=== PATIENT | female | born 1960 | race Caucasian/White ===

== ENCOUNTER 2018-05-12 07:22 | Emergency (ER) | payer OTHER ==
--- NOTE | 2018-05-12 09:43 | RAD REPORT ---
EXAM DESCRIPTION: RAD - Foot Left 3 View - 05/12/2018 7:44 am CLINICAL HISTORY: Left Foot pain status post injury FINDINGS: A mildly displaced oblique fracture involves the mid aspect of the third proximal phalanx. No dislocation is seen
--- NOTE | 2018-05-12 10:05 | ER ---
Nurse's Notes [facility] Name: Hue Hernandez Age: 57 yrs Sex: Female : 1960 Arrival Date: 05/12/2018 Time: 07:25 Bed 19 Private MD: Armando Rodriguez Diagnosis: Displaced fracture of proximal phalanx of left lesser toe(s)-Mildly displaced oblique fracture, third toe Presentation: 05/12 07:33 Presenting complaint: Patient states: kicked door yesterday on accident. C/o L third ss toe pain. Bruising noted to area. Transition of care: patient was not received from another setting of care. Onset of symptoms was May 11, 2018. Risk Assessment: Do you want to hurt yourself or someone else? Patient reports no desire to harm self or others. Initial Sepsis Screen: Does the patient meet any 2 criteria? No. Patient's initial sepsis screen is negative. Does the patient have a suspected source of infection? No. Patient's initial sepsis screen is negative. Care prior to arrival: None. 07:33 Method Of Arrival: Ambulatory ss 07:33 Acuity: TAYLOR 4 ss Historical: - Allergies: 07:38 Niacin; ss - Home Meds: 07:38 aspirin 81 mg Oral TbEC 1 tab once daily [Active]; atorvastatin 80 mg Oral tab 1 tab ss once daily [Active]; insulin glargine subcutaneous Sub-Q 20 unit nightly [Active]; insulin lispro subcutaneous 7 unit before meals [Active]; Plavix 75 mg Oral tab 1 tab once daily [Active]; - PMHx: 07:38 Diabetes - IDDM; Myocardial infarction; High Cholesterol; ss - PSHx: 07:38 Heart stents; ankle surg; ss - Immunization history:: Adult Immunizations up to date. - Social history:: Smoking status: Patient/guardian denies using tobacco. - Ebola Screening: : Patient denies exposure to infectious person Patient denies travel to an Ebola-affected area in the 21 days before illness onset. Screenin:40 Abuse screen: Denies threats or abuse. Denies injuries from another. Nutritional sg screening: No deficits noted. Tuberculosis screening: No symptoms or risk factors identified. Never had TB. Fall Risk None identified. Assessment: 07:40 General: Appears in no apparent distress. Behavior is calm, cooperative, appropriate sg for age. Pain: Complains of pain in left third toe. Neuro: No deficits noted. Cardiovascular: Heart tones S1 S2 present Capillary refill is brisk in bilateral fingers toes Patient's skin is warm and dry. Respiratory: Airway Respiratory effort is even, unlabored, Respiratory pattern is regular, symmetrical, Denies cough, shortness of breath labored breathing, pain with respiration, pain with cough, pain with movement, air hunger. GI: No signs and/or symptoms were reported involving the gastrointestinal system. : No signs and/or symptoms were reported regarding the genitourinary system. EENT: No signs and/or symptoms were reported regarding the EENT system. Derm: Skin is pink, warm \T\ dry. Musculoskeletal: Circulation, motion, and sensation intact. Range of motion: intact in all extremities, Swelling absent Reports pain in left foot. Vital Signs: 07:38 BP 112 / 83; Pulse 95; Resp 16; Pulse Ox 96% on R/A; Weight 80.29 kg; Height 5 ft. 10 ss in. (177.80 cm); Pain 6/10; 08:26 BP 94 / 74; Pulse 82; Resp 16; Pulse Ox 92% on R/A; mh5 09:18 BP 94 / 73; Pulse 81; Resp 18; Pulse Ox 94% on R/A; mh5 07:38 Body Mass Index 25.40 (80.29 kg, 177.80 cm) ss ED Course: 07:25 Patient arrived in ED. sb2 07:26 Armando Rodriguez MD is Private Physician. sb2 07:28 [facility] pm1 07:36 Triage completed. ss 07:38 Arm band placed on right wrist. ss 07:44 X-ray completed. Portable x-ray completed in exam room. Patient tolerated procedure jb2 well. 07:44 Foot Left 3 View XRAY In Process Unspecified. EDMS 09:21 Ousmane Silva, JANA is Primary Nurse. sg 09:50 Reji tape left third toe to left second toe Ortho shoe applied to left foot. sg 10:00 Fabrice Lyman MD is Attending Physician. pm1 Administered Medications: No medications were administered Outcome: 09:51 Discharge ordered by MD. pm1 10:05 Patient left the ED. ss Signatures: Dispatcher [employer] EDMS Ousmane Silva, RN RN sg Karl Mendes jb2 Keira Ferreira RN RN ss Isidro Cervantes, NILS ASPHALT SPREADER 1 Chayo Santos 5 Flores Hernandez2 Corrections: (The following items were deleted from the chart) 09:24 07:40 Pain: Complains of pain in left second toe sg sg
--- NOTE | 2018-05-12 10:05 | EDPHYS ---
Physician Documentation [facility] Name: Hue Hernandez Age: 57 yrs Sex: Female : 1960 Arrival Date: 05/12/2018 Time: 07:25 Bed 19 Private MD: Armando Rodriguez ED Physician Fabrice Lyman HPI: 05/12 10:00 This 57 yrs old Female presents to ER via Ambulatory with complaints of Toe pm1 Injury. 10:00 The patient presents with pain, that is acute. The complaints affect the left foot. pm1 Context: The problem was sustained at home, the patient is able to ambulate, Stubbed third toe. Onset: The symptoms/episode began/occurred last night. Modifying factors: The symptoms are alleviated by nothing, the symptoms are aggravated by weight bearing. Severity of symptoms: in the emergency department the symptoms are unchanged. The patient has not experienced similar symptoms in the past. The patient has not recently seen a physician. Historical: - Allergies: 07:38 Niacin; ss - Home Meds: 07:38 aspirin 81 mg Oral TbEC 1 tab once daily [Active]; atorvastatin 80 mg Oral tab 1 tab ss once daily [Active]; insulin glargine subcutaneous Sub-Q 20 unit nightly [Active]; insulin lispro subcutaneous 7 unit before meals [Active]; Plavix 75 mg Oral tab 1 tab once daily [Active]; - PMHx: 07:38 Diabetes - IDDM; Myocardial infarction; High Cholesterol; ss - PSHx: 07:38 Heart stents; ankle surg; ss - Immunization history:: Adult Immunizations up to date. - Social history:: Smoking status: Patient/guardian denies using tobacco. - Ebola Screening: : Patient denies exposure to infectious person Patient denies travel to an Ebola-affected area in the 21 days before illness onset. ROS: 10:00 MS/extremity: Positive for pain, swelling, tenderness, of the left third toe. pm1 10:00 Constitutional: Negative for fever, chills, and weight loss, Cardiovascular: Negative for chest pain, palpitations, and edema, Respiratory: Negative for shortness of breath, cough, wheezing, and pleuritic chest pain, Back: Negative for injury and pain, Skin: Negative for injury, rash, and discoloration. Exam: 10:00 Constitutional: This is a well developed, well nourished patient who is awake, alert, pm1 and in no acute distress. Head/Face: Normocephalic, atraumatic. Chest/axilla: Normal chest wall appearance and motion. Nontender with no deformity. No lesions are appreciated. Cardiovascular: Regular rate and rhythm with a normal S1 and S2. No gallops, murmurs, or rubs. Normal PMI, no JVD. No pulse deficits. Respiratory: Lungs have equal breath sounds bilaterally, clear to auscultation and percussion. No rales, rhonchi or wheezes noted. No increased work of breathing, no retractions or nasal flaring. Back: No spinal tenderness. No costovertebral tenderness. Full range of motion. Skin: Warm, dry with normal turgor. Normal color with no rashes, no lesions, and no evidence of cellulitis. 10:00 Musculoskeletal/extremity: Extremities: grossly normal except: noted in the left third toe: swelling, tenderness, ROM: intact in all extremities, Circulation is intact in all extremities. Vital Signs: 07:38 BP 112 / 83; Pulse 95; Resp 16; Pulse Ox 96% on R/A; Weight 80.29 kg; Height 5 ft. 10 ss in. (177.80 cm); Pain 6/10; 08:26 BP 94 / 74; Pulse 82; Resp 16; Pulse Ox 92% on R/A; mh5 09:18 BP 94 / 73; Pulse 81; Resp 18; Pulse Ox 94% on R/A; mh5 07:38 Body Mass Index 25.40 (80.29 kg, 177.80 cm) ss MDM: 07:28 Patient medically screened. pm1 07:31 ED course: Patient offered pain medication. Patient refused. pm1 09:49 Data reviewed: vital signs. 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 05/12 07:28 Order name: Foot Left 3 View XRAY; Complete Time: 09:45 pm1 05/12 09:46 Order name: Post-op shoe; Complete Time: 09:54 pm1 Administered Medications: No medications were administered Disposition: 10:46 Co-signature as Attending Physician, Fabrice Lyman MD I agree with the assessment and jj plan of care. Disposition: 05/12/18 09:51 Discharged to Home. Impression: Displaced fracture of proximal phalanx of left lesser toe(s) - Mildly displaced oblique fracture, third toe. - Condition is Stable. - Discharge Instructions: Toe Fracture. - Prescriptions for Tylenol- Codeine #3 300-30 mg Oral Tablet - take 2 tablets by ORAL route every 6 hours As needed; 20 tablet. - Medication Reconciliation Form, Thank You Letter, Prescription Opioid Use form. - Follow up: Emergency Department; When: As needed; Reason: Worsening of condition. Follow up: Private Physician; When: 2 - 3 days; Reason: Recheck today's complaints, Continuance of care, Re-evaluation by your physician. - Problem is new. - Symptoms have improved. Signatures: Dispatcher [employer] EDMS Fabrice Lyman MD MD cha Smirch, Shelby, RN RN Isidro Miller, NILS CAPACITY ANALYST pm1 Corrections: (The following items were deleted from the chart) 09:59 09:51 05/12/2018 09:51 Discharged to Home. Impression: Nondisplaced fracture of pm1 proximal phalanx of left lesser toe(s) - third toe. Condition is Stable. Forms are Medication Reconciliation Form, Thank You Letter, Antibiotic Education, Prescription Opioid Use. Follow up: Emergency Department; When: As needed; Reason: Worsening of condition. Follow up: Private Physician; When: 2 - 3 days; Reason: Recheck today's complaints, Continuance of care, Re-evaluation by your physician. Problem is new. Symptoms have improved. pm1 10:05 09:59 05/12/2018 09:51 Discharged to Home. Impression: Displaced fracture of proximal ss phalanx of left lesser toe(s) - Mildly displaced oblique fracture, third toe. Condition is Stable. Forms are Medication Reconciliation Form, Thank You Letter, Antibiotic Education, Prescription Opioid Use. Follow up: Emergency Department; When: As needed; Reason: Worsening of condition. Follow up: Private Physician; When: 2 - 3 days; Reason: Recheck today's complaints, Continuance of care, Re-evaluation by your physician. Problem is new. Symptoms have improved. pm1
[2018-05-12 10:11] VITALS: BP 94/73; O2SAT 94
== END 2018-05-12 10:05 | disposition home or self-care (01) ==
LOC: ER 07:22
DX: S92.512A Displaced fracture of proximal phalanx of left lesser toe(s), initial encounter for closed fracture (principal); S92.515A Nondisplaced fracture of proximal phalanx of left lesser toe(s), initial encounter for closed fracture; E11.9 Type 2 diabetes mellitus without complications; I25.2 Old myocardial infarction; Z88.8 Allergy status to other drugs, medicaments and biological substances; E78.00 Pure hypercholesterolemia, unspecified; X58.XXXA Exposure to other specified factors, initial encounter; Y93.89 Activity, other specified; Y92.9 Unspecified place or not applicable; Y99.9 Unspecified external cause status; Z79.4 Long term (current) use of insulin
CPT/HCPCS: 99283

== ENCOUNTER 2019-05-22 19:09 | Emergency (ER) | payer OTHER ==
--- OUTSIDE RECORDS SUMMARY | 2019-05-22 19:15 | XMS REPORT | Continuity of Care Document ---
:1960 Author Organization Interface Problems Problem Status Onset Classification Date Comments Source Date Reported CHEST PAIN Active 07/23/[address]UTE ST Active 07/14/[address] MYOCARDIAL Center INFARCTION CARDIAC ARREST Active 07/14/[address] ACUTE ELEVATION Active 07/14/20 [place] [id number] Medical INFRACTION Center LFLT Active 07/14/[address] Chest pain Resolved Problem 07/26/[address] [facility] Hypertension Resolved Problem 07/26/[address] [facility] ST ELEVATION Active [facility] (STEMI) [facility] MYOCARDIAL [place] INFARCTI Medications Medication Details Route Status Patient Ordering Order Source Instructions Provider Date Insulin Glargine 20 unit, 0.2 mL, Inactive [facility] 100 UNT/ML Route: SUB-Q, 2017 Medical Injectable Drug form: SOLN, Center Solution Bedtime, Dosing Weight 76.7, kg, Start date: 07/23/17 21:00:00 CDT, Duration: 30 day, Stop date: 08/21/17 21:00:00 CDTNotes: (Same as: Lantus) Do not hold insulin without contacting prescriber WASTE: F/P - Black; E - Municipal Trash Bin "single patient use only" atorvastatin 80 mg, 1 tab, Inactive 07/24[facility] Route: PO, Drug 2016 Medical form: TAB, Center Bedtime, Dosing Weight 76.7, kg, Start date: 07/23/17 21:00:00 CDT, Duration: 30 day, Stop date: 08/21/17 21:00:00 CDTNotes: Same as Lipitor clopidogrel 75 mg, 1 tab, Inactive 07/23[facility] Route: PO, Drug 2016 Medical form: TAB, Daily, Center Dosing Weight 76.7, kg, Start date: 07/23/17 9:00:00 CDT, Duration: 30 day, Stop date: 08/21/17 9:00:00 CDTNotes: (Same As: Plavix) aspirin 81 mg 81 mg, 1 tab, Inactive [place] tablet, enteric Route: PO, Drug 2017 Medical coated form: ECTAB, Center Daily, Dosing Weight 76.7, kg, Start date: 07/23/17 9:00:00 CDT, Duration: 30 day, Stop date: 08/21/17 9:00:00 CDTNotes: Do not crush or chew. (Same As: Ecotrin) Insulin Lispro 7 unit, 0.07 mL, Inactive [facility] Route: SUB-Q, 2017 Medical Drug form: SOLN, [place] TID-Before Meals, Dosing Weight 76.7, kg, Start date: 07/23/17 7:30:00 CDT, Duration: 30 day, Stop date: 08/21/17 16:30:00 CDTNotes: (Same as: Humalog ) Roll in palms of hands gently; Do not shake `vigorously. "Single Patient Use Only " (Restricted to patients requiring a dose > 60 units) WASTE: F/P - Black; E - Municipal Trash Bin Stable for 28 days at room temperature. Expires in days from Dat e Lancets 1 box, MISC, Active [facility] Daily, # 1 box, 0 2017 Medical Refill(s) Center Accu-Chek Jenise 1 ea, MISC, Active [place] Plus Blood Daily, Use for 2017 Medical Glucose Test blood glucose Center Strips monitoring., # 100 ea, Insulin dependent, Does not use insulin pump, Last DM eval date 07/21/17, 3 Refill(s) Accu-Chek Jenise 1 ea, MISC, ONCE, Active [facility] Blood Glucose Use for blood 2017 Medical Meter glucose Center monitoring, # 1 ea, Insulin dependent, Does not use insulin pump, Last DM eval date 07/21/17, 0 Refill(s) Lancets 1 box, MISC, Inactive [facility] Daily, # 1 box, 0 2017 Medical Refill(s) Center Insulin Glargine 20 unit, SUB-Q, Active [facility] 100 UNT/ML Bedtime, # 10 mL, 2017 Medical Injectable 3 Refill(s) Center Solution insulin lispro 7 unit, SUB-Q, Active [place] 100 units/mL TID-Before Meals, 2017 Medical subcutaneous # 10 mL, 3 Center injection Refill(s) clopidogrel 75 75 mg=1 tab, PO, Active [facility] mg oral tablet Daily, # 90 tab, 2017 Medical 0 Refill(s) Center atorvastatin 80 80 mg=1 tab, PO, Active [facility] mg oral tablet Bedtime, # 90 2017 Medical tab, 0 Refill(s) Center Accu-Chek Jenise 1 ea, MISC, Inactive [place] Plus Blood Daily, Use for 2017 Medical Glucose Test blood glucose Center Strips monitoring., # 100 ea, Insulin dependent, Does not use insulin pump, Last DM eval date 07/21/17, 3 Refill(s) Accu-Chek Jenise 1 ea, MISC, ONCE, Inactive [facility] Blood Glucose Use for blood 2017 Medical Meter glucose Center monitoring, # 1 ea, Insulin dependent, Does not use insulin pump, Last DM eval date 07/21/17, 0 Refill(s) aspirin 81 mg 81 mg=1 tab, PO, Active [facility] tablet, enteric Daily, # 90 tab, 2017 Medical coated 0 Refill(s) Center sodium chloride 250 mL, Rate: 999 Inactive [place] 0.9% INJ 250 mL ml/hr, Infuse 2017 Medical over: 0.3 hr, Center Route: IV, Dosing Weight 86.108 kg, Total Volume: 250, Start date: 07/21/17 1:16:00 CDT, Duration: 1 doses or times, Stop date: 07/21/17 1:33:00 CDT sodium chloride 250 mL, Rate: 999 No Longer [facility] 0.9% INJ 250 mL ml/hr, Infuse Active 2016 Medical over: 0.3 hr, Center Route: IV, Dosing Weight 86.108 kg, Total Volume: 250, Start date: 07/20/17 6:15:00 CDT, Duration: 30 day, Stop date: 08/19/17 6:14:00 CDT Calcium 3 gm, 30 mL, No Longer [facility] Gluconate Route: IVPB, PRN, Active 2016 Medical Dosing Weight Center 86.108, kg, PRN Abnormal Lab Result, For NON-ICU Patients Only., Start date: 07/20/17 4:23:00 CDT, Duration: 30 day, Stop date: 08/19/17 4:22:00 CDTNotes: WASTE: F/P - Sink; E - Municipal Trash Bin sodium phosphate 15 mmol, 5 mL, No Longer [place] Route: IVPB, PRN, Active 2017 Medical Dosing Weight Center 86.108, kg, PRN Abnormal Lab Result, For NON-ICU Patients Only., Start date: 07/20/17 4:23:00 CDT, Duration: 30 day, Stop date: 08/19/17 4:22:00 CDT potassium 15 mmol, 5 mL, No Longer [place] phosphate Route: IVPB, PRN, Active 2016 Medical Dosing Weight Center 86.108, kg, PRN Abnormal Lab Result, For NON-ICU Patients Only., Start date: 07/20/17 4:23:00 CDT, Duration: 30 day, Stop date: 08/19/17 4:22:00 CDTNotes: (Same as: K Phosphate.) 1 mMol phoshate has 1.47 mEq potassium Infuse over 4 hours Potassium 10 mEq, 50 mL, No Longer [place] Chloride Route: IVPB, Drug Active 2016 Medical form: INJ, PRN, Center Dosing Weight 86.108, kg, PRN Abnormal Lab Result, For NON-ICU Patients Only, Start date: 07/20/17 4:23:00 CDT, Duration: 30 day, Stop date: 08/19/17 4:22:00 CDTNotes: (Same as: KCL) Infuse over 2 hours. potassium 2 pkt, Route: PO, No Longer [place] phosphate-sodium Drug Form: Active 2017 Medical phosphate 250 PDR/REC, Dosing Center mg-280 mg-160 mg Weight 86.108, oral powder for kg, PRN, PRN reconstitution Abnormal Lab Result, For NON-ICU Patients Only, Start date: 07/20/17 4:23:00 CDT, Duration: 30 day, Stop date: 08/19/17 4:22:00 CDTNotes: (Same as: Phos-NaK) Each 1.5 gm pkt has 250mg phosphorous. Mix w/2.5oz water and stir. Magnesium Oxide 800 mg, 2 tab, No Longer [place] Route: PO, Drug Active 2016 Medical form: TAB, PRN, Center Dosing Weight 86.108, kg, PRN Abnormal Lab Result, For NON-ICU Patients Only., Start date: 07/20/17 4:23:00 CDT, Duration: 30 day, Stop date: 08/19/17 4:22:00 CDTNotes: (Same as: Mag-Ox 400) Magnesium oxide [id number] elemental magnesium Dose=____mg magnesium oxide (___mg elemental magnesium) Magnesium 1 gm, 100 mL, No Longer [place] Sulfate Route: IVPB, Drug Active 2016 Medical form: INJ, PRN, Center Dosing Weight 86.108, kg, PRN Abnormal Lab Result, For NON-ICU Patients Only., Start date: 07/20/17 4:23:00 CDT, Duration: 30 day, Stop date: 08/19/17 4:22:00 CDTNotes: WASTE: F/P - Sink; E - Municipal Trash Bin sodium chloride 250 mL, Rate: 250 Inactive [place] 0.9% INJ 250 mL ml/hr, Infuse 2016 Medical over: 1 hr, Center Route: IV, Dosing Weight 86.108 kg, Total Volume: 250, Start date: 07/19/17 17:06:00 CDT, Duration: 1 doses or times, Stop date: 07/20/17 17:05:00 CDT sodium chloride 250 mL, Rate: No Longer [place] 0.9% INJ 250 mL 83.33 ml/hr, Active 2016 Medical Infuse over: 3 Center hr, Route: IV, Dosing Weight 86.108 kg, Total Volume: 250, Start date: 07/19/17 9:21:00 CDT, Duration: 30 day, Stop date: 08/18/17 9:20:00 CDT sodium chloride 250 mL, Rate: 50 No Longer [place] 0.9% INJ 250 mL ml/hr, Infuse Active 2016 Medical over: 5 hr, Center Route: IV, Dosing Weight 86.108 kg, Total Volume: 250, Start date: 07/19/17 1:05:00 CDT, Duration: 30 day, Stop date: 08/18/17 1:04:00 CDT sodium chloride 1,000 mL, Rate: No Longer [place] 0.9% 1000 ml INJ 75 ml/hr, Infuse Active 2016 Medical 1,000 mL over: 13.3 hr, Center Route: IV, Dosing Weight 86.108 kg, Total Volume: 1,000, Start date: 07/18/17 16:27:00 CDT, Duration: 1 day, Stop date: 07/19/17 16:26:00 CDT sodium chloride 250 mL, Rate: 999 Inactive [place] 0.9% INJ 250 mL ml/hr, Infuse 2017 Medical over: 0.3 hr, Center Route: IV, Dosing Weight 86.108 kg, Total Volume: 250, Start date: 07/18/17 14:14:00 CDT, Duration: 1 doses or times, Stop date: 07/18/17 14:31:00 CDT sodium chloride 250 mL, Rate: 50 No Longer [place] 0.9% INJ 250 mL ml/hr, Infuse Active 2016 Medical over: 5 hr, Center Route: IV, Dosing Weight 86.108 kg, Total Volume: 250, Start date: 07/18/17 5:03:00 CDT, Duration: 30 day, Stop date: 08/17/17 5:02:00 CDT Docusate Sodium 50 mg, 1 cap, No Longer [place] 50 MG Oral Route: PO, Drug Active 2016 Medical Capsule [Colace] form: CAP, BID, Center Dosing Weight 86.108, kg, PRN Constipation, Start date: 07/18/17 0:37:00 CDT, Duration: 30 day, Stop date: 08/17/17 0:36:00 CDTNotes: (Same as: Colace) (Do Not Crush) Miralax 17 gm, 1 pkt, No Longer [place] Route: PO, Drug Active 2016 Medical form: PWDR, Center Daily, Dosing Weight 86.108, kg, PRN Constipation, Start date: 07/18/17 0:35:00 CDT, Duration: 30 day, Stop date: 08/17/17 0:34:00 CDTNotes: Dissolve in 8 oz of water or juice. (Same as: Miralax) Albuterol 0.833 3 mL, Route: NEB, No Longer [place] MG/ML / Drug Form: SOLN, Active 2016 Medical Ipratropium Dosing Weight Center [place] 0.167 86.108, kg, RQID, MG/ML Inhalant PRN Shortness of Solution breath, Start date: 07/17/17 8:16:00 CDT, Stop date: 08/16/17 8:15:00 CDTNotes: (Same as: Duoneb) heparin sodium, 5,000 unit, 1 mL, No Longer [place] porcine 2500 Route: SUB-Q, Active 2016 Medical UNT/ML Drug form: INJ, Center Injectable Q12H, Dosing Solution Weight 86.108, kg, Start date: 07/16/17 21:00:00 CDT, Duration: 30 day, Stop date: 08/15/17 9:00:00 CDTNotes: porcine heparin NS (Bolus) IV 500 mL, 100 Inactive [place] ml/hr, Infuse 2016 Medical Over: 5 hr, Center Route: IV, 500, Drug form: INJ, ONCE, Priority: STAT, Dosing Weight 86.108 kg, Start date: 07/16/17 16:22:00 CDT, Duration: 1 doses or times, Stop date: 07/16/17 16:22:00 CDT Insulin Lispro 7 unit, 0.07 mL, No Longer [place] Route: SUB-Q, Active 2016 Medical Drug form: SOLN, [place] TID-Before Meals, Dosing Weight 86.108, kg, Start date: 07/16/17 14:02:00 CDT, Duration: 30 day, Stop date: 08/15/17 11:30:00 CDTNotes: (Same as: Humalog ) Roll in palms of hands gently; Do not shake `vigorously. "Single Patient Use Only " (Restricted to patients requiring a dose > 60 units) WASTE: F/P - Black; E - Municipal Trash Bin Stable for 28 days at room temperature. Expires in days from Dat e Iohexol 85 mL, Route: Inactive [place] IVP, Drug Form: 2017 Medical SOLN, Dosing Center Weight 86.108, kg, ONCALL, STAT, Start date: 07/16/17 11:24:00 CDT, Duration: 1 doses or times, Stop date: 07/16/17 12:00:00 CDT, Dose=2.2ml/kg, Max [id number] -- "To be infused by Radiology Staff ONLY"Notes: (same as:Omnipaque 350). WASTE: F/P - Black; E - Municipal Trash Bin Lovenox 86.108 mg, 0.86 Inactive [place] mL, Route: SUB-Q, 2016 Medical Drug form: INJ, Center [id number], Dosing Weight 86.108, kg, Priority: NOW, Start date: 07/16/17 10:41:00 CDT, Duration: 30 day, Stop date: 08/14/17 22:41:00 CDTNotes: Nurse to ensure documentation of patient education per anticoagulation policy. (Same as: Lovenox) Furosemide 100 mg, 10 mL, Inactive [place] Rate: 5 mg/hour, 2017 Medical Dosing Weight Center 86.108, kg, Route: IV, Total Volume: 100, Start Date: 07/16/17 9:15:00 CDT, Duration: 30 day, Stop date: 08/15/17 9:14:00 CDT, Replace Every: 24 hr, continuousNotes: (Same as: Lasix) MEDICATION WASTE Product Size: 100 mg Product Wasted: ___ mg insulin glargine 20 unit, 0.2 mL, No Longer [place] Route: SUB-Q, Active 2016 Medical Drug form: SOLN, [place] Bedtime, Start date: 07/16/17 1:45:00 CDT, Duration: 30 day, Stop date: 08/14/17 21:00:00 CDTNotes: Same as: Lantus) Do not hold insulin without contacting prescriber WASTE: F/P - Black; E - Municipal Trash Bin Insulin regular 1 unit, 0.01 mL, No Longer [place] Route: SUB-Q, Active 2016 Medical Drug form: [facility], [place] TID-Before Meals, Dosing Weight 86.108, kg, PRN Blood Glucose Results, Start date: 07/16/17 1:19:00 CDT, Duration: 30 day, Stop date: 08/15/17 1:18:00 CDTNotes: (Same as: Humulin R) Roll in palms of hands gently; Do not shake vigorously. "single patient use only" (Restricted to patients requiring a dose > 60 units) WASTE: F/P - Black; E - Municipal Trash Bin Stable for 28 days at room temperature Expires in days from Dat e Dextrose 50% 25 gm, 50 mL, No Longer [facility] Syringe Route: IVP, Drug Active 2016 Medical Form: INJ, Dosing Center Weight 86.108, kg, PRN, PRN Blood Glucose Results, Start date: 07/16/17 1:19:00 CDT, Duration: 30 day, Stop date: 08/15/17 1:18:00 CDT Glucagon 1 mg, Route: IM, No Longer [facility] Drug form: Active 2016 Medical PDR/INJ, PRN, Center Dosing Weight 86.108, kg, PRN Blood Glucose Results, Start date: 07/16/17 1:19:00 CDT, Duration: 30 day, Stop date: 08/15/17 1:18:00 CDT Levemir 20 unit, Route: Inactive [facility] SUB-Q, Bedtime, 2017 Medical Dosing Weight Center 86.108, kg, Start date: 07/16/17 1:18:00 CDT, Duration: 30 day, Stop date: 08/14/17 21:00:00 CDT Lasix 40 mg, 4 mL, No Longer [facility] Route: IVP, Drug Active 2016 Medical form: INJ, BID Center Diuretic, Dosing Weight 86.108, kg, Start date: 07/15/17 20:06:00 CDT, Duration: 30 day, Stop date: 08/14/17 14:00:00 CDTNotes: (Same as: Lasix) MEDICATION WASTE Product Size: 40 mg Product Wasted: _0_ mg Lisinopril 5 mg, 1 tab, No Longer [facility] Route: PO, Drug Active 2016 Medical form: TAB, Daily, Center Dosing Weight 86.108, kg, Start date: 07/15/17 18:21:00 CDT, Duration: 30 day, Stop date: 08/14/17 9:00:00 CDTNotes: (Same as: Barbra Baez) Dextrose 50% 12.5 gm, 25 mL, No Longer [place] Syringe Route: IVP, Drug Active 2016 Medical Form: INJ, Dosing Center Weight 86.108, kg, PRN, PRN Blood Glucose Results, Start date: 07/15/17 13:22:00 CDT, Duration: 30 day, Stop date: 08/14/17 13:21:00 CDT Insulin regular 99 mL, Rate: No Longer [place] 100 unit + Start Insulin Active 2016 Medical sodium chloride Drip Per ICU Center 0.9% INJ 99 mL Protocol, Dosing Weight 86.108, kg, Route: IV, Total Volume: 100, Start Date: 07/15/17 13:22:00 CDT, Stop date: 08/14/17 13:21:00 CDT, Replace Every: 24 hrNotes: (Same as: Humulin R and NovoLIN R) WASTE: F/P - Black; E - Municipal Trash Bin (Do not shake) Insulin regular 99 mL, Rate: Inactive [place] 100 unit + Titrate per ICU 2017 Medical sodium chloride dosing Center 0.9% INJ 99 mL guidelines, Dosing Weight 86.108, kg, Route: IV, Total Volume: 100 mL, Start Date: 07/15/17 13:21:00 CDT, Duration: 30 day, Stop date: 08/14/17 13:20:00 CDT, Replace Every: 24 hrNotes: (Same as: Humulin R and NovoLIN R) WASTE: F/P - Black; E - Municipal Trash Bin (Do not shake) metoprolol 12.5 mg, 0.5 tab, Inactive [place] tartrate Route: PO, Drug 2016 Medical form: TAB, Daily, Center Dosing Weight 86.108, kg, Start date: 07/15/17 11:00:00 CDT, Duration: 30 day, Stop date: 08/14/17 9:00:00 CDTNotes: (Same as: Lopressor) 12.5 mg=1/2 X 25 mg TAB Insulin regular 2 unit, 0.02 mL, Inactive [facility] Route: SUB-Q, 2017 Medical Drug form: SOLN, Center TID-Before Meals, Dosing Weight 86.108, kg, PRN Blood Glucose Results, Start date: 07/15/17 9:42:00 CDT, Duration: 30 day, Stop date: 08/14/17 9:41:00 CDTNotes: (Same as: Humulin R) Roll in palms of hands gently; Do not shake vigorously. "single patient use only" (Restricted to patients requiring a dose > 60 units) WASTE: F/P - Black; E - Municipal Trash Bin Stable for 28 days at room temperature Expires in days from Dat e Glucagon 1 mg, Route: IM, No Longer [facility] Drug form: Active 2017 Medical PDR/INJ, PRN, Center Dosing Weight 86.108, kg, PRN Blood Glucose Results, Start date: 07/15/17 9:42:00 CDT, Duration: 30 day, Stop date: 08/14/17 9:41:00 CDT Dextrose 50% 12.5 gm, 25 mL, Inactive [facility] Syringe Route: IVP, Drug 2016 Medical Form: INJ, Dosing Center Weight 86.108, kg, PRN, PRN Blood Glucose Results, Start date: 07/15/17 9:42:00 CDT, Duration: 30 day, Stop date: 08/14/17 9:41:00 CDT Lasix 40 mg, 4 mL, Inactive 07/15[facility] Route: IVP, Drug 2016 Medical form: INJ, ONCE, Center Dosing Weight 86.108, kg, Start date: 07/15/17 9:41:00 CDT, Stop date: 07/15/17 9:41:00 CDTNotes: (Same as: Lasix) MEDICATION WASTE Product Size: 40 mg Product Wasted: ___ mg pneumococcal 0.5 mL, Route: Inactive 07/15[facility] capsular IM, Drug Form: 2017 Medical polysaccharide INJ, Daily, Start Center type 1 vaccine / date: 07/15/17 pneumococcal 9:00:00 CDT, capsular Duration: 1 doses polysaccharide or times, Stop type 10A vaccine date: 07/15/17 / pneumococcal 9:00:00 CDTNotes: capsular (Same as: polysaccharide Pneumovax 23) type 11A vaccine Refrigerate / pneumococcal capsular polysaccharide type 12F vaccine / pneumococcal capsular polysacchar heparin 5,000 unit, 1 mL, No Longer [facility] Route: SUB-Q, Active 2016 Medical Drug form: INJ, Center Q12H, Dosing Weight 86.108, kg, Start date: 07/15/17 9:00:00 CDT, Duration: 30 day, Stop date: 08/13/17 21:00:00 CDTNotes: porcine heparin aspirin 81 mg 81 mg, 1 tab, No Longer [facility] tablet, enteric Route: PO, Drug Active 2016 Medical coated form: ECTAB, Center Daily, kg, Start date: 07/15/17 9:00:00 CDT, Duration: 30 day, Stop date: 08/13/17 9:00:00 CDTNotes: Do not crush or chew. (Same As: Ecotrin) clopidogrel 75 mg, 1 tab, No Longer [facility] Route: PO, Drug Active 2016 Medical form: TAB, Daily, Center kg, Start date: 07/15/17 9:00:00 CDT, Duration: 30 day, Stop date: 08/13/17 9:00:00 CDTNotes: (Same As: Plavix) Calcium 1 gm, 10 mL, No Longer [facility] Gluconate Route: IVPB, PRN, Active 2016 Medical Dosing Weight Center 86.108, kg, PRN Abnormal Lab Result, Start date: 07/15/17 5:56:00 CDT, Duration: 30 day, Stop date: 08/14/17 5:55:00 CDT, FOR ICU USE ONLYNotes: WASTE: F/P - Sink; E - Municipal Trash Bin Calcium 500 mg, 1 tab, No Longer [facility] Carbonate 500 MG Route: PO, Drug Active 2016 Medical Chewable Tablet form: CHEWTAB, Center PRN, Dosing Weight 86.108, kg, PRN Abnormal Lab Result, FOR ICU USE ONLY, Start date: 07/15/17 5:56:00 CDT, Duration: 30 day, Stop date: 08/14/17 5:55:00 CDTNotes: (Same As: Tums) Calcium Carbonate 500 bf=156 mg elemental calcium Dose= mg calcium carbonate ( mg elemental calcium) potassium 45 mmol, 15 mL, No Longer [place] phosphate Route: IVPB, PRN, Active 2016 Medical Dosing Weight Center 86.108, kg, PRN Abnormal Lab Result, Start date: 07/15/17 5:56:00 CDT, Duration: 30 day, Stop date: 08/14/17 5:55:00 CDT, FOR ICU USE ONLYNotes: (Same as: K Phosphate.) 1 mMol phoshate has 1.47 mEq potassium Infuse over 4 hours Magnesium Oxide 800 mg, 2 tab, No Longer [place] Route: PO, Drug Active 2016 Medical form: TAB, PRN, Center Dosing Weight 86.108, kg, PRN Abnormal Lab Result, FOR ICU USE ONLY, Start date: 07/15/17 5:56:00 CDT, Duration: 30 day, Stop date: 08/14/17 5:55:00 CDTNotes: (Same as: Mag-Ox 400) Magnesium oxide [id number] elemental magnesium Dose=____mg magnesium oxide (___mg elemental magnesium) potassium 2 pkt, Route: PO, No Longer [place] phosphate-sodium Drug Form: Active 2017 Medical phosphate 250 PDR/REC, Dosing Center mg-280 mg-160 mg Weight 86.108, oral powder for kg, PRN, PRN reconstitution Abnormal Lab Result, FOR ICU USE ONLY, Start date: 07/15/17 5:56:00 CDT, Duration: 30 day, Stop date: 08/14/17 5:55:00 CDTNotes: (Same as: Phos-NaK) Each 1.5 gm pkt has 250mg phosphorous. Mix w/2.5oz water and stir. Magnesium 2 gm, 50 mL, No Longer [place] Sulfate Route: IVPB, Drug Active 2016 Medical form: INJ, PRN, Center Dosing Weight 86.108, kg, PRN Abnormal Lab Result, Start date: 07/15/17 5:56:00 CDT, Duration: 30 day, Stop date: 08/14/17 5:55:00 CDT, FOR ICU USE ONLYNotes: WASTE: F/P - Sink; E - Municipal Trash Bin sodium phosphate 15 mmol, 5 mL, No Longer [place] Route: IVPB, PRN, Active 2016 Medical Dosing Weight Center 86.108, kg, PRN Abnormal Lab Result, Start date: 07/15/17 5:56:00 CDT, Duration: 30 day, Stop date: 08/14/17 5:55:00 CDT, FOR ICU USE ONLY Potassium 20 mEq, 15 mL, No Longer [place] Chloride Route: [place], Drug Active 2016 Medical form: LIQ, PRN, Center Dosing Weight 86.108, kg, PRN Abnormal Lab Result, Start date: 07/15/17 5:56:00 CDT, Duration: 30 day, Stop date: 08/14/17 5:55:00 CDT, FOR ICU USE ONLYNotes: (Same as: Potassium Chloride) Klor-Con 20 mEq, 1 tab, Inactive [place] Route: PO, Drug 2016 Medical form: ERTAB, Center ONCE, Dosing Weight 86.108, kg, Start date: 07/15/17 5:45:00 CDT, Stop date: 07/15/17 5:45:00 CDTNotes: (Same as: K-Dur 20) "Do Not Crush" With food and full glass of water Lasix 20 mg, 2 mL, Inactive [place] Route: IVP, Drug 2016 Medical form: INJ, ONCE, Center Dosing Weight 86.108, kg, Start date: 07/15/17 0:14:00 CDT, Stop date: 07/15/17 0:14:00 CDTNotes: (Same as: Lasix) Dextrose 50% 12.5 gm, 25 mL, No Longer [facility] Syringe Route: IVP, Drug Active 2016 Medical Form: INJ, Dosing Center Weight 86.108, kg, PRN, PRN Blood Glucose Results, Start date: 07/14/17 23:46:00 CDT, Duration: 30 day, Stop date: 08/13/17 23:45:00 CDT Insulin regular 99 mL, Rate: No Longer [place] 100 unit + Start Insulin Active 2016 Medical sodium chloride Drip Per ICU Center 0.9% INJ 99 mL Protocol, Dosing Weight 86.108, kg, Route: IVPB, Total Volume: 100, Start Date: 07/14/17 23:46:00 CDT, Duration: 30 day, Stop date: 08/13/17 23:45:00 CDT, Replace Every: 24 hrNotes: (Same as: Humulin R and NovoLIN R) WASTE: F/P - Black; E - Municipal Trash Bin (Do not shake) Fentanyl 25 microgram, 0.5 Inactive [facility] mL, Route: IVP, 2016 Medical Drug form: INJ, Center ONCE, Dosing Weight 86.108, kg, Start date: 07/14/17 23:09:00 CDT, Stop date: 07/14/17 23:09:00 CDTNotes: (Same as: Sublimaze) Preservative free. Melatonin 3 MG 3 mg, 1 tab, No Longer [facility] Extended Release Route: PO, Drug Active 2016 Medical Tablet Form: TAB, Dosing Center Weight 86.108, kg, Bedtime, Start date: 07/14/17 22:22:00 CDT, Duration: 30 day, Stop date: 08/13/17 21:00:00 CDTNotes: (Same as: Melatonin) Acetaminophen 1 tab, Route: PO, Inactive [facility] 325 MG / Drug Form: TAB, 2017 Medical Hydrocodone Dosing Weight Center Bitartrate 5 MG 86.108, kg, ONCE, Oral Tablet Start date: [[place] 5/325] 07/14/17 21:42:00 CDT, Stop date: 07/14/17 21:42:00 CDTNotes: (Same as: [place] 325/5) Do not exceed 4gm/day of acetaminophen. atorvastatin 80 mg, 1 tab, No Longer [facility] Route: PO, Drug Active 2016 Medical form: TAB, Center Bedtime, Dosing Weight 86.108, kg, Start date: 07/14/17 21:00:00 CDT, Duration: 30 day, Stop date: 08/12/17 21:00:00 CDTNotes: Same as Lipitor Saline Flush 10 ml, Route: No Longer [facility] 0.9% IVP, Drug Form: Active 2017 Medical INJ, kg, Q12H, Center Start date: 07/14/17 21:00:00 CDT, Duration: 30 day, Stop date: 08/13/17 9:00:00 CDTNotes: (Same as: BD Posiflush) Tylenol 650 mg, 2 tab, No Longer [place] Route: PO, Drug Active 2016 Medical form: TAB, Q6H, Center Dosing Weight 86.108, kg, PRN Pain Score 1-3, Start date: 07/14/17 16:40:00 CDT, Duration: 30 day, Stop date: 08/13/17 16:39:00 CDTNotes: Do not exceed 4 gm/day. (Same as: Tylenol) Sodium Chloride 250 mL, 250 Inactive [place] 0.9% (Bolus) IV ml/hr, Infuse 2017 Medical Over: 1 hr, Center Route: IV, 250, Drug form: INJ, ONCALL, Priority: Routine, Dosing Weight 86.108 kg, Start date: 07/14/17 15:00:00 CDT, Duration: 1 doses or times sodium chloride 750 mL, Rate: 75 No Longer [place] 0.9% 1000 ml INJ ml/hr, Infuse Active 2016 Medical 750 mL over: 10 hr, Center Route: IV, Dosing Weight 86.108 kg, Total Volume: 750, Start date: 07/14/17 14:52:00 CDT, Duration: 24 hr, Stop date: 07/15/17 14:51:00 CDT Saline Flush 10 ml, Route: No Longer [place] 0.9% IVP, Drug Form: Active 2017 Medical INJ, kg, PRN, PRN [place] Flush, Start date: 07/14/17 13:14:00 CDT, Duration: 30 day, Stop date: 08/13/17 13:13:00 CDTNotes: (Same as: BD Posiflush) Nitroglycerin 0.4 mg, 1 tab, No Longer [place] Route: SL, Drug Active 2016 Medical form: TAB, Q5Min, Center kg, PRN Chest Pain, Start date: 07/14/17 13:14:00 CDT, Duration: 3 doses or times, Stop date: Limited # of timesNotes: (Same as:Nitroquick, Nitrostat) "Do Not Crush" Sublingual tablet Allergies, Adverse Reactions, Alerts Substance Category Reaction Severity Reaction Status Date Comments Source type Reported niacin Assertion Drug Active [facility] allergy [facility] Immunizations Immunization Date Given Site Status Last Comments Source Updated pneumococcal 07/21/2017 Right completed [facility] 23-valent vaccine Deltoid [facility] Results Order Name Results Value Reference Date Interpretation Comments Source Range BACTERIAL - MRSA by PCR Negative 07/23 [facility] SEROLOGY [facility] (07/23/17 6:54 AM) [facility] CARDIAC CK MB Index 1.9 0.0 - 2.5 07/23 [facility] ENZYMES [facility] CARDIAC CK MB 4.3 ng/mL 0.5 - 3.6 07/23 [facility] ENZYMES [facility] CARDIAC Troponin-T 0.629 0.000 - 07/23 Result [facility] ENZYMES ng/mL 0.100 /2016 Comment: [facility] Result(s) called to Darshan Johnson at 07/23/2017 08:20 byMIA. Read back OK. CARDIAC Troponin-I 1.65 ng/mL 0.00 - 07/23 Result [facility] ENZYMES 0.40 /2016 Comment: [facility] Result(s) called to Esther Johnson at 07/23/2017 08:29 byJP. Read back OK. CARDIAC Total CK 229 unit/L 12 - 191 07/23 [facility] CHEM PANEL eGFR 68 07/23 Result Comment: The eGFR is calculated using the CKD-EPI formula. In most young, healthy individuals the eGFR will be >90 mL/ min/1.73m2. The eGFR declines with age. An eGFR of 60-89 may be normal in [facility] mL/min/1.7 /2017 some populations, particularly the elderly, for whom the CKD-EPI formula has not been extensively validated. Use of the eGFR is not recommended in the following populations: [address] Individuals with unstable creatinine concentrations, including patients and those with serious co-morbid conditions. Patients with extremes in muscle mass or diet. The data above are obtained from the National Kidney Disease Education Program (NKDEP) which additionally recommends that when the eGFR is used in patients with extremes of body mass index for purposes of drug dosing, the eGFR should be multiplied by the estimated BMI. CHEM PANEL Bili Total 0.4 mg/dL 0.2 - 1.3 07/[address] CHEM PANEL AST 34 unit/L 0 - 37 07/[address] CHEM PANEL Alk Phos 132 unit/L 39 - 136 07/[address] CHEM PANEL Glucose Lvl 121 mg/dL 70 - 99 07/[address] CHEM PANEL Creatinine 0.93 mg/dL 0.50 - 07/23 [facility] Lvl 1.40 [facility] CHEM PANEL BUN 21 mg/dL 7 - 22 07/[address] CHEM PANEL ALT 53 unit/L 0 - 65 07/[address] CHEM PANEL Albumin Lvl 3.3 g/dL 3.5 - 5.0 07/[address] CHEM PANEL CO2 23 meq/L 24 - 32 07/[address] CHEM PANEL Potassium Lvl 3.9 meq/L 3.5 - 5.1 07/[address] CHEM PANEL Chloride Lvl 105 meq/L 95 - 109 07/[address] CHEM PANEL Sodium Lvl 138 meq/L 135 - 145 07/[address] CHEM PANEL Calcium Lvl 8.5 mg/dL 8.5 - 10.5 07/[address] CHEM PANEL Total Protein 6.9 g/dL 6.4 - 8.4 07/[address] CHEM PANEL A/G Ratio 0.9 0.7 - 1.6 07/[address] CHEM PANEL Globulin 3.6 g/dL 2.7 - 4.2 07/[address] CHEM PANEL B/C Ratio 23 6 - 25 07/[address] CHEM PANEL AGAP 13.9 meq/L 10.0 - 07/23 [place] 20.0 [facility] HEMATOLOGY Eosinophils # 0.3 K/CMM 0.0 - 0.5 07/[address] HEMATOLOGY Basophils # 0.1 K/CMM 0.0 - 0.2 07/[address] HEMATOLOGY Monocytes # 0.6 K/CMM 0.0 - 0.8 07/[address] HEMATOLOGY Macrocyte 1+ None Seen 07/23 [facility] (07/23/17 6:54 AM) HEMATOLOGY Monocytes 6.7 % 2.0 - 12.0 07/23 [facility] HEMATOLOGY Segs 68.5 % 45.0 - 07/23 [facility] 75.0 [facility] HEMATOLOGY Lymphocytes 20.8 % 20.0 - 07/23 40.0 [facility] HEMATOLOGY Lymphocytes # 1.8 K/CMM 1.0 - 5.5 07/23 [facility] HEMATOLOGY Eosinophils 3.1 % 0.0 - 4.0 07/23 [facility] HEMATOLOGY Basophils 0.9 % 0.0 - 1.0 07/23 [facility] HEMATOLOGY Segs-Bands # 6.1 K/CMM 1.5 - 8.1 07/23 [facility] HEMATOLOGY PTT 36.2 s 22.9 - 07/23 35.8 [facility] HEMATOLOGY PT 13.6 s 12.0 - 07/23 14.7 [facility] HEMATOLOGY INR 1.02 0.85 - 07/23 1.17 [facility] HEMATOLOGY Platelet 178 K/CMM 133 - 450 07/23 [facility] HEMATOLOGY MPV 9.5 fL 7.4 - 10.4 07/23 [facility] HEMATOLOGY RDW 13.8 % 11.5 - 07/23 14.5 [facility] HEMATOLOGY MCHC 33.5 g/dL 32.0 - 07/23 [place] 36.0 [facility] HEMATOLOGY Hgb 11.8 g/dL 12.0 - 07/23 16.0 [facility] HEMATOLOGY Hct 35.3 % 36.0 - 07/23 48.0 [facility] HEMATOLOGY MCV 102.9 fL 80.0 - 07/23 [place] 98.0 [facility] HEMATOLOGY MCH 34.4 pg 27.0 - 07/23 31.0 [facility] HEMATOLOGY WBC 8.8 K/CMM 3.7 - 10.4 07/23 [facility] HEMATOLOGY RBC 3.43 M/CMM 4.20 - 07/23 [facility] 5.40 [facility] PARATHYROID Ca Norm WB 0.96 1.05 - 07/23 [facility] PROFILE mMol/L 1. [facility] PARATHYROID Ca Ion WB 0.93 1.05 - 07/23 [facility] PROFILE mMol/L 1. [facility] Chest 1view Chest 1view EXAM: XR CHEST 1 VIEW 07/23 - [facility] DX DX /2016 - [facility] DATE: 07/23/2017 7:59 AM CDT Read by: Litzy Hewitt MD Dictated Date/time: 07/23/17 09:19 Electronically Signed by: Litzy Hewitt MD 07/23/17 11:55 FINAL REPORT INDICATION: - short of breath. FINDINGS: Comparison is made to July 18. The cardiomediastinal silhouette is stable. There is platelike atelectasis in the bilateral lower lobes. No pleural effusions are identified. The Salcha-Sony catheter has been removed. IMPRESSION: Bilateral lower lobe platelike atelectasis. BLOOD BANK Antibody Scrn Negative 07/21 [facility] RESULTS [facility] (07/21/17 2:24 AM) [facility] BLOOD BANK ABO/Rh O POS 07/21 [facility] CHEM PANEL Magnesium Lvl 2.1 mg/dL 1.8 - 2.4 07/21 [facility]2016 [facility] CHEM PANEL Phosphorus 3.2 mg/dL 2.5 - 4.5 07/21 [facility]2016 [facility] CHEM PANEL eGFR 63 07/21 Result Comment: The eGFR is calculated using the CKD-EPI formula. In most young, healthy individuals the eGFR will be >90 mL/ min/1.73m2. The eGFR declines with age. An eGFR of 60-89 may be normal in [facility] mL/min/1. some populations, particularly the elderly, for whom the CKD-EPI formula has not been extensively validated. Use of the eGFR is not recommended in the following populations: [address] Individuals with unstable creatinine concentrations, including patients and those with serious co-morbid conditions. Patients with extremes in muscle mass or diet. The data above are obtained from the National Kidney Disease Education Program (NKDEP) which additionally recommends that when the eGFR is used in patients with extremes of body mass index for purposes of drug dosing, the eGFR should be multiplied by the estimated BMI. CHEM PANEL Chloride Lvl 103 meq/L 95 - 109 07/21 [facility] CHEM PANEL Potassium Lvl 3.8 meq/L 3.5 - 5.1 07/21 [facility] CHEM PANEL BUN 18 mg/dL 7 - 22 07/21 [facility] CHEM PANEL Sodium Lvl 137 meq/L 135 - 145 07/21 [facility] CHEM PANEL Creatinine 1.00 mg/dL 0.50 - 07/21 [facility] Lvl 1.40 /2016 [facility] CHEM PANEL Calcium Lvl 8.8 mg/dL 8.5 - 10.5 07/21 [facility] CHEM PANEL CO2 28 meq/L 24 - 32 07/21 2016 [facility] CHEM PANEL Glucose Lvl 120 mg/dL 70 - 99 07/21 [facility] CHEM PANEL AGAP 9.8 meq/L 10.0 - 07/21 20.0 [facility] HEMATOLOGY RBC 3.54 M/CMM 4.20 - 07/21 [facility] 5.40 [facility] HEMATOLOGY Hct 35.9 % 36.0 - 07/21 [facility] 48.0 [facility] HEMATOLOGY Hgb 12.3 g/dL 12.0 - 07/21 [facility] 16.0 [facility] HEMATOLOGY MCH 34.7 pg 27.0 - 07/21 [facility] 31.0 [facility] HEMATOLOGY MCV 101.6 fL 80.0 - 07/21 [facility] 98.0 [facility] HEMATOLOGY WBC 8.6 K/CMM 3.7 - 10.4 07/21 [facility] HEMATOLOGY MPV 10.1 fL 7.4 - 10.4 07/21 [facility] HEMATOLOGY Platelet 160 K/CMM 133 - 450 07/21 [facility] HEMATOLOGY MCHC 34.2 g/dL 32.0 - 07/21 [facility] 36.0 [facility] HEMATOLOGY RDW 13.4 % 11.5 - 07/21 [facility] 14.5 [facility] HEMATOLOGY Macrocyte 1+ None Seen 07/21 [facility]* [facility] (07/21/17 2:24 AM) HEMATOLOGY Basophils # 0.1 K/CMM 0.0 - 0.2 07/[address] [place] [address] HEMATOLOGY Lymphocytes # 1.6 K/CMM 1.0 - 5.5 07/21 2016 [facility] HEMATOLOGY Segs-Bands # 6.0 K/CMM 1.5 - 8.1 07/21 [facility] HEMATOLOGY Eosinophils # 0.3 K/CMM 0.0 - 0.5 07/21 [facility] HEMATOLOGY Monocytes # 0.7 K/CMM 0.0 - 0.8 07/21 [facility]2016 [facility] HEMATOLOGY Basophils 0.7 % 0.0 - 1.0 07/21 2016 [facility] HEMATOLOGY Monocytes 7.9 % 2.0 - 12.0 07/21 [facility] HEMATOLOGY Lymphocytes 18.4 % 20.0 - 07/21 [place] 40.0 [facility] HEMATOLOGY Eosinophils 3.7 % 0.0 - 4.0 07/21 2016 [facility] HEMATOLOGY Segs 69.3 % 45.0 - 07/21 [facility] 75.0 [facility] PARATHYROID Ca Norm WB 1.15 1.05 - 07/21 [facility] PROFILE mMol/L 1. [facility] PARATHYROID Ca Ion WB 1.16 1. - 07/21 [facility] PROFILE mMol/L . [facility] CHEM PANEL Calcium Lvl 8.2 mg/dL 8.5 - 10.5 07/[address] PARATHYROID Ca Ion WB 0.99 1.05 - 07/20 [facility] PROFILE mMol/L . [facility] PARATHYROID Ca Norm WB 1.03 1.05 - 07/20 [facility] PROFILE mMol/L . [facility] CARDIAC CK MB Index 1.2 0.0 - 2.5 07/20 [facility] [address] CARDIAC CK MB 2.5 ng/mL 0.5 - 3.6 07/20 [facility] CARDIAC Total CK 217 unit/L 12 - 191 07/20 [facility] [address] CHEM PANEL Magnesium Lvl 1.5 mg/dL 1.8 - 2.4 07/20 [facility]2016 [facility] CHEM PANEL Phosphorus 2.4 mg/dL 2.5 - 4.5 07/[address] CHEM PANEL eGFR 62 07/20 Result Comment: The eGFR is calculated using the CKD-EPI formula. In most young, healthy individuals the eGFR will be >90 mL/ min/1.73m2. The eGFR declines with age. An eGFR of 60-89 may be normal in [facility] mL/min/1.7 /2017 some populations, particularly the elderly, for whom the CKD-EPI formula has not been extensively validated. Use of the eGFR is not recommended in the following populations: [place] [address] [facility] Individuals with unstable creatinine concentrations, including patients and those with serious co-morbid conditions. Patients with extremes in muscle mass or diet. The data above are obtained from the National Kidney Disease Education Program (NKDEP) which additionally recommends that when the eGFR is used in patients with extremes of body mass index for purposes of drug dosing, the eGFR should be multiplied by the estimated BMI. CHEM PANEL CO2 17 meq/L 24 - 32 07/20 [facility] CHEM PANEL Chloride Lvl 105 meq/L 95 - 109 07/20 [facility] CHEM PANEL Calcium Lvl 6.7 mg/dL 8.5 - 10.5 07/20 Result Comment: [facility] Result(s) called to Eliseo Xavier at 07/20/2017 04:18 byJw. Read back OK. CHEM PANEL AGAP 19.3 meq/L 10.0 - 07/20 20. [facility] CHEM PANEL Potassium Lvl 4.3 meq/L 3.5 - 5.1 07/20 [facility] CHEM PANEL BUN 13 mg/dL 7 - 22 07/20 [facility] CHEM PANEL Glucose Lvl 72 mg/dL 70 - 99 07/20 [facility] CHEM PANEL Sodium Lvl 137 meq/L 135 - 145 07/20 [facility] CHEM PANEL Creatinine 1.01 mg/dL 0.50 - 07/20 [facility] Lvl 1.40 [facility] HEMATOLOGY RDW 13.6 % 11.5 - 07/20 14. [facility] HEMATOLOGY MCHC 33.7 g/dL 32.0 - 07/20 [place] 36.0 [facility] HEMATOLOGY MCH 34.8 pg 27.0 - 07/20 31.0 [facility] HEMATOLOGY MCV 103.1 fL 80.0 - 07/20 98.0 [facility] HEMATOLOGY RBC 3.30 M/CMM 4.20 - 07/20 [place] 5.40 [facility] HEMATOLOGY Hgb 11.5 g/dL 12.0 - 07/20 [place] 16.0 [facility] HEMATOLOGY WBC 8.1 K/CMM 3.7 - 10.4 07/[address] HEMATOLOGY MPV 10.0 fL 7.4 - 10.4 07/[address] HEMATOLOGY Platelet 141 K/CMM 133 - 450 07/[address] HEMATOLOGY Hct 34.0 % 36.0 - 07/20 [facility] 48.0 [facility] HEMATOLOGY Eosinophils # 0.3 K/CMM 0.0 - 0.5 07/[address] HEMATOLOGY Basophils # 0.1 K/CMM 0.0 - 0.2 07/[address] HEMATOLOGY Macrocyte 1+ None Seen 07/20 [facility] (07/20/17 2:23 AM) HEMATOLOGY Lymphocytes # 1.6 K/CMM 1.0 - 5.5 07/[address] HEMATOLOGY Monocytes 6.2 % 2.0 - 12.0 07/[address] HEMATOLOGY Eosinophils 4.0 % 0.0 - 4.0 07/[address] HEMATOLOGY Basophils 1.1 % 0.0 - 1.0 07/[address] HEMATOLOGY Segs-Bands # 5.6 K/CMM 1.5 - 8.1 07/[address] HEMATOLOGY Monocytes # 0.5 K/CMM 0.0 - 0.8 07/[address] HEMATOLOGY Lymphocytes 19.3 % 20.0 - 07/20 [facility] 40.0 [facility] HEMATOLOGY Segs 69.4 % 45.0 - 07/20 [facility] 75.0 [facility] CHEM PANEL Phosphorus 2.5 mg/dL 2.5 - 4.5 07/[address] CHEM PANEL Magnesium Lvl 1.9 mg/dL 1.8 - 2.4 07/[address] ELECTROLYTE CO2 23 meq/L 24 - 32 07/19 [facility] ELECTROLYTE AGAP 13.8 meq/L 10.0 - 07/19 [facility] 20. [facility] ELECTROLYTE eGFR 70 07/19 Result Comment: The eGFR is calculated using the CKD-EPI formula. In most young, healthy individuals the eGFR will be >90 mL/ min/1.73m2. The eGFR declines with age. An eGFR of 60-89 may be normal in [facility] mL/min/1.7 some populations, particularly the elderly, for whom the CKD-EPI formula has not been extensively validated. Use of the eGFR is not recommended in the following populations: [address] Individuals with unstable creatinine concentrations, including patients and those with serious co-morbid conditions. Patients with extremes in muscle mass or diet. The data above are obtained from the National Kidney Disease Education Program (NKDEP) which additionally recommends that when the eGFR is used in patients with extremes of body mass index for purposes of drug dosing, the eGFR should be multiplied by the estimated BMI. ELECTROLYTE BUN 22 mg/dL 7 - 22 07/19 [facility] ELECTROLYTE Chloride Lvl 104 meq/L 95 - 109 07/19 [facility] ELECTROLYTE Potassium Lvl 3.8 meq/L 3.5 - 5.1 07/19 [facility]2016 [facility] ELECTROLYTE Sodium Lvl 137 meq/L 135 - 145 07/19 [facility] ELECTROLYTE Creatinine 0.91 mg/dL 0.50 - 07/19 [facility] Lvl 1.40 [facility] ELECTROLYTE Glucose Lvl 156 mg/dL 70 - 99 07/19 [facility] HEMATOLOGY WBC 10.8 K/CMM 3.7 - 10.4 07/19 [facility] HEMATOLOGY RBC 3.33 M/CMM 4.20 - 07/19 [place] 5.40 [facility] HEMATOLOGY Hgb 11.6 g/dL 12.0 - 07/19 [place] 16.0 [facility] HEMATOLOGY Hct 34.2 % 36.0 - 07/19 [place] 48.0 [facility] HEMATOLOGY MCHC 34.1 g/dL 32.0 - 07/19 [place] 36.0 [facility] HEMATOLOGY MCV 102.5 fL 80.0 - 07/19 [place] 98.0 [facility] HEMATOLOGY MCH 34.9 pg 27.0 - 07/19 [place] 31.0 [facility] HEMATOLOGY Platelet 142 K/CMM 133 - 450 07/19 [facility] HEMATOLOGY MPV 10.3 fL 7.4 - 10.4 07/19 [facility] HEMATOLOGY RDW 13.6 % 11.5 - 07/19 [facility] [place] 14.5 [facility] HEMATOLOGY Eosinophils 2.8 % 0.0 - 4.0 07/19 [facility] HEMATOLOGY Basophils 0.5 % 0.0 - 1.0 07/19 2016 [facility] HEMATOLOGY Monocytes 6.5 % 2.0 - 12.0 07/19 [facility]2016 [facility] HEMATOLOGY Macrocyte 1+ None Seen 07/19 [facility] (07/19/17 3:48 AM) HEMATOLOGY Segs 83.0 % 45.0 - 07/19 [facility] 75.0 [facility] HEMATOLOGY Lymphocytes 7.2 % 20.0 - 07/19 [facility] 40.0 [facility] HEMATOLOGY Monocytes # 0.7 K/CMM 0.0 - 0.8 07/19 [facility]2016 [facility] HEMATOLOGY Eosinophils # 0.3 K/CMM 0.0 - 0.5 07/19 [facility] [address] [place] [address] HEMATOLOGY Segs-Bands # 9.0 K/CMM 1.5 - 8.1 07/19 [facility] HEMATOLOGY Lymphocytes # 0.8 K/CMM 1.0 - 5.5 07/[address] HEMATOLOGY Basophils # 0.1 K/CMM 0.0 - 0.2 07/[address] PARATHYROID Ca Ion WB 1.00 1.05 - 07/19 [facility] PROFILE mMol/L 1. [facility] PARATHYROID Ca Norm WB 1.02 1.05 - 07/19 [facility] PROFILE mMol/L 1. [facility] Chest 1 v Chest 1 v for EXAM: XR CHEST 1 VIEW 07/18 - [facility] for Placement /2016 - Medical Placement This report was dictated by a Pattern Stamper/Fellow. I have personally reviewed the images as Center DX well as the Resident's interpretation and agree with the findings. DATE: 07/18/2017 2:51 PM CDT Read by: Raven (FELLOW)Leonid MD Resident: Raven (FELLOW)Leonid MD Dictated Date/time: 07/18/17 15:41 Electronically Signed by: Keshav Vieira MD 07/18/17 16:59 FINAL REPORT INDICATION: Line Placement - Chest 1 view for line placement COMPARISON: Semierect AP chest performed 07/07/2017. TECHNIQUE: AP chest FINDINGS: Lines, tubes and hardware: Salcha-Sony catheter has been placed and the tip terminates in the pulmonary trunk. Lungs and pleura: Subsegmental atelectasis is present in the left lung base but appears impro álvaro from the prior exam. Compared to the prior examination there is also resolution of the subsegmental atelectasis in the right lung base. Costophrenic sulci are sharp. Heart and mediastinum: The heart size is normal for technique. The mediastinal contours are normal. Bones: No acute bony abnormality is identified. IMPRESSION: 1. Interval placement of Salcha-Sony catheter with the tip terminating in the pulmonary trunk. BLOOD BANK Antibody Scrn Negative 07/18 [facility] (07/18/17 5:33 AM) [facility] BLOOD BANK ABO/Rh O POS 07/18 [place] RESULTS [facility] HEMATOLOGY PTT 29.2 s 22.9 - 07/18 [place] 35.8 /2016 [facility] HEMATOLOGY PT 13.5 s 12.0 - 07/18 [place] 14.7 /2016 [facility] HEMATOLOGY INR 1.01 0.85 - 07/18 [place] 1. [facility] CARDIAC Total CK 547 unit/L 12 - 191 07/17 [place] ENZYMES /2016 [facility] CARDIAC CK MB Index 1.0 0.0 - 2.5 07/17 [place] EN[facility] /2016 [facility] CARDIAC CK MB 5.3 ng/mL 0.5 - 3.6 07/17 [place] ENZYMES /2016 [facility] CARDIAC Troponin-I 17.30 0.00 - 07/17 Result [facility] ENZYMES ng/mL 0.40 /2016 Comment: [facility] Result(s) called to Rosales Lira at 07/17/2017 04:58 byJw. Read back OK. CARDIAC Troponin-T 3.050 0.000 - 07/17 Result [facility] ENZYMES ng/mL 0.100 /2016 Comment: [facility] Result(s) called to Rosales Lira at 07/17/2017 04:58 byJw. Read back OK. Chest 1view Chest 1view EXAM: XR CHEST 1 VIEW 07/17 - [place] DX - Medical This report was dictated by a Pattern Stamper/Fellow. I have personally reviewed the images as Center well as the Resident's interpretation and agree with the findings. DATE: 07/17/2017 6:56 AM CDT Read by: Cal Lowe MD Resident: Cal Lowe MD Dictated Date/time: 07/17/17 09:07 Electronically Signed by: Guilherme Hogue MD 07/17/17 11:09 FINAL REPORT INDICATION: - compare to previous COMPARISON: 07/16/2017 TECHNIQUE: AP chest FINDINGS: Lines, tubes and hardware: None. Lungs and pleura: Left retrocardiac opacity containing air bronchograms is slightly improved from prior exam. Bibasilar subsegmental atelectasis is present. Small right pleural effusion is unchanged. Pulmonary vascularity is normal. Heart and mediastinum: The cardiomediastinal silhouette is stable Bones: Unchanged IMPRESSION: 1. Slight interval improvement in left retrocardiac opacity which may be due to atelectasis and/or pneumonia. 2. Bibasilar subsegmental atelectasis. 3. Stable small right pleural effusion. CHEM PANEL Procalcitonin 0.06 ng/mL 0.00 - 07/16 [facility] Lvl 0.10 [facility] Chest CTA Chest CTA EXAM: CTA CHEST WITH CONTRAST 07/16 - [facility] /2016 [facility] This report was dictated by a Pattern Stamper/Fellow. I have personally reviewed the images as Center well as the Resident's interpretation and agree with the findings. DATE: 07/16/2017 10:22 AM CDT Read by: Cal Lowe MD Resident: Cal Lowe MD Dictated Date/time: 07/16/17 13:44 Electronically Signed by: Keshav Vieira MD 07/17/17 09:24 FINAL REPORT INDICATION: Shortness of Breath - S/P RI COMPARISON: None available TECHNIQUE: Volumetric CT acquisition of the chest, during pulmonary arterial phase, after intravenous contrast. Axial, sagittal, coronal, and oblique MIP reconstructions are created at the acquisition workstation. IV Contrast: 85 mL Omnipaque 350 DLP: 542.1 mGy-cm FINDINGS: Lines and tubes: None. Lower neck: Unremarkable. Heart and Mediastinum: Cardiothoracic ratio measures 12.2/24.5. Measurements and appearance of the thoracic aorta are normal. At the same level where the ascending aorta measures 3 cm the pulmonary trun k measures 2.9 cm. Left anterior descending coronary artery stent present. Focal hypoattenuation of the left ventricular apex consistent with prior infarction. Mild increased attenuation surrounding the ascending aorta and arch is nonspecific and likely represent mediastinal edema. There is no pulmonary embolus. Pleura: Trace bilateral pleural effusion. Lymph Nodes: There is no hilar, mediastinal, axillary or internal mammary lymphadenopathy. Lungs: Bibasilar enhancing consolidation with posterior inferior displacement of the horizontal and left major fissures. Scattered subsegmental atelectasis in the right middle lobe and left upper lobe. Trachea: Unremarkable Upper abdomen: Incompletely characterized hepatic segment VIII lesion ( series 3, image 109) measures 1.6 x 1.5 cm. Liver is smooth in contour. No arterial enhancing mass lesion identified. Remainder of the upper abdomen is unremarkable. Bones and soft tissues: No acute fracture or malalignment. No suspicious osseous lesion. Diffuse decreased bone mineral density. No soft tissue abnormality. IMPRESSION: 1. No pulmonary embolism identified. 2. Abundant atelectasis in both lower lobes. Scattered subsegmental atelectasis in the right middle and left lower lobes. 3. Incompletely characterized hypodense lesion in hepatic segment VIII lesion likely of benign etiology, however ultrasound can be obtained for further characterization. 4. Osteopenia. HEMATOLOGY Large Plt Slight 07/16 [facility] /[address] [place] [address] HEMATOLOGY INR 1.07 0.85 - 07/16 [facility] 1.17 [facility] HEMATOLOGY PTT 29.6 s 22.9 - 07/16 [facility] 35.8 [facility] HEMATOLOGY PT 14.1 s 12.0 - 07/16 [facility] 14.7 [facility] Chest 1view Chest 1view EXAM: XR CHEST 1 VIEW 07/16 - [facility] DX DX /2016 - [facility] DATE: 07/16/2017 3:00 AM CDT Read by: Litzy Hewitt MD Dictated Date/time: 07/16/17 08:54 Electronically Signed by: Litzy Hewitt MD 07/16/17 10:00 FINAL REPORT INDICATION: am chest - am chest. FINDINGS: Comparison is made to yesterday. The cardiomediastinal silhouette is stable. A left retrocardiac opacity containing air bronchograms could be due to atelectasis and/or pneumonia. There is subsegmental atelectasis in the right lower lobe. A small right pleural effusion is identified. IMPRESSION: No significant change. CARDIAC proBNP 6141 pg/mL 0 - 125 07/15 [place] [facility] /2016 [facility] CARDIAC BNP 144 pg/mL <=100 07/15 [place] [facility] pg/mL /2016 [facility] BLOOD BANK Antibody Scrn Negative 07/15 [place] RESULTS Medical (07/15/17 12:42 PM) [facility] BLOOD BANK ABO/Rh O POS 07/15 [place] RESULTS [facility] Chest 1view Chest 1view EXAM: XR CHEST 1 VIEW 07/15 - [place] DX DX - [facility] DATE: 07/15/2017 Read by: Marie Wells MD Dictated Date/time: 07/15/17 10:40 Electronically Signed by: Marie Wells MD 07/15/17 10:41 FINAL REPORT INDICATION: HYPOXEMIA - N/A . Comparison is made with yesterday FINDINGS: Cardiomediastinal silhouette is unchanged. There is platelike atelectasis at the right lung base. There is an opacity at the left lung base obscuring the left hemidiaphragm and the silhouette of the descending thoracic aorta. This opacity may represent left pleural effusion with or without left lower lobe consolidation or atelectasis.. The upper lungs are clear. No pneumothorax is visualized however a supine or semierect radiograph is suboptimal for that determination. An erect film of the chest is necessary in order to exclude small pneumothoraces.. There are small layering bilateral pleural effusions IMPRESSION: No significant interval change when compared to prior radiograph. CARDIAC Troponin-I >40 ng/mL 0.00 - 07/15 Result [facility] ENZYMES 0.40 /2016 Comment: [facility] Result(s) called to Cirilo Merino at 07/15/2017 02:31 by AC. Read back OK. CARDIAC BNP 280 pg/mL <=100 07/15 [place] ENZYMES pg/mL /2016 [facility] SPECIAL Hgb A1C 11.1 % <=5.6 % 07/15 [place] CHEMISTRY /2016 [facility] Chest 1view Chest 1view EXAM: XR CHEST 1 VIEW 07/14 - [place] DX DX - [facility] This report was dictated by a Pattern Stamper/Fellow. I have personally reviewed the images as Center well as the Resident's interpretation and agree with the findings. DATE: 07/14/2017 11:09 PM CDT Read by: Sheng Estrada (Fellow) Resident: Sheng Estrada (Fellow) Dictated Date/time: 07/15/17 08:45 Electronically Signed by: Keshav Vieira MD 07/15/17 08:55 FINAL REPORT INDICATION: resp distress - new onset hypoxia COMPARISON: None. TECHNIQUE: AP chest FINDINGS: Lines, tubes and hardware: None. Lungs and pleura: There is mild bibasilar opacity left greater than right with which could represent atelectasis and/or consolidation. Possible trace pleural effusions. No definite pneumothorax is seen within the limitations of this semierect film. Heart and mediastinum: The cardiomediastinal silhouette is normal in size. The mediastinal contours are normal. Bones: No acute bony abnormality is identified. IMPRESSION: 1. Bibasilar and left retrocardiac opacity, possibly representing atelectasis and/or consolidation. BACTERIAL - MRSA by PCR Negative 07/14 [facility] (07/14/17 1:44 PM) [place] Vital Signs Vital Sign Value Date Comments Source Systolic (mm Hg) 93 07/23/[address] [facility] Diastolic (mm Hg) 64 07/23/[address] [facility] Temperature Oral (F) 97.8 F 07/23/[address] [facility] Respitory Rate 24 07/23/[address] [facility] Systolic (mm Hg) 95 07/23/[address] [facility] Diastolic (mm Hg) 65 07/23/[address] [facility] Respitory Rate 19 07/23/[address] [facility] Systolic (mm Hg) 90 07/23/[address] [facility] Diastolic (mm Hg) 60 07/23/[address] [facility] Respitory Rate 10 07/23/[address] [facility] Temperature Oral (F) 97.9 F 07/23/[address] [facility] Height 175.26 cm 07/23/[address] [facility] Weight 76.7 07/23/[address] [facility] BMI Calculated 24.97 07/23/[address] [facility] Temperature Oral (F) 96.1 F 07/21/[address] [facility] Systolic (mm Hg) 80 07/21/[address] [facility] Diastolic (mm Hg) 56 07/21/[address] [facility] Systolic (mm Hg) 94 07/21/[address] [facility] Diastolic (mm Hg) 60 07/21/[address] [facility] Systolic (mm Hg) 88 07/21/[address] [facility] Diastolic (mm Hg) 66 07/21/[address] [facility] Respitory Rate 16 07/21/[address] [facility] Temperature Oral (F) 97.8 F 07/21/[address] [facility] Temperature Oral (F) 97.9 F 07/21/[address] [facility] Respitory Rate 15 07/20/[address] [facility] Respitory Rate 16 07/20/[address] [facility] BMI Calculated 28.03 07/14/[address] [facility] Height 175.26 cm 07/14/[address] [facility] Weight 86.108 07/14/[address] [facility] Encounters Location Location Encounter Encounter Reason Attending ADM DC Status Source Details Type Number For Provider Date Date [facility] [id number] 07[facility]14 07[facility]21 [facility]2016 [facility] [id number] Veronica Wise 07/23 07/23 [facility] /2016 [facility] Procedures Procedure Code Date Perfomer Comments Source PCI - Percutaneous [id number] [facility] coronary [facility] intervention [place]
--- NOTE | 2019-05-22 21:00 | ER ---
Nurse's Notes [facility] Name: Hue Hernandez Age: 58 yrs Sex: Female : 1960 Arrival Date: 05/22/2019 Time: 19:13 Bed 24 Private MD: Armando Rodriguez Diagnosis: Fracture right patella. Contusion left shoulder. S/P Fall Presentation: 05/22 19:37 Presenting complaint: Patient states: Reports stumble and fall from standing height aj this AM at 0730 this AM. Denies hitting head. Reports pain to right knee and left shoulder. Pain is worse when standing. Care prior to arrival: None. Mechanism of Injury: Fall from standing position. Trauma event details: Injury occurred in the [facility], Injury occurred: at home. Injury occurred: May 22, 2019 Injury occurred at: 07:30. 19:37 Acuity: TAYLOR 4 aj 19:37 Method Of Arrival: Wheelchair aj 19:40 Transition of care: patient was not received from another setting of care. Onset of aj symptoms was May 22, 2019. Risk Assessment: Do you want to hurt yourself or someone else? Patient reports no desire to harm self or others. Initial Sepsis Screen: Does the patient meet any 2 criteria? No. Patient's initial sepsis screen is negative. Does the patient have a suspected source of infection? No. Patient's initial sepsis screen is negative. Trauma Activation: Not Applicable Physician: ED Physician; Name: ; Notified At: ; Arrived At: Physician: General Surgeon; Name: ; Notified At: ; Arrived At: Physician: Radiology; Name: ; Notified At: ; Arrived At: Physician: Respiratory; Name: ; Notified At: ; Arrived At: Physician: Lab; Name: ; Notified At: ; Arrived At: Historical: - Allergies: 19:40 Niacin; aj - PMHx: 20:00 Diabetes - IDDM; High Cholesterol; Myocardial infarction; ca1 - Immunization history: Last tetanus immunization: < 5 years ago. - Social history:: Smoking status: Patient/guardian denies using tobacco. - Ebola Screening: : Patient negative for fever greater than or equal to 101.5 degrees Fahrenheit, and additional compatible Ebola Virus Disease symptoms Patient denies exposure to infectious person Patient denies travel to an Ebola-affected area in the 21 days before illness onset. Screenin:45 Abuse screen: Denies threats or abuse. Denies injuries from another. Nutritional ca1 screening: No deficits noted. Tuberculosis screening: No symptoms or risk factors identified. Fall Risk Fall in past 12 months (25 points). Primary Survey: 19:37 NO uncontrolled hemorrhage observed. Breathing/Chest: Respiratory pattern: regular, aj Respiratory effort: spontaneous, unlabored. Circulation: Skin color: pink. Disability Alert. Exposure/Environment:. 20:30 Reassessment Airway Airway Patent Breathing/Chest Respiratory pattern Regular ca1 Respiratory effort Spontaneous Breath sounds Clear Chest inspection Symmetrical Circulation Heart rhythm Sinus rhythm Heart tones Present Pulses Dopplerable Color [place] Temperature Warm Disability Alert. Assessment: 19:37 General: Appears in no apparent distress. comfortable, Behavior is calm, cooperative, aj appropriate for age. Pain: Complains of pain in right knee. Neuro: Level of Consciousness is awake, alert, obeys commands, Oriented to person, place, time, situation, Appropriate for age. Respiratory: Airway is patent Respiratory effort is even, unlabored, Respiratory pattern is regular, symmetrical. Derm: Skin is intact, is healthy with good turgor, Skin is pink, warm \T\ dry. normal. 20:30 Reassessment: Patient appears in no apparent distress at this time. Patient and/or ca1 family updated on plan of care and expected duration. Pain level reassessed. Patient is alert, oriented x 3, equal unlabored respirations, skin warm/dry/pink. Knee Immobilizer applied. Pt tolerated well. 21:17 Reassessment: Patient appears in no apparent distress at this time. Patient is alert, ca1 oriented x 3, equal unlabored respirations, skin warm/dry/pink. Awaiting Xray disc per Dr. Seaman's instructions to take with pt to the orthopedic doctor. Vital Signs: 19:37 BP 104 / 69; Pulse 100; Resp 20; Temp 97.7; Pulse Ox 96% on R/A; Weight 77.11 kg; aj Height 5 ft. 9 in. (175.26 cm); 20:40 BP 111 / 71; Pulse 95; Resp 16 S; Temp 98(O); Pulse Ox 97% on R/A; ca1 19:37 Body Mass Index 25.10 (77.11 kg, 175.26 cm) aj Gillett Coma Score: 19:37 Eye Response: spontaneous(4). Verbal Response: oriented(5). Motor Response: obeys aj commands(6). Total: 15. Trauma Score (Adult): 19:37 Eye Response: spontaneous(1); Verbal Response: oriented(1); Motor Response: obeys aj commands(2); Systolic BP: > 89 mm Hg(4); Respiratory Rate: 10 to 29 per min(4); Gillett Score: 15; Trauma Score: 12 ED Course: 19:13 Patient arrived in ED. am2 19:16 Armando Rodriguez MD is Private Physician. am2 19:37 Patient has correct armband on for positive identification. aj 19:37 Patient maintains SpO2 saturation greater than 95% on room air. aj 19:38 Triage completed. aj 19:40 Arm band placed on left wrist. Patient placed in an exam room. aj 19:42 Sha Seaman MD is Attending Physician. pkl 19:45 Pulse ox on. NIBP on. ca1 19:45 No provider procedures requiring assistance completed. Patient did not have IV access ca1 during this emergency room visit. 20:12 XRAY Knee RIGHT 3 view In Process Unspecified. EDMS 20:12 Shoulder Left (2 View) XRAY In Process Unspecified. EDMS 20:27 Hanane Jiménez RN is Primary Nurse. ca1 20:30 Knee immobilizer applied on right knee. ca1 20:30 Thermoregulation: warm blanket given to patient. ca1 20:58 Ousmane Jaimes MD is Referral Physician. pkl Administered Medications: No medications were administered Output: 20:30 Urine: 190ml (Voided); Total: 190ml. ca1 Outcome: 21:00 Discharge ordered by . pkl 21:10 Patient's length of stay was not longer than 2 hours. ca1 21:22 Discharged to home via wheelchair. ca1 21:22 Condition: stable 21:22 Discharge instructions given to patient, Instructed on discharge instructions, follow up and referral plans. medication usage, Demonstrated understanding of instructions, follow-up care, medications, Prescriptions given X 1. 21:23 Patient left the ED. ca1 Signatures: Dispatcher [employer] EDMS Rashmi Sauceda RN RN aj Lam, Pin, MD MD pkRashmi Rasheed am2 Hanane Jiménez RN RN ca1 Corrections: (The following items were deleted from the chart) 21:17 20:30 Reassessment: Patient appears in no apparent distress at this time. Patient is ca1 alert, oriented x 3, equal unlabored respirations, skin warm/dry/pink. Awaiting Xray disc per Dr. Seaman's instructions to take with pt to the orthopedic doctor ca1
--- NOTE | 2019-05-22 21:00 | EDPHYS ---
Physician Documentation [facility] Name: Hue Hernandez Age: 58 yrs Sex: Female : 1960 Arrival Date: 05/22/2019 Time: 19:13 Bed 24 Private MD: Armando Rodriguez ED Physician Sha Seaman HPI: 05/22 20:26 This 58 yrs old Female presents to ER via Wheelchair with complaints of Knee pkl Pain, Fall Injury. 20:26 Details of fall: The patient fell from an upright position, while standing. Onset: The pkl symptoms/episode began/occurred this morning. Associated injuries: The patient sustained right knee, left shoulder, painful injury. Historical: - Allergies: 19:40 Niacin; aj - PMHx: 20:00 Diabetes - IDDM; High Cholesterol; Myocardial infarction; ca1 - Immunization history: Last tetanus immunization: < 5 years ago. - Social history:: Smoking status: Patient/guardian denies using tobacco. - Ebola Screening: : Patient negative for fever greater than or equal to 101.5 degrees Fahrenheit, and additional compatible Ebola Virus Disease symptoms Patient denies exposure to infectious person Patient denies travel to an Ebola-affected area in the 21 days before illness onset. ROS: 20:26 Eyes: Negative for injury, pain, redness, and discharge, ENT: Negative for injury, pkl pain, and discharge, Neck: Negative for injury, pain, and swelling, Cardiovascular: Negative for chest pain, palpitations, and edema, Respiratory: Negative for shortness of breath, cough, wheezing, and pleuritic chest pain, Abdomen/GI: Negative for abdominal pain, nausea, vomiting, diarrhea, and constipation, Back: Negative for injury and pain, : Negative for injury, bleeding, discharge, and swelling, Skin: Negative for injury, rash, and discoloration, Neuro: Negative for headache, weakness, numbness, tingling, and seizure. 20:26 MS/extremity: Positive for injury or acute deformity, pain, of the right knee and left shoulder. Exam: 20:37 Head/Face: Normocephalic, atraumatic. Eyes: Pupils equal round and reactive to light, pkl extra-ocular motions intact. Lids and lashes normal. Conjunctiva and sclera are non-icteric and not injected. Cornea within normal limits. Periorbital areas with no swelling, redness, or edema. ENT: Nares patent. No nasal discharge, no septal abnormalities noted. Tympanic membranes are normal and external auditory canals are clear. Oropharynx with no redness, swelling, or masses, exudates, or evidence of obstruction, uvula midline. Mucous membranes moist. Neck: Trachea midline, no thyromegaly or masses palpated, and no cervical lymphadenopathy. Supple, full range of motion without nuchal rigidity, or vertebral point tenderness. No Meningismus. Chest/axilla: Normal chest wall appearance and motion. Nontender with no deformity. No lesions are appreciated. Cardiovascular: Regular rate and rhythm with a normal S1 and S2. No gallops, murmurs, or rubs. Normal PMI, no JVD. No pulse deficits. Respiratory: Lungs have equal breath sounds bilaterally, clear to auscultation and percussion. No rales, rhonchi or wheezes noted. No increased work of breathing, no retractions or nasal flaring. Abdomen/GI: Soft, non-tender, with normal bowel sounds. No distension or tympany. No guarding or rebound. No evidence of tenderness throughout. Back: No spinal tenderness. No costovertebral tenderness. Full range of motion. Skin: Warm, dry with normal turgor. Normal color with no rashes, no lesions, and no evidence of cellulitis. 20:37 Musculoskeletal/extremity: Extremities: grossly normal except: noted in the right knee: pain, swelling, tenderness, noted in the left shoulder: pain. Vital Signs: 19:37 BP 104 / 69; Pulse 100; Resp 20; Temp 97.7; Pulse Ox 96% on R/A; Weight 77.11 kg; aj Height 5 ft. 9 in. (175.26 cm); 20:40 BP 111 / 71; Pulse 95; Resp 16 S; Temp 98(O); Pulse Ox 97% on R/A; ca1 19:37 Body Mass Index 25.10 (77.11 kg, 175.26 cm) aj Karena Coma Score: 19:37 Eye Response: spontaneous(4). Verbal Response: oriented(5). Motor Response: obeys aj commands(6). Total: 15. Trauma Score (Adult): 19:37 Eye Response: spontaneous(1); Verbal Response: oriented(1); Motor Response: obeys aj commands(2); Systolic BP: > 89 mm Hg(4); Respiratory Rate: 10 to 29 per min(4); Karena Score: 15; Trauma Score: 12 MDM: 19:42 Patient medically screened. pkl 20:37 Data reviewed: vital signs, nurses notes, radiologic studies, plain films. pk 05/22 19:41 Order name: XRAY Knee RIGHT 3 view 05/22 19:41 Order name: Shoulder Left (2 View) XRAY 05/22 20:26 Order name: Knee Immobilizer; Complete Time: 21:00 pk Administered Medications: No medications were administered Disposition: 05/22/19 21:00 Discharged to Home. Impression: Fracture right patella. Contusion left shoulder. S/P Fall. - Condition is Stable. - Prescriptions for Tylenol- Codeine #3 300-30 mg Oral Tablet - take 1 tablet by ORAL route every 6 hours As needed; 30 tablet. - Medication Reconciliation Form, Thank You Letter, Antibiotic Education, Prescription Opioid Use form. - Follow up: Ousmane Jaimes MD; When: 2 - 3 days; Reason: Re-evaluation by your physician. - Problem is new. - Symptoms are unchanged. Signatures: Dispatcher [employer] EDMS Rashmi Sauceda RN RN aj Lam, Pin, MD MD Hanane Chavis RN RN ca1 Corrections: (The following items were deleted from the chart) 21:23 21:00 05/22/2019 21:00 Discharged to Home. Impression: Fracture right patella. ca1 Contusion left shoulder. S/P Fall. Condition is Stable. Forms are Medication Reconciliation Form, Thank You Letter, Antibiotic Education, Prescription Opioid Use. Follow up: Ousmane Jaimes; When: 2 - 3 days; Reason: Re-evaluation by your physician. Problem is new. Symptoms are unchanged. pkl
[2019-05-22 22:30] VITALS: BP 111/71; TEMP 98; O2SAT 97
--- NOTE | 2019-05-23 08:06 | RAD REPORT ---
EXAM DESCRIPTION: RAD - Shoulder Left 2 View - 05/22/2019 8:12 pm CLINICAL HISTORY: Fall, shoulder pain COMPARISON: None. TECHNIQUE: Internal and external rotation views of the left shoulder were obtained. FINDINGS: There is no fracture or dislocation. No acute AC joint finding. Minimal degenerative rick e along the undersurface of the acromion. No acute or suspicious findings. IMPRESSION: Negative two-view left shoulder examination for acute or significant finding.
--- NOTE | 2019-05-23 08:12 | RAD REPORT ---
EXAM DESCRIPTION: RAD - Knee Right 3 View - 05/22/2019 8:15 pm CLINICAL HISTORY: Trip and fall, right knee pain COMPARISON: None. FINDINGS: Transverse fracture is present through the distal third of the patella. Approximately 1 mi llimeter of distraction is present. Femur, tibia and fibula are intact.Small joint effusion is presen t. Patella tendon appears to be intact as well. No joint space narrowing. No foreign body or other so ft tissue abnormality. IMPRESSION: Transverse fracture of the lower patella with no significant distraction.
== END 2019-05-22 21:23 | disposition home or self-care (01) ==
LOC: ER 19:09
DX: S82.001A Unspecified fracture of right patella, initial encounter for closed fracture (principal); S40.012A Contusion of left shoulder, initial encounter; W19.XXXA Unspecified fall, initial encounter; Y93.89 Activity, other specified; Y92.9 Unspecified place or not applicable; Z88.8 Allergy status to other drugs, medicaments and biological substances
CPT/HCPCS: 99284

== ENCOUNTER 2022-03-11 18:22 | Observation (INO) | payer BC, OTHER ==
--- OUTSIDE RECORDS SUMMARY | 2022-03-11 18:27 | XMS REPORT | Continuity of Care Document ---
:[address] [facility] t Address [address] [place] [address] Care Team Providers Name Role Phone Unknown Primary Care Physician Unavailable Laine RODARTE Attending Clinician Payers Payer Name Policy Type Policy Number Effective Date Expiration Date S diana OPEN ACCESS [employer]ET[employer] [id number] 2011 00:00:00 [employer] EPO Problems Condition Condition Condition Status Onset Resolution Last Treating Co mments Source Name Details Category Date Date Treatment Clinician Date Encounter Encounter Disease Active [facility] for for 17 Health administra administra 00:00: tion of tion of 00 COVID-19 COVID-19 vaccine vaccine CAD CAD Disease Active 2019-12 [facility] (coronary (coronary 0-13 Heal th artery artery 00:00: disease) disease) 00 Cardiomyop Cardiomyop Disease Active 2019-12 U T athy athy 0-13 Health 00:00: 00 Ejection Ejection Disease Active 2019-12 [facility] fraction < fraction < 0-13 He alth 50% 50% 00:00: 00 Hyperlipid Hyperlipid Disease Active 2019-12 U T emia emia 0-13 Health 00:00: 00 Ischemic Ischemic Disease Active 2019-12 [facility] cardiomyop cardiomyop 0-13 He alth athy athy 00:00: 00 On statin On statin Disease Active 2018-12 [facility] therapy therapy 0-22 Health 00:00: 00 Diabetes Diabetes Disease Active [facility] mellitus mellitus 3-05 Health 00:00: 00 Allergies, Adverse Reactions, Alerts Allergy Allergy Status Severity Reaction(s) Onset Inactive Treating Comm ents Source Name Type Date Date Clinician Niacin Allergy Active 2020-12 [facility] to 2 Health substanc 00:00: e 00 Social History Social Habit Start Date Stop Date Quantity Comments Source Exposure to Not sure [facility] SARS-CoV-2 (event) Tobacco use and 2021-11-14 2021-11-14 Smokeless tobacco [place] [facility] exposure 00:00:00 00:00:00 non-user Alcohol intake 2021-11-14 2021-11-14 Ex-drinker [facility] 00:00:00 00:00:00 (finding) Sex Ass[birth year] At [birth year] [facility] 00:00:00 00:00:00 Smoking Status Start Date Stop Date Source Never smoked tobacco [facility] Medications Ordered Filled Start Stop Current Ordering Indication Dosage Frequency Signature Comments Components Source Medication Medication Date Date Medication? Clinician (SIG) Name Name Aspirin 81 2020-12 Yes 81mg QD Take 81 mg U T MG capsule 2-15 by mouth 1 Hea lth 15:23: (one) time 05 each day. Insulin 2020-12 Yes [facility] Lispro, 0.5 2-15 Health Unit Dial, 15:23: (HumaLOG 05 Jose KwikPen) 100 UNIT/ML solution pen-injecto r clopidogrel 2020-12- No [id number] 75mg QD Take 1 [facility] (Plavix) 75 2-15 03-16 tablet (75 H ealth MG tablet 00:00: 04:59 mg total) 00 :00 by mouth 1 (one) time each day. rosuvastati 2020-12- No [id number] 40mg Take 1 UT n (Crestor) 2-15 03-16 tablet (40 H ealth 40 MG 00:00: 04:59 mg total) tablet 00 :00 by mouth every night. carvedilol 2020-12 Yes 3.125mg Take 3.125 UT (Coreg) 0-10 mg by Health 3.125 MG 00:00: mouth tablet 00 every night. Basaglar 2020-12 Yes 50U QD Inject 50 [facility] KwikPen 100 0-10 Units Health UNIT/ML 00:00: under the injection 00 skin 1 (one) time each day. Synthroid Yes TAKE 1 UT 200 MCG 9-29 TABLET BY Health tablet 00:00: MOUTH 00 DAILY 30 MINUTES BEFORE BREAKFAST NovoLOG Yes INJECT 8 UT FLEXPEN 100 8-31 UNITS Health UNIT/ML 00:00: UNDER THE injection 00 SKIN THREE TIMES DAILY WITH MEALS levothyroxi Yes TAKE 1 UT ne 8-04 TABLET BY [facility] (Synthroid, 00:00: MOUTH Levoxyl) 50 00 EVERY DAY. MCG tablet TAKE 30 MINUTES BEFORE BREAKFAST. clopidogrel 75mg QD Take 75 mg UT (Plavix) 75 8-04 15 by mouth 1 H ealth MG tablet 00:00: 00:00 (one) time 00 :00 each day. Jardiance Yes TAKE 1 UT 10 MG 6-22 TABLET BY [facility] 00:00: MOUTH 00 DAILY IN THE MORNING WITH BREAKFAST rosuvastati 40mg Take 40 mg UT n (Crestor) 311-14 by mouth Hea lth 40 MG 00:00: 00:00 every tablet 00 :00 night. Immunizations Ordered Immunization Filled Immunization Date Status Commen ts Source Name Name COVID-19 Pfizer & 2021-02-12 Completed [facility] Over Vaccination 00:00:00 COVID-19 Pfizer & 2021-01-22 Completed [facility] Vaccination 00:00:00 Vital Signs Vital Name Observation Time Observation Value Comments Source Systolic blood pressure 2021-11-14 21:15:00 96 mm[Hg] [facility] Diastolic blood pressure 2021-11-14 21:15:00 61 mm[Hg] [facility] Heart rate 2021-11-14 21:15:00 103 /min [facility] Body temperature 2021-11-14 21:15:00 36.83 [place] [facility] Body height 2021-11-14 21:15:00 170.2 cm [facility] Body weight 2021-11-14 21:15:00 82.555 kg [facility] BMI 2021-11-14 21:15:00 28.51 [facility] Procedure Date / Time Performed Performing Clinician [facility] e ECG 12-LEAD 2021-11-14 21:50:00 Bayron Jang [facility] Encounters Start End Encounter Admission Attending Care Care Encounter Source Date/Time Date/Time Type Type Clinicians Facility Department ID 2021-11-[address] [facility] [id number] [place] 02:23:43 Health 2021-11-[address] [facility] [id number] [place] 12:00:09 [facility] 2021-11-14 2021-11-14 Office Laine DARVIN [id number] [place] 15:00:00 15:48:08 [id number] [id number] SPECIALTY [id number] CLINIC 1 Results This patient has no known results.
[2022-03-11] MEDS ORDERED: ASPIRIN 81 MG CHEWABLE TABLET ONE (20:24)
--- NOTE | 2022-03-11 20:28 | RAD REPORT ---
EXAM DESCRIPTION: RAD - Chest Single View - 03/11/2022 8:18 pm CLINICAL HISTORY: CHEST PAIN Chest pain. COMPARISON: Chest Pa And Lat (2 Views) dated 11/18/2018; Chest Single View dated 07/23/2017; CHEST SI NGLE VIEW dated 01/25/2013; CHEST SINGLE VIEW dated 07/03/2009 FINDINGS: Portable technique limits examination quality. The lungs are grossly clear. The heart is normal in size. No displaced fractures. IMPRESSION: No acute intrathoracic process suspected.
[2022-03-11 20:47] LABS: Absolute Lymphocytes (CBC) 2.4 K/uL (0.7-4.9); Hematocrit 44.6 % (36.0-45.0); Lymphocytes % 37.9 % (15.3-44.8); MPV 9.6 fL (7.6-11.3); RBC Red Blood Cell Count 4.64 M/uL (3.86-4.86)
[2022-03-11 20:58] LABS: Protime INR 0.94
[2022-03-11 21:01] LABS: ALT/SGPT 33 U/L (12-78); AST/SGOT 7 U/L (15-37); Albumin 3.5 g/dL (3.4-5.0); Alkaline Phosphatase 85 U/L (45-117); BUN Blood Urea Nitrogen 20 mg/dL (7-18); Bicarbonate 30 mmol/L (21-32); Bilirubin Total 0.2 mg/dL (0.2-1.0); Glucose Level 100 mg/dL (74-106); Magnesium 2.3 mg/dL (1.8-2.4); NT PRO-BNP 117 pg/mL (<125); Potassium 4.1 mmol/L (3.5-5.1); Protein, Total 7.4 g/dL (6.4-8.2); Sodium Level 141 mmol/L (136-145)
[2022-03-11 21:27] LABS: Bilirubin Direct < 0.1 mg/dL (0-0.2)
--- NOTE | 2022-03-11 21:59 | EDPHYS ---
Physician Documentation [facility] Name: Hue Hernandez Age: 61 yrs Sex: Female : 1960 Arrival Date: 03/11/2022 Time: 18:29 Bed 16 Private MD: Armando Rodriguez ED Physician Dejuan Pool HPI: 03/11 20:09 This 61 yrs old Female presents to ER via Ambulatory with complaints of Chest Pressure. pm1 20:09 The patient or guardian reports chest pain that is located primarily in the mid-sternal pm1 area. Onset: today, at 17:00. The pain does not radiate. Associated signs and symptoms: Pertinent positives: right axilla pain, Pertinent negatives: abdominal pain, cough, dizziness, headache, nausea, palpitations, shortness of breath, vomiting. The chest pain is described as a pressure. Duration: The patient or guardian reports a single episode, that is now resolved, that lasted 1.5 hour(s). Modifying factors: The symptoms are alleviated by ASA, 81mg X2. the symptoms are aggravated by nothing. Severity of pain: At its worst the pain was a 6 / 10 in the emergency department the pain has resolved is a 0 / 10. The patient has experienced a previous episode, many years ago, [place] in 2017 treated with stents. The patient has been recently seen by a physician: the patient's primary care provider, Dr. Rodriguez. Historical: - Allergies: 18:33 Niacin; jd3 - PMHx: 18:33 Diabetes - IDDM; High Cholesterol; Myocardial infarction; jd3 - PSHx: 18:33 cardiac stents; jd3 - Immunization history:: Adult Immunizations up to date, Client reports receiving the 2nd dose of the Covid vaccine, Flu vaccine is up to date. - Social history:: Smoking status: Patient denies any tobacco usage or history of. ROS: 20:09 Constitutional: Negative for fever, chills, and weight loss. pm1 20:09 Respiratory: Negative for shortness of breath, cough, wheezing, and pleuritic chest pain, Abdomen/GI: Negative for abdominal pain, nausea, vomiting, diarrhea, and constipation, Back: Negative for injury and pain, MS/Extremity: Negative for injury and deformity, Skin: Negative for injury, rash, and discoloration, Neuro: Negative for headache, weakness, numbness, tingling, and seizure. 20:09 Cardiovascular: Positive for chest pain, Negative for edema, orthopnea, palpitations. 20:09 All other systems are negative. Exam: 20:09 Constitutional: This is a well developed, well nourished patient who is awake, alert, pm1 and in no acute distress. Head/Face: Normocephalic, atraumatic. 20:09 Back: No spinal tenderness. No costovertebral tenderness. Full range of motion. Skin: Warm, dry with normal turgor. Normal color with no rashes, no lesions, and no evidence of cellulitis. MS/ Extremity: Pulses equal, no cyanosis. Neurovascular intact. Full, normal range of motion. 20:09 Eyes: Exam is negative for acute changes, Extraocular movements: no acute changes, Conjunctiva: no acute changes. 20:09 ENT: Exam is negative for acute changes, Mouth: no acute changes, Lips: normal, moist, Oral mucosa: normal, pink and intact, moist. 20:09 Cardiovascular: Exam negative for acute changes, Rate: normal, Rhythm: regular, Pulses: no pulse deficits are appreciated, Heart sounds: normal, Edema: is not appreciated. 20:09 Respiratory: Exam negative for acute changes, respiratory distress, shortness of breath, Breath sounds: are clear throughout. 20:09 Abdomen/GI: Inspection: abdomen appears normal, Palpation: abdomen is soft and non-tender, in all quadrants. 20:09 Neuro: Exam negative for acute changes, Orientation: is normal, Mentation: is normal, Motor: is normal, moves all fours. Vital Signs: 18:34 BP 131 / 87; Pulse 80; Resp 18 S; Temp 98.2(TE); Pulse Ox 98% on R/A; Weight 81.65 kg jd3 (R); Height 5 ft. 10 in. (177.80 cm) (R); Pain 7/10; 22:24 BP 125 / 80; Pulse 74; Resp 20 S; Pulse Ox 96% on R/A; as6 18:34 Body Mass Index 25.83 (81.65 kg, 177.80 cm) jd3 MDM: 20:04 Patient medically screened. 20:13 Data reviewed: vital signs. Data interpreted: Pulse oximetry: on room air is 98 %. pm1 Interpretation: normal. 21:49 Physician consultation: Armando Rodriguez MD was called at 21:49, was contacted at 21:49, pm1 regarding admission, patient's condition, and will see patient tomorrow, Wants Serial troponin x 3 and sliding scale insulin and nitro SL PRN and will manage the rest of the medications tomorrow. 03/11 20:09 Order name: Basic Metabolic Panel; Complete Time: 21:43 pm1 03/11 20:09 Order name: CBC with Diff; Complete Time: 21:09 pm1 03/11 20:09 Order name: LFT's; Complete Time: 21:43 pm1 03/11 20:09 Order name: Magnesium; Complete Time: 21:43 pm1 03/11 20:09 Order name: NT PRO-BNP; Complete Time: 21:43 pm1 03/11 20:09 Order name: PT-INR; Complete Time: 21:09 pm1 03/11 18:44 Order name: EKG; Complete Time: 18:44 cp 03/11 18:44 Order name: EKG - Nurse/Tech; Complete Time: 20:30 cp 03/11 20:09 Order name: Troponin HS; Complete Time: 21:43 pm1 03/11 20:09 Order name: XRAY Chest (1 view); Complete Time: 20:35 pm1 03/11 20:09 Order name: Cardiac monitoring; Complete Time: 20:29 pm1 03/11 20:09 Order name: IV Saline Lock; Complete Time: 20:27 pm1 03/11 22:00 Order name: COVID-19/FLU A+B (Document "Date of Onset" if Symptomatic); Complete Time: as6 23:11 03/11 20:09 Order name: Labs collected and sent; Complete Time: 20:27 pm1 03/11 20:09 Order name: O2 Per Protocol; Complete Time: 20:27 pm1 03/11 20:09 Order name: O2 Sat Monitoring; Complete Time: 20:27 pm1 Administered Medications: 20:27 Drug: Aspirin Chewable Tablet 162 mg Route: PO; jb4 Disposition Summary: 03/11/22 21:58 Hospitalization Ordered Hospitalization Status: Observation pm1 Provider: Armando Rodriguez pm1 Location: Telemetry/MedSurg (observation) pm1 Condition: Stable pm1 Problem: new pm1 Symptoms: have improved pm1 Bed/Room Type: Standard pm1 Room Assignment: 411(03/11/22 23:19) mw Diagnosis - Chest pain, unspecified pm1 Forms: - Medication Reconciliation Form pm1 - SBAR form pm1 Signatures: Dispatcher [employer] EDOrly Salas RN RN mw Fabrice Camejo PA PA cp Marinas, Patrick, CITY CARRIER ASSISTANT CITY CARRIER ASSISTANT pm1 Shmuel Jones RN RN jb4 Negrito Resendiz RN RN jd3 Celine Villaseñor RN RN sm5 Corrections: (The following items were deleted from the chart) 22:09 21:49 Physician consultation: Armando Rodriguez MD was called at 21:49, was contacted at pm1 21:49, regarding admission, patient's condition, and will see patient tomorrow, Wants Serial troponin x 3 and sliding scale insulin and will manage the rest of the medications tomorrow, pm1 23:19 21:58 pm1 mw
--- NOTE | 2022-03-11 21:59 | ER ---
Nurse's Notes [facility] Name: Hue Hernandez Age: 61 yrs Sex: Female : 1960 Arrival Date: 03/11/2022 Time: 18:29 Bed 16 Private MD: Armando Rodriguez Diagnosis: Chest pain, unspecified Presentation: 03/11 18:32 Chief complaint: Patient states: "I have been having chest pain since about 1700. I jd3 have had a previous heart attack in 2013. I took 2 baby aspirins before coming to the ER.". Coronavirus screen: At this time, the client does not indicate any symptoms associated with coronavirus-19. Ebola Screen: No symptoms or risks identified at this time. Initial Sepsis Screen: Does the patient meet any 2 criteria? No. Patient's initial sepsis screen is negative. Does the patient have a suspected source of infection? No. Patient's initial sepsis screen is negative. Risk Assessment: Do you want to hurt yourself or someone else? Patient reports no desire to harm self or others. Onset of symptoms was March 11, 2022. 18:32 Method Of Arrival: Ambulatory jd3 18:32 Acuity: TAYLOR 2 jd3 Historical: - Allergies: 18:33 Niacin; jd3 - PMHx: 18:33 Diabetes - IDDM; High Cholesterol; Myocardial infarction; jd3 - PSHx: 18:33 cardiac stents; jd3 - Immunization history:: Adult Immunizations up to date, Client reports receiving the 2nd dose of the Covid vaccine, Flu vaccine is up to date. - Social history:: Smoking status: Patient denies any tobacco usage or history of. Screenin:29 Abuse screen: Denies threats or abuse. Denies injuries from another. Nutritional as6 screening: No deficits noted. Tuberculosis screening: No symptoms or risk factors identified. Fall Risk None identified. Assessment: 20:28 General: Appears in no apparent distress. Behavior is calm, cooperative. Pain: as6 Complains of pain in mid-sternal area Pain does not radiate. Quality of pain is described as pressure, Pain began gradually. Neuro: Level of Consciousness is awake, alert, obeys commands, Oriented to person, place, time, situation. Cardiovascular: Reports chest pain. Respiratory: Airway is patent Trachea midline Respiratory effort is even, unlabored, Respiratory pattern is regular, symmetrical. 22:25 Reassessment: Patient appears in no apparent distress at this time. General: UPDATED PT as6 ON PLAN OF CARE. Vital Signs: 18:34 BP 131 / 87; Pulse 80; Resp 18 S; Temp 98.2(TE); Pulse Ox 98% on R/A; Weight 81.65 kg jd3 (R); Height 5 ft. 10 in. (177.80 cm) (R); Pain 7/10; 22:24 BP 125 / 80; Pulse 74; Resp 20 S; Pulse Ox 96% on R/A; as6 18:34 Body Mass Index 25.83 (81.65 kg, 177.80 cm) jd3 ED Course: 18:29 Patient arrived in ED. mr 18:29 Armando Rodriguez MD is Private Physician. mr 18:32 Triage completed. jd3 18:34 Arm band placed on. jd3 18:35 EKG completed in triage. Results shown to MD. jd3 18:44 Fabrice Camejo PA is PHCP. cp 18:44 Dejuan Pool MD is Attending Physician. cp 20:08 PHCP role handed off by Fabrice Camejo PA pm1 20:08 Isidro Cervantes NP is PHCP. pm1 20:20 XRAY Chest (1 view) In Process Unspecified. EDMS 20:23 Shmuel Jones, RN is Primary Nurse. jb4 20:29 Bed in low position. Call light in reach. Adult w/ patient. NIBP on. as6 20:29 Inserted saline lock: 22 gauge in left forearm, using aseptic technique. Blood as6 collected. Patient maintains SpO2 saturation greater than 95% on room air. 20:29 Basic Metabolic Panel Sent. as6 20:30 CBC with Diff Sent. as6 20:30 LFT's Sent. as6 20:30 Magnesium Sent. as6 20:30 NT PRO-BNP Sent. as6 20:30 PT-INR Sent. as6 20:30 Troponin HS Sent. as6 21:57 Armando Rodriguez MD is Hospitalizing Provider. pm1 22:24 COVID-19/FLU A+B (Document "Date of Onset" if Symptomatic) Sent. as6 23:39 No provider procedures requiring assistance completed. Patient admitted, IV remains in sm5 place. Administered Medications: 20:27 Drug: Aspirin Chewable Tablet 162 mg Route: PO; jb4 Outcome: 21:58 Decision to Hospitalize by Provider. pm1 23:39 Admitted to Med/surg accompanied by nurse, via wheelchair, with chart, Report called to karen Davidson 23:39 Condition: stable 23:39 Instructed on the need for admit. 23:40 [facility] Signatures: Dispatcher [employer] EDWA Minnie Hart mr Fabrice Camejo PA PA Isidro Correa, NILS BADGER DISTILLER OPERATOR pm1 Shmuel Jones RN RN jb4 Negrito Resendiz RN RN jd3 Derrick Burns RN RN as6 Celine Villaseñor RN RN sm5 Corrections: (The following items were deleted from the chart) 18:35 18:32 Chief complaint: Patient states: "I have been having chest pain since about 1700. jd3 I have had a previous heart attack in 2013." jd3
[2022-03-11 23:08] LABS: SARS-COV-2 RT PCR NEGATIVE (NEGATIVE)
[2022-03-11] MEDS ORDERED: D50W 25 GM/50 ML SYRINGE IV PRN (23:54)
[2022-03-11] MEDS ORDERED: NITROGLYCERIN 0.4 MG/TAB SL PRN (23:54)
[2022-03-11] MEDS ORDERED: GLUCAGON 1 MG/VIAL IM PRN (23:54)
[2022-03-12 00:30] VITALS: BMI 26.4
[2022-03-12 03:58] LABS: Absolute Lymphocytes (CBC) 2.4 K/uL (0.7-4.9); Hematocrit 41.6 % (36.0-45.0); Lymphocytes % 39.5 % (15.3-44.8); MPV 9.9 fL (7.6-11.3)
[2022-03-12 04:08] LABS: BUN Blood Urea Nitrogen 18 mg/dL (7-18); Bicarbonate 28 mmol/L (21-32); Glucose Level 185 mg/dL (74-106); Potassium 3.9 mmol/L (3.5-5.1); Sodium Level 141 mmol/L (136-145); Troponin High Sensitivity 11.7 pg/mL (<58.9)
[2022-03-12] MEDS ORDERED: INSULIN -REGULAR HUMAN 50 UNIT/0.5 ML ML SQ SCH (07:30)
[2022-03-12 08:52] VITALS: BP 104/60; TEMP 96.6; O2SAT 95
[2022-03-12] MEDS ORDERED: ASPIRIN EC 81 MG TAB PO SCH (09:00)
--- NOTE | 2022-03-13 06:51 | SS ---
Date of Discharge: 03/12/2022 Chief Complaint: Chest pain. 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 She started to have pain in the center of her chest and this was upper central chest area. Pain di d not radiate anywhere like to her neck, jaw, or back, but at the same time, she also had some pain i n her right axillary region. She did not have any nausea, vomiting. No sweating. No shortness of b reath. She picked up her food, went home and talked to her , and after she ate her food since she was not feeling any better, she decided to come to emergency room, and after she was evaluated, she was admitted to the hospital. Patient has remained asymptomatic after her admission to the [facility] and there has not been any recurrence of her complaints. Denies any acid reflux feeling. Review of Systems: Cardiovascular: As mentioned above. All other systems reviewed and negative. Allergies: TO NIACIN CAUSING RASH. Medications: List reviewed and her list includes aspirin 81 mg daily, clopidogrel 75 mg daily, carve dilol 3.125 mg at bedtime, Jardiance 25 mg daily, Basaglar insulin 50 units daily, NovoLog insulin 10 units 3 times a day, levothyroxine 200 mcg daily and 75 mcg daily, rosuvastatin 40 mg daily. Past Medical History: Significant for type 2 diabetes mellitus, hypertension, hyperlipidemia, [place] artery disease, history of myocardial infarction on July 14, 2017, hypothyroidism, diverticulosi s. Past Surgical History: Patient had coronary artery angioplasty with stent placement on July 14, and right ankle surgery. Family History: Father , had stroke and diabetes. Mother ; had coronary artery disease, hyp ertension, and stroke. Brother with diabetes. Sister with thyroid disorder. Social History: Negative for smoking and alcohol use. Immunization History: Had COVID-19 vaccine first dose on January 22, 2021 and second dose on February 12, 2021. Physical Examination: Vital Signs: Temperature 97.4, pulse 56, respiratory rate 16, blood pressure 117/66, oxygen saturati on 95%. Height 5 feet 9 inches, weight 179 pounds. General: Awake, alert, oriented, not in distress. HEENT: Head atraumatic, normocephalic. Conjunctivae nonerythematous. Sclerae white. Mouth, no thr ush or edema noted. Ears/Nose, no mass, lesion, discharge noted. Neck: Supple. No JVD, lymph nodes, bruit, thyromegaly noted. Lungs: Bilateral good equal air entry. Clear to auscultation. No rhonchi. No rales. Heart: Normal heart sounds, no murmur or gallop. Abdomen: Soft, bowel sounds normal. No guarding, rigidity, tenderness, mass, hepatosplenomegaly, dis tention, or bruit noted. Extremities: No leg edema. No calf tenderness. Skin: No rash, ulcer, cellulitis. Lymphatics: No lymph node enlargement in neck, supraclavicular, infraclavicular region. Neuro: No focal neurological deficit. Chest: Unremarkable. External Genitalia: Deferred. Rectal: Deferred. Laboratory Data: Yesterday, white count 6.4, hemoglobin 15, platelets 162. Today, white count 6.1, hemoglobin 14.1, platelets 153. Yesterday, sodium 141, potassium 4.1, chloride 107, bicarb 30, BUN 2 0, creatinine 0.78, glucose 100. Liver function tests normal. Today, sodium 141, potassium 3.9, chl oride 108, bicarb 28, BUN 18, creatinine 0.64, glucose 185. Her COVID-19 test, influenza A and B jeffery t were negative. Chest x-ray, no acute cardiopulmonary changes. EKG, no acute ST-T changes. Tropon in first set 11, second set 11.7, both within normal range. Hospital Course: After patient was evaluated in the ER, she was admitted to the hospital. She remai jasmin on telemetry without any recurrence of symptoms. Her AK was ruled out and the patient was medica lly stable for discharge. Her field traffic investigator is in [place] and she does not have appointment to see ca rdiologist until August or August of this year. So, I have advised her that she should call her field traffic investigator and follow up with field traffic investigator to see him either this week or next week and she will ne ed to have outpatient stress test and echocardiogram with her field traffic investigator. Patient was instructed t o contact my office to get any assistance for appointment with field traffic investigator in case if she has any di fficulty scheduling this appointment. Patient to follow up at my office next week on Friday, which i s 03/18/2022, and upon discharge, she was instructed to continue all her prior home medications that she was taking prior to this hospital admission. Final Diagnoses: 1.Chest pain. 2.Coronary artery disease. 3. . 4.Hypothyroidism. BRIEN/MODL Voice ID: [id number] Report ID: [id number]
--- NOTE | 2022-03-13 11:04 | EKG ---
Test Date: 2022-03-11 Test Time: 18:42:37 Pollution Control Technician: ANASTASIA MEASUREMENT RESULTS: Intervals: Rate: 84 ME: 158 QRSD: 90 QT: 374 QTc: 441 [place]: P: 62 ME: 158 QRS: 0 T: 131 INTERPRETIVE STATEMENTS: Normal sinus rhythm Possible Left atrial enlargement ST & T wave abnormality, consider lateral ischemia Abnormal ECG Compared to ECG 07/23/2017 03:22:22 ST (T wave) deviation now present Possible ischemia now present Myocardial infarct finding no longer present Electronically Signed On 03-13-22 10:58:00 CDT by Pee Cardona
== END 2022-03-12 08:50 | disposition home or self-care (01) ==
LOC: ER 18:22 → ERHOLD 22:03 → 4TH 23:31
PROVIDERS: ADMIT Internal Medicine; ATTEND Internal Medicine
DX: R07.9 Chest pain, unspecified (principal); I25.10 Atherosclerotic heart disease of native coronary artery without angina pectoris; I10 Essential (primary) hypertension; E11.9 Type 2 diabetes mellitus without complications; E03.9 Hypothyroidism, unspecified; E78.5 Hyperlipidemia, unspecified; K57.90 Diverticulosis of intestine, part unspecified, without perforation or abscess without bleeding; I25.2 Old myocardial infarction; Z95.5 Presence of coronary angioplasty implant and graft; Z79.82 Long term (current) use of aspirin; Z79.84 Long term (current) use of oral hypoglycemic drugs; Z79.4 Long term (current) use of insulin; Z79.899 Other long term (current) drug therapy; Z88.8 Allergy status to other drugs, medicaments and biological substances; Z20.822 Contact with and (suspected) exposure to COVID-19; Z82.3 Family history of stroke; Z82.49 Family history of ischemic heart disease and other diseases of the circulatory system; Z83.3 Family history of diabetes mellitus
CPT/HCPCS: 93005; 85025 ×2; 80048 ×2; 36415; 83735; 85610; 82947; 80076; 84484 ×2; 83880; 0240U; 71045; 99285; G0378; J1815

== ENCOUNTER 2022-12-25 00:06 | Inpatient (IN) | payer BC, OTHER ==
--- OUTSIDE RECORDS SUMMARY | 2022-12-25 00:14 | XMS REPORT | Continuity of Care Document ---
:1960 Author Organization [facility] t Address [address] [place] [address] Care Team Providers Name Role Phone Unknown, Physician Primary Care Physician Unavailable BAYRON JANG Attending Clinician Unavailable Adonay RN, Lisa Attending Clinician Unavailable Mario Alberto RN, Mode Attending Clinician Unavailable Ced BATES, Vibha Attending Clinician Unavailable Ghulam Finney Attending Clinician Veronica Wise Admitting Clinician Bayron Jang Admitting Clinician Payers Payer Name Policy Type Policy Number Effective Date Expiration Date S [facility] OPEN ACCESS AETNA [id number] 2011 00:00:00 SELECT EPO Problems Condition Condition Condition Status Onset Resolution Last Treating Co mments Source Name Details Category Date Date Treatment Clinician Date Encounter Encounter Disease Active [facility] for for 3-17 Health administra administra 00:00: tion of tion of 00 COVID-19 COVID-19 vaccine vaccine Ejection Ejection Disease Active 2019-12 UT fraction < fraction < 0-13 He alth 50% 50% 00:00: 00 Hyperlipid Hyperlipid Disease Active 2019-12 U T emia emia 0-13 Health 00:00: 00 Ischemic Ischemic Disease Active 2019-12 UT cardiomyop cardiomyop 0-13 He alth athy athy 00:00: 00 CAD CAD Disease Active 2019-12 UT (coronary (coronary 0-13 Heal th artery artery 00:00: disease) disease) 00 Cardiomyop Cardiomyop Disease Active 2019-12 U T athy athy 0-13 Health 00:00: 00 On statin On statin Disease Active 2018-12 UT therapy therapy 0-22 Health 00:00: 00 Diabetes Diabetes Disease Active UT mellitus mellitus 3-05 Health 00:00: 00 CHEST PAIN CHEST Diagnosis Active 2017-07-30 Memoria PAIN 8 21:44:00 l Active 00:00: Casa 07/23/2017 00 [facility] CARDIAC CARDIAC Diagnosis Active 2017-07-14 Memoria ARREST ARREST 07-14 13:16:00 l Active 00:00: Casa 07/14/2017 00 [facility] LFLT LFLT Diagnosis Active 2017-07-14 Mem oria Active 07-14 15:20:00 l 07/14/2017 00:00: Casimiro n [address] ACUTE ACUTE Diagnosis Active 2017-07-14 Mem oria ELEVATION ELEVATION 8-14 15:00:00 l MYOCARDIAL MYOCARDIAL 00:00: He rmann INFRACTION INFRACTION 00 Active 07/14/2017 [facility] ACUTE ST ACUTE ST Diagnosis Active 2017-07-19 Memoria ELEVATION ELEVATION 8-14 17:14:00 l MYOCARDIAL MYOCARDIAL 00:00: He rmann INFARCTION INFARCTION 00 Active 07/14/[address] [facility] [address] Diagnosis Active 2017-07-19 Mem oria ELEVATION ELEVATION 17:14:00 l (STEMI) (STEMI) Casa MYOCARDIAL MYOCARDIAL INFARCTI INFARCTI Active [facility] Chest pain Chest Problem Resolve 2017-07-26 Memoria (finding) pain d 04:30:33 l (finding) Casa Resolved Problem 07/26/2017 [facility] Hypertensi Hypertens Problem Resolve 2017-07-26 Memoria ve perla d 04:30:33 l disorder, disorder, Herm calderon systemic systemic arterial arterial (disorder) (disorder) Resolved Problem 07/26/2017 [facility] Allergies, Adverse Reactions, Alerts Allergy Allergy Status Severity Reaction(s) Onset Inactive Treating Comm ents Source Name Type Date Date Clinician niacin niacin Active Carolina Cormier Social History Social Habit Start Date Stop Date Quantity Comments Source Exposure to 2022-07-30 2022-08-09 Not sure [facility] SARS-CoV-2 00:00:00 08:43:00 (event) Alcohol intake 2022-08-09 2022-08-09 Ex-drinker [facility] 00:00:00 00:00:00 (finding) Tobacco use and 2021-11-14 2021-11-14 Smokeless tobacco [facility] exposure 00:00:00 00:00:00 non-user Social History 2017-07-15 2017-07-15 Wendy kerns 03:19:03 03:19:03 Sex Assigned At [birth year] [facility] 00:00:00 00:00:00 Smoking Status Start Date Stop Date Source Never smoked tobacco [facility] Medications Ordered Filled Start Stop Current Ordering Indication Dosage Frequency Signature Comments Components Source Medication Medication Date Date Medication? Clinician (SIG) Name Name Aspirin 81 Yes 81mg QD Take 81 mg U T MG capsule 08-09 by mouth 1 [facility] 10:10: (one) time 03 each day. Insulin Yes UT Lispro, 0.5 08-09 Health Unit Dial, 10:10: (HumaLOG 03 Jose KwikPen) 100 UNIT/ML solution pen-injecto r clopidogrel 2021- No [id number] 75mg QD Take 1 UT (Plavix) 75 08-09 tablet (75 H ealth MG tablet 00:00: 05:59 mg total) 00 :00 by mouth 1 (one) time each day. rosuvastati 2021- No [id number] 40mg Take 1 UT n (Crestor) 08-09 tablet (40 H ealth 40 MG 00:00: 05:59 mg total) tablet 00 :00 by mouth every night. lisinopril 2021- No [id number] 2.5mg QD Take 1 UT 2.5 MG 08-09 tablet Health tablet 00:00: 05:59 (2.5 mg 00 :00 total) by mouth 1 (one) time each day. metFORMIN Yes TAKE 1 UT (Glucophage 7-21 TABLET BY [facility] ) 500 MG 00:00: MOUTH tablet 00 DAILY IN THE EVENING WITH MEAL technetium Yes 4001 8mCi UT Tc-99m 4-20 Health sestamibi 17:30: (Cardiolite 07 ) radio-isoto pe injection 8-18 millicurie technetium 0 Yes 4001 8mCi UT Tc-99m 4-20 Health sestamibi 17:30: (Cardiolite 07 ) radio-isoto pe injection 8-18 millicurie technetium 2-0 Yes 4001 18mCi UT Tc-99m 4-20 [facility] sestamibi 17:30: (Cardiolite 06 ) radio-isoto pe injection 18-45 millicurie technetium 2-0 Yes 4001 18mCi UT Tc-99m 4-20 [facility] sestamibi 17:30: (Cardiolite 06 ) radio-isoto pe injection 18-45 millicurie Aspirin 81 2021-0 Yes 81mg QD Take 81 mg U T MG capsule 20 by mouth 1 Hea lth 13:52: (one) time 46 each day. Insulin 0 Yes UT Lispro, 0.5 20 [facility] Unit Dial, 13:52: (HumaLOG 46 Jose KwikPen) 100 UNIT/ML solution pen-injecto r nitroglycer Yes [id number] .4mg Place 1 UT in 03-20 tablet [facility] (Nitrostat) 00:00: (0.4 mg 0.4 MG SL 00 total) tablet under the tongue every 5 (five) minutes if needed for chest pain. May repeat dose every 5 minutes for up to 3 doses total. nitroglycer 0 2021- No [id number] .4mg Place 1 UT in 20 05-21 tablet [facility] (Nitrostat) 00:00: 04:59 (0.4 mg 0.4 MG SL 00 :00 total) tablet under the tongue every 5 (five) minutes if needed for chest pain. May repeat dose every 5 minutes for up to 3 doses total. Jardiance 0 Yes TAKE 1 UT 25 MG 4-04 TABLET BY Health 00:00: MOUTH 00 DAILY IN THE MORNING WITH BREAKFAST Jardiance 2021-0 Yes TAKE 1 UT 25 MG 4-04 TABLET BY Health 00:00: MOUTH 00 DAILY IN THE MORNING WITH BREAKFAST clopidogrel 0 Yes 75mg QD Take 75 mg UT (Plavix) 75 4-02 by mouth 1 He alth MG tablet 00:00: (one) time 00 each day. levothyroxi 2021-0 Yes 75ug QD Take 75 UT ne 4-02 mcg by [facility] (Synthroid, 00:00: mouth 1 Levoxyl) 75 00 (one) time MCG tablet each day. levothyroxi Yes 75ug QD Take 75 UT ne 4-02 mcg by Health (Synthroid, 00:00: mouth 1 Levoxyl) 75 00 (one) time MCG tablet each day. clopidogrel 2021- No 75mg QD Take 75 mg UT (Plavix) 75 4-02 09-09 by mouth 1 H ealth MG tablet 00:00: 00:00 (one) time 00 :00 each day. Aspirin 81 2020-12 Yes 81mg QD Take 81 mg U T MG capsule 2-15 by mouth 1 Hea lth 15:23: (one) time 05 each day. Insulin 2020-12 Yes UT Lispro, 0.5 2-15 Health Unit Dial, 15:23: (HumaLOG 05 Jose KwikPen) 100 UNIT/ML solution pen-injecto r rosuvastati 2020-12 Yes [id number] 40mg Take 1 UT n (Crestor) 2-15 tablet (40 He alth 40 MG 00:00: mg total) tablet 00 by mouth every night. rosuvastati 2020-12 Yes [id number] 40mg Take 1 UT n (Crestor) 2-15 tablet (40 He alth 40 MG 00:00: mg total) tablet 00 by mouth every night. rosuvastati 2020-12- No [id number] 40mg Take 1 UT n (Crestor) 2-15 -09 tablet (40 H ealth 40 MG 00:00: 00:00 mg total) tablet 00 :00 by mouth every night. carvedilol 2020-12 Yes 3.125mg Take 3.125 UT (Coreg) 0-10 mg by Health 3.125 MG 00:00: mouth tablet 00 every night. Basaglar 2020-12 Yes 50U QD Inject 50 UT KwikPen 100 0-10 Units Health UNIT/ML 00:00: under the injection 00 skin 1 (one) time each day. carvedilol 2020-12 Yes 3.125mg Take 3.125 UT (Coreg) 0-10 mg by Health 3.125 MG 00:00: mouth tablet 00 every night. Basaglar 2020-12 Yes 50U QD Inject 50 UT KwikPen 100 0-10 Units Health UNIT/ML 00:00: under the injection 00 skin 1 (one) time each day. carvedilol 2020-12 Yes 3.125mg Take 3.125 UT [...] MOUTH 00 DAILY 30 MINUTES BEFORE BREAKFAST Synthroid Yes TAKE 1 UT 200 MCG 9-29 TABLET BY Health tablet 00:00: MOUTH 00 DAILY 30 MINUTES BEFORE BREAKFAST Synthroid Yes TAKE 1 UT 200 MCG 9-29 TABLET BY Health tablet 00:00: MOUTH 00 DAILY 30 MINUTES BEFORE BREAKFAST NovoLOG Yes INJECT 8 UT FLEXPEN 100 8-31 UNITS Health UNIT/ML 00:00: UNDER THE injection 00 SKIN THREE TIMES DAILY WITH MEALS NovoLOG Yes INJECT 8 UT FLEXPEN 100 8-31 UNITS Health UNIT/ML 00:00: UNDER THE injection 00 SKIN THREE TIMES DAILY WITH MEALS NovoLOG Yes INJECT 8 UT FLEXPEN 100 8-31 UNITS Health UNIT/ML 00:00: UNDER THE injection 00 SKIN THREE TIMES DAILY WITH MEALS levothyroxi Yes TAKE 1 UT ne 8-04 TABLET BY Health (Synthroid, 00:00: MOUTH Levoxyl) 50 00 EVERY DAY. MCG tablet TAKE 30 MINUTES BEFORE BREAKFAST. levothyroxi Yes TAKE 1 UT ne 8-04 TABLET BY Health (Synthroid, 00:00: MOUTH Levoxyl) 50 00 EVERY DAY. MCG tablet TAKE 30 MINUTES BEFORE BREAKFAST. levothyroxi Yes TAKE 1 UT ne 8-04 TABLET BY Health (Synthroid, 00:00: MOUTH Levoxyl) 50 00 EVERY DAY. MCG tablet TAKE 30 MINUTES BEFORE BREAKFAST. Jardiance Yes TAKE 1 UT 10 MG 6-22 TABLET BY Health 00:00: MOUTH 00 DAILY IN THE MORNING WITH BREAKFAST Jardiance 2022- No TAKE 1 UT 10 MG 6-22 04-20 TABLET BY Health 00:00: 00:00 MOUTH 00 :00 DAILY IN THE MORNING WITH BREAKFAST Insulin No Notes: Memoria Glargine 07-24 (Same as: l 100 UNT/ML 02:00: Lantus) Do H ermann Injectable 00 not hold Solution insulin without contacting prescriber WASTE: F/P - Black; E - Municipal Trash Bin "single patient use only" atorvastati No Notes: Derik willard n 07-24 Same as l 02:00: Lipitor Casa clopidogrel No Notes: Derik willard 07-23 (Same As: l 14:00: Plavix) [place] 00 aspirin 81 No Notes: Do Me moria mg tablet, 07-23 not crush l enteric 14:00: or chew. Casimiro n coated 00 (Same As: Ecotrin) Insulin No 60 units) Derik willard Lispro 07-23 WASTE: F/P l 12:30: - Black; E [place] - [place] Trash Bin Stable for 28 days at room temperatur e. Expires in days from ____Date Lancets Yes 1 box, Memoria 07-21 MISC, l 17:43: Daily, # 1 [place] 51 box, 0 Refill(s) Accu-Chek 2016- Yes 1 ea, Carolina Jenise Plus 07-21 MISC, l Blood 17:43: Daily, Use Casimiro n Glucose 48 for blood Test Strips glucose monitoring ., # 100 ea, Insulin dependent, Does not use insulin pump, Last DM eval date 07/21/17, 3 Refill(s) Accu-Chek 2016- Yes 1 ea, Carolina Jenise Blood 07-21 MISC, l Glucose 17:43: ONCE, Use Anette nn Meter 43 for blood glucose monitoring , # 1 ea, Insulin dependent, Does not use insulin pump, Last DM eval date 07/21/17, 0 Refill(s) Lancets No 1 box, Memoria - MISC, l 17:37: Daily, # 1 [place] 00 box, 0 Refill(s) Insulin Yes 20 unit, Memori a Glargine 07-21 SUB-Q, l 100 UNT/ML 17:37: Bedtime, # H ermann Injectable 00 10 mL, 3 Solution Refill(s) insulin 2017 Yes 7 unit, Memoria lispro 100 07-21 SUB-Q, l units/mL 17:37: TID-Before Her kenny subcutaneou 00 Meals, # s injection 10 mL, 3 Refill(s) clopidogrel Yes 75 mg = 1 M emoria 75 mg oral 8-21 tab, PO, l tablet 17:37: Daily, # Casa 00 90 tab, 0 Refill(s) atorvastati Yes 80 mg = 1 M emoria n 80 mg - tab, PO, l oral tablet 17:37: Bedtime, # [place] 00 90 tab, 0 Refill(s) Accu-Chek 2017- No 1 ea, Memoria Jenise Plus 07-21 MISC, l Blood 17:37: Daily, Use Casimiro n Glucose 00 for blood Test Strips glucose monitoring ., # 100 ea, Insulin dependent, Does not use insulin pump, Last DM eval date 07/21/17, 3 Refill(s) Accu-Chek No 1 ea, Memoria Jenise Blood 07-21 MISC, l Glucose 17:37: ONCE, Use Anette nn Meter 00 for blood glucose monitoring , # 1 ea, Insulin dependent, Does not use insulin pump, Last DM eval date 07/21/17, 0 Refill(s) aspirin 81 Yes 81 mg = 1 Me moria mg tablet, - tab, PO, l enteric 17:37: Daily, # Cas[place] n coated 00 90 tab, 0 Refill(s) sodium No 250 mL, Memoria chloride 07-21 Rate: 999 l 0.9% INJ 06:16: ml/hr, Casa 250 mL 00 Infuse over: 0.3 hr, Route: IV, Dosing Weight 86.108 kg, Total Volume: 250, Start date: 07/21/17 1:16:00 CDT, Duration: 1 doses or times, Stop date: 07/21/17 1:33:00 CDT sodium No 250 mL, Memoria chloride 07-20 Rate: 999 l 0.9% INJ 11:15: ml/hr, Casa 250 mL 00 Infuse over: 0.3 hr, Route: IV, Dosing Weight 86.108 kg, Total Volume: 250, Start date: 07/20/17 6:15:00 CDT, Duration: 30 day, Stop date: 08/19/17 6:14:00 CDT Calcium 2016- No Notes: Memoria Gluconate 8-20 WASTE: F/P l 09:23: - Sink; E - Municipal Trash Bin sodium No 15 mmol, 5 Memor ia phosphate 8-20 mL, Route: l 09:23: IVPB, PRN, [place] 00 Dosing Weight 86.108, kg, PRN Abnormal Lab Result, For NON-ICU Patients Only., Start date: 07/20/17 4:23:00 CDT, Duration: 30 day, Stop date: 08/19/17 4:22:00 CDT potassium No Notes: Memori a phosphate 8-20 (Same as: l 09:23: K [place] 00 Phosphate. ) 1 mMol phoshate has 1.47 mEq potassium Infuse over 4 hours Potassium No Notes: Memori a Chloride 8-20 (Same as: l 09:23: KCL) Casa 00 Infuse over 2 hours. potassium No Notes: Memori a phosphate-s 8-20 (Same as: l odium 09:23: Phos-NaK) Casa phosphate 00 Each 1.5 250 mg-280 gm pkt has mg-160 mg 250mg oral powder phosphorou for s. Mix reconstitut w/2.5oz ion water and stir. Magnesium No Notes: Memori a Oxide 8-20 (Same as: l 09:23: Mag-Ox [place] 00 400) Magnesium oxide 532bq=232h g elemental magnesium Dose=____m g magnesium oxide (___mg elemental magnesium) Magnesium No Notes: Memori a Sulfate 8-20 WASTE: F/P l 09:23: - Sink; E - Municipal Trash Bin sodium 2017- No 250 mL, Memoria chloride 8-19 Rate: 250 l 0.9% INJ 22:06: ml/hr, Casa 250 mL 00 Infuse over: 1 hr, Route: IV, Dosing Weight 86.108 kg, Total Volume: 250, Start date: 07/19/17 17:06:00 CDT, Duration: 1 doses or times, Stop date: 07/20/17 17:05:00 CDT sodium 2017-0 No 250 mL, Memoria chloride 8-19 Rate: l 0.9% INJ 14:21: 83.33 [place] 250 mL 00 ml/hr, Infuse over: 3 hr, Route: IV, Dosing Weight 86.108 kg, Total Volume: 250, Start date: 07/19/17 9:21:00 CDT, Duration: 30 day, Stop date: 08/18/17 9:20:00 CDT sodium 2017-0 No 250 mL, Memoria chloride 8-19 Rate: 50 l 0.9% INJ 06:05: ml/hr, [place] 250 mL 00 Infuse over: 5 hr, Route: IV, Dosing Weight 86.108 kg, Total Volume: 250, Start date: 07/19/17 1:05:00 CDT, Duration: 30 day, Stop date: 08/18/17 1:04:00 CDT sodium 2017-0 No 1,000 mL, Memori a chloride 8-18 Rate: 75 l 0.9% 1000 21:27: ml/hr, Casimiro n ml INJ 00 Infuse 1,000 mL over: 13.3 hr, Route: IV, Dosing Weight 86.108 kg, Total Volume: 1,000, Start date: 07/18/17 16:27:00 CDT, Duration: 1 day, Stop date: 07/19/17 16:26:00 CDT sodium 2017-0 No 250 mL, Memoria chloride 8-18 Rate: 999 l 0.9% INJ 19:14: ml/hr, Casa 250 mL 00 Infuse over: 0.3 hr, Route: IV, Dosing Weight 86.108 kg, Total Volume: 250, Start date: 07/18/17 14:14:00 CDT, Duration: 1 doses or times, Stop date: 07/18/17 14:31:00 CDT sodium 2017-0 No 250 mL, Memoria chloride 8-18 Rate: 50 l 0.9% INJ 10:03: ml/hr, Casa 250 mL 00 Infuse over: 5 hr, Route: IV, Dosing Weight 86.108 kg, Total Volume: 250, Start date: 07/18/17 5:03:00 CDT, Duration: 30 day, Stop date: 08/17/17 5:02:00 CDT Docusate No Notes: Memoria Sodium 50 07-18 (Same as: l MG Oral 05:37: Colace) [place] Capsule 00 (Do Not [Colace] Crush) Miralax No Notes: Memoria 07-18 Dissolve l 05:35: in 8 oz of [place] 00 water or juice. (Same as: Miralax) Albuterol No Notes: Memori a 0.833 MG/ML 07-17 (Same as: l / 13:16: Duoneb) Casa Ipratropium 00 [place] 0.167 MG/ML Inhalant Solution heparin No Notes: Memoria sodium, 07-17 porcine l porcine 02:00: heparin [place] 2500 UNT/ML 00 Injectable Solution NS (Bolus) No 500 mL, Derik willard IV 07-16 100 ml/hr, l 21:22: Infuse [place] 00 Over: 5 hr, Route: IV, 500, Drug form: INJ, ONCE, Priority: STAT, Dosing Weight 86.108 kg, Start date: 07/16/17 16:22:00 CDT, Duration: 1 doses or times, Stop date: 07/16/17 16:22:00 CDT Insulin No 60 units) Derik willard Lispro 07-16 WASTE: F/P l 19:02: - Black; E [place] 00 - Municipal Trash Bin Stable for 28 days at room temperatur e. Expires in days from ____Date Iohexol No Notes: Memoria 07-16 (same l 16:24: as:Omnipaq Casa 00 ue 350). WASTE: F/P - Black; E - Municipal Trash Bin Lovenox No Notes: Memoria 07-16 Nurse to l 15:41: ensure Casa 00 documentat ion of patient education per anticoagul ation policy. (Same as: Lovenox) Furosemide No Notes: Memor ia 07-16 (Same as: l 14:15: Lasix) [place] 00 MEDICATION WASTE Product Size: 100 mg Product Wasted: ___ mg insulin No Notes: Memoria glargine 07-16 Same as: l 06:45: Lantus) Do not hold insulin without contacting prescriber WASTE: F/P - Black; E - Municipal Trash Bin Insulin No 60 units) Derik willard regular 07-16 WASTE: F/P l 06:19: - Black; E - Municipal Trash Bin Stable for 28 days at room temperatur e Expires in days from ____Date Dextrose No 25 gm, 50 Derik willard 50% Syringe 816 mL, Route: l 06:19: IVP, Drug Form: INJ, Dosing Weight 86.108, kg, PRN, PRN Blood Glucose Results, Start date: 07/16/17 1:19:00 CDT, Duration: 30 day, Stop date: 08/15/17 1:18:00 CDT Glucagon No 1 mg, Memoria 07-16 Route: IM, l 06:19: Drug form: PDR/INJ, PRN, Dosing Weight 86.108, kg, PRN Blood Glucose Results, Start date: 07/16/17 1:19:00 CDT, Duration: 30 day, Stop date: 08/15/17 1:18:00 CDT Levemir No 20 unit, Memori a 07-16 Route: l 06:18: SUB-Q, Bedtime, Dosing Weight 86.108, kg, Start date: 07/16/17 1:18:00 CDT, Duration: 30 day, Stop date: 08/14/17 21:00:00 CDT Lasix No Notes: Memoria 07-16 (Same as: l 01:06: Lasix) MEDICATION WASTE Product Size: 40 mg Product Wasted: _0_ mg Lisinopril No Notes: Memor ia 07-15 (Same as: l 23:21: Prinivil, Zestril) Dextrose No 12.5 gm, Memor ia 50% Syringe 07-15 25 mL, l 18:22: Route: IVP, Drug Form: INJ, Dosing Weight 86.108, kg, PRN, PRN Blood Glucose Results, Start date: 07/15/17 13:22:00 CDT, Duration: 30 day, Stop date: 08/14/17 13:21:00 CDT Insulin No Notes: Memoria regular 100 -15 (Same as: l unit + 18:22: Humulin R Cas[place] n sodium 00 and chloride NovoLIN R) 0.9% INJ 99 WASTE: F/P mL - Black; E - Municipal Trash Bin (Do not shake) Insulin No Notes: Memoria regular 100 8-15 (Same as: l unit + 18:21: Humulin R [place] n sodium 00 and chloride NovoLIN R) 0.9% INJ 99 WASTE: F/P mL - Black; E - Municipal Trash Bin (Do not shake) metoprolol No Notes: Memor ia tartrate 07-15 (Same as: l 16:00: Lopressor) [place] 00 12.5 mg=1/2 X 25 mg TAB Insulin No 60 units) Derik willard regular 07-15 WASTE: F/P l 14:42: - Black; E [place] 00 - Municipal Trash Bin Stable for 28 days at room temperatur e Expires in days from ____Date Glucagon No 1 mg, Memoria 07-15 Route: IM, l 14:42: Drug form: [place] PDR/INJ, PRN, Dosing Weight 86.108, kg, PRN Blood Glucose Results, Start date: 07/15/17 9:42:00 CDT, Duration: 30 day, Stop date: 08/14/17 9:41:00 CDT Dextrose No 12.5 gm, Memor ia 50% Syringe 07-15 25 mL, l 14:42: Route: Casa IVP, Drug Form: INJ, Dosing Weight 86.108, kg, PRN, PRN Blood Glucose Results, Start date: 07/15/17 9:42:00 CDT, Duration: 30 day, Stop date: 08/14/17 9:41:00 CDT Lasix No Notes: Memoria 07-15 (Same as: l 14:41: Lasix) [place] 00 MEDICATION WASTE Product Size: 40 mg Product Wasted: ___ mg pneumococca No Notes: Derik willard l capsular 8-15 (Same as: l polysacchar 14:00: Pneumovax H ermann judy type 1 00 23) vaccine / Refrigerat pneumococca e l capsular polysacchar judy type 10A vaccine / pneumococca l capsular polysacchar judy type 11A vaccine / pneumococca l capsular polysacchar judy type 12F vaccine / pneumococca l capsular polysacchar heparin No Notes: Memoria 8-15 porcine l 14:00: heparin [place] 00 aspirin 81 No Notes: Do Me moria mg tablet, 07-15 not crush l enteric 14:00: or chew. Cas[place]iro n coated 00 (Same As: Ecotrin) clopidogrel No Notes: Derik willard -15 (Same As: l 14:00: Plavix) [place] 00 Calcium No Notes: Memoria Gluconate 07-15 WASTE: F/P l 10:56: - Sink; E [place] 00 - Municipal Trash Bin Calcium No Notes: Memoria Carbonate 07-15 (Same As: l 500 MG 10:56: Tums) [place] Chewable 00 Calcium Tablet Carbonate 500 mg = 200 mg elemental calcium Dose = mg calcium carbonate ( mg elemental calcium) potassium No Notes: Memori a phosphate 07-15 (Same as: l 10:56: K [place] 00 Phosphate. ) 1 mMol phoshate has 1.47 mEq potassium Infuse over 4 hours Magnesium No Notes: Memori a Oxide 07-15 (Same as: l 10:56: Mag-Ox [place] 00 400) Magnesium oxide 307th=513i g elemental magnesium Dose=____m g magnesium oxide (___mg elemental magnesium) potassium No Notes: Memori a phosphate-s 07-15 (Same as: l odium 10:56: Phos-NaK) phosphate 00 Each 1.5 250 mg-280 gm pkt has mg-160 mg 250mg oral powder phosphorou for s. Mix reconstitut w/2.5oz ion water and stir. Magnesium No Notes: Memori a Sulfate 8-15 WASTE: F/P l 10:56: - Sink; E [place] 00 - Municipal Trash Bin sodium No 15 mmol, 5 Memor ia phosphate 8-15 mL, Route: l 10:56: IVPB, PRN, [place] 00 Dosing Weight 86.108, kg, PRN Abnormal Lab Result, Start date: 07/15/17 5:56:00 CDT, Duration: 30 day, Stop date: 08/14/17 5:55:00 CDT, FOR ICU USE ONLY Potassium No Notes: Memori a Chloride 8-15 (Same as: l 10:56: Potassium [place] 00 Chloride) Klor-Con No Notes: Memoria 8-15 (Same as: l 10:45: K-Dur 20) [place] 00 "Do Not Crush" With food and full glass of water Lasix No Notes: Memoria 8-15 (Same as: l 05:14: Lasix) [place] Dextrose No 12.5 gm, Memor ia 50% Syringe 8-15 25 mL, l 04:46: Route: IVP, Drug Form: INJ, Dosing Weight 86.108, kg, PRN, PRN Blood Glucose Results, Start date: 07/14/17 23:46:00 CDT, Duration: 30 day, Stop date: 08/13/17 23:45:00 CDT Insulin No Notes: Memoria regular 100 8-15 (Same as: l unit + 04:46: Humulin R [place] n sodium 00 and chloride NovoLIN R) 0.9% INJ 99 WASTE: F/P mL - Black; E - Municipal Trash Bin (Do not shake) Fentanyl No Notes: Memoria 8-15 (Same as: l 04:09: Sublimaze) Casa Preservati ve free. Melatonin 3 No Notes: Derik willard MG Extended 07-15 (Same as: l Release 03:22: Melatonin) Herm calderon Tablet 00 Acetaminoph No Notes: Derik willard en 325 MG / 8-15 (Same as: l Hydrocodone 02:42: [place] Anette nn Bitartrate 00 325/5) Do 5 MG Oral not exceed Tablet 4gm/day of [[place] acetaminop 5/325] hen. atorvastati No Notes: Derik willard n 07-15 Same as l 02:00: Lipitor [place] Saline No Notes: Memoria Flush 0.9% 07-15 (Same as: l 02:00: BD [place]a Posiflush) Tylenol No Notes: Do Memor ia 07-14 not exceed l 21:40: 4 gm/day. [place] (Same as: Tylenol) Sodium No 250 mL, Memoria Chloride 07-14 250 ml/hr, l 0.9% 20:00: Infuse [place] (Bolus) IV 00 Over: 1 hr, Route: IV, 250, Drug form: INJ, ONCALL, Priority: Routine, Dosing Weight 86.108 kg, Start date: 07/14/17 15:00:00 CDT, Duration: 1 doses or times sodium No 750 mL, Memoria chloride 07-14 Rate: 75 l 0.9% 1000 19:52: ml/hr, Cas[place] n ml INJ 750 00 Infuse mL over: 10 hr, Route: IV, Dosing Weight 86.108 kg, Total Volume: 750, Start date: 07/14/17 14:52:00 CDT, Duration: 24 hr, Stop date: 07/15/17 14:51:00 CDT Saline No Notes: Memoria Flush 0.9% 07-14 (Same as: l 18:14: BD [place] 00 Posiflush) Nitroglycer No Notes: Derik willard in 07-14 (Same l 18:14: as:Nitroqu ick, Nitrostat) "Do Not Crush" Sublingual tablet Immunizations Ordered Immunization Filled Immunization Date Status Commen ts Source Name Name COVID-19 Pfizer 2021-02-12 [facility]pleted [facility]:00 COVID-19 Pfizer 2021-02-12 [facility] ([place]) COVID-19 Pfizer 2021-02-12 [facility]:00 ([place]) COVID-19 Pfizer 2021-01-22 [facility]:00 COVID-19 Pfizer 12 & 2021-01-22 [facility]:00:00 ([place]) COVID-19 Pfizer 12 & 2021-01-22 [facility] 00:00:00 ([place]) COVID-19 Pfizer 12 & 2021-01-22 [facility] 00:00:00 ([place]) COVID-19 Pfizer 12 & 2021-01-22 [facility] 00:00:00 ([place]) pneumococcal 2017-07-21 Completed [facility] 23-valent vaccine 15:31:00 [facility]a Vital Signs Vital Name Observation Time Observation Value Comments Source Systolic blood 2022-08-09 15:07:00 116 mm[Hg] [facility] Diastolic blood 2022-08-09 15:07:00 66 mm[Hg] [facility] Heart rate 2022-08-09 15:07:00 58 /min [facility] Body temperature 2022-08-09 15:07:00 [facility].78 [facility] 2022-08-09 15:07:00 [facility]3 [facility] 2022-08-09 15:07:00 [facility]555 [facility] BMI 2022-08-09 15:07:00 26.88 kg/m2 [facility] Systolic blood 2022-08-09 15:07:00 116 mm[Hg] [facility] Diastolic blood 2022-08-09 15:07:00 66 mm[Hg] [facility] Heart rate 2022-08-09 15:07:00 58 /min [facility] temperature 2022-08-09 15:07:00 36.78 [facility] 2022-08-09 15:07:00 [facility].3 [facility] weight 2022-08-09 15:07:00 82.555 [facility] BMI 2022-08-09 15:07:00 26.88 kg/m2 [facility] Systolic blood 2022-03-20 18:49:00 108 mm[Hg] [facility] Diastolic blood 2022-03-20 18:49:00 73 mm[Hg] [facility] Heart rate 2022-03-20 18:49:00 66 /min [facility] temperature 2022-03-20 18:49:00 36.28 [facility] 2022-03-20 [facility]22-03-20 18:49:00 26[facility]14 [facility] 2017-07-23 16:30:00 [facility] Diastolic (mm Hg) 2017-07-23 16:30:00 [facility] [place] Temperature Oral (F) 2017-07-23 16:30:00 97.8 F [facility] Respitory Rate 2017-07-23 16:30:00 [facility] Systolic (mm Hg) 2017-07-23 16:00:00 [facility] Diastolic (mm Hg) 2017-07-23 16:00:00 [facility] Respitory Rate 2017-07-23 16:00:00 [facility] Systolic (mm Hg) 2017-07-23 15:30:00 Derik [facility] [place] Diastolic (mm Hg) 2017-07-23 15:30:00 [facility] Respitory Rate 2017-07-23 15:30:00 [facility] Temperature Oral (F) 2017-07-23 12:00:00 97.9 F [facility] Height 2017-07-23 11:41:00 175.26 cm [facility] Weight 2017-07-23 11:41:00 [facility] BMI Calculated 2017-07-23 11:41:00 [facility] [place] Temperature Oral (F) 2017-07-21 17:41:00 96.1 F [facility] Systolic (mm Hg) 2017-07-21 16:15:00 [facility] Diastolic (mm Hg) 2017-07-21 16:15:00 [facility] Systolic (mm Hg) 2017-07-21 15:00:00 Derik [facility] [place] Diastolic (mm Hg) 2017-07-21 15:00:00 [facility] Systolic (mm Hg) 2017-07-21 14:00:00 Derik kathy [place] Diastolic (mm Hg) 2017-07-21 14:00:00 [facility] Respitory Rate 2017-07-21 13:27:00 [facility] Temperature Oral (F) 2017-07-21 13:25:00 97.8 F [facility] Temperature Oral (F) 2017-07-21 10:29:00 97.9 F [facility] Respitory Rate 2017-07-20 18:00:00 [facility] Respitory Rate 2017-07-20 17:00:00 [facility] [place] BMI Calculated 2017-07-14 18:31:00 [facility] [place] Height 2017-07-14 18:31:00 175.26 cm [facility] Weight 2017-07-14 18:31:00 [facility] Procedures Procedure Date / Time Performed Performing Clinician Flash e PCI - Percutaneous [facility] intervention Encounters Start End Encounter Admission Attending Care Care Encounter Source Date/Time Date/Time Type Type Clinicians Facility Department ID 2021-11-27 Outpatient [facility] [id number] [place] 02:23:43 [facility] 2021-11-20 Outpatient [facility] [id number] [place] 12:00:09 [facility] 2021-11-14 Outpatient DEANDRAS, [facility] [id number] [place] 15:48:12 ALLEGRATOMMY Delon [facility] S 2021-11-14 Outpatient [facility] [id number] [place] 15:48:12 [facility] 2021-04-07 Outpatient ADOLFO, [facility] [id number] [place] 03:56:04 ALELGRATOMMY Didiera [facility] S 2023-02-04 2023-02-04 Outpatient DEANDRAS, [facility] [id number] [place] 11:00:00 11:00:00 ALLEGRATOMMY Didier [facility] S 2023-02-04 2023-02-04 Outpatient [facility] [id number] [place] 10:00:00 10:00:00 Health 2022-08-09 2022-08-09 Office Adolfo, [facility] [id number] [place] 10:00:00 10:32:54 Visit Leif SEARSSHANICE [id number] Health [facility] [id number] SPECIALTY [id number] CLINIC 1 2022-08-09 2022-08-09 Outpatient [facility] [id number] [place] 09:00:00 10:02:39 Health 2022-04-08 2022-04-08 Outpatient [facility] [id number] [place] 08:00:00 08:00:00 Health 2022-03-20 2022-03-20 Office DARVIN aJng 1.2.840.114 [id number] [place] 18:00:00 18:00:00 Visit Leif MERCER [id number] Health s MULTI [id number] SPECIALTY [id number] CLINIC 1 2022-03-13 2022-03-13 Telephone Lisa Urias 1.2.840.11 [id number] [place] 00:00:00 00:00:00 Lisa Urias [id number] Health [facility] [id number] SPECIALTY [id number] CLINIC 1 2022-03-12 2022-03-12 Telephone [place] 1.2.840.11 [id number] [place] 00:00:00 00:00:00 [place] [id number] Health MEDICAL [id number] CENTER [id number] 2022-03-12 2022-03-12 Telephone Lisa Urias U[facility] 1.2.840.11 4 [id number] [place] 00:00:00 00:00:00 Lisa Urias [id number] Health MULTI [id number] SPECIALTY [id number] CLINIC 1 2022-03-12 2022-03-12 Telephone Lisa Urias 1.2.840.11 [id number] [place] 00:00:00 00:00:00 Lisa Urias [id number] Health MULTI [id number] SPECIALTY [id number] CLINIC 1 2021-11-29 2021-11-29 Outpatient [facility] [id number] [place] 10:30:00 10:30:00 Health 2021-11-14 2021-11-14 Office DARVIN Jang 1.2.840.114 [id number] [place] 15:00:00 15:48:08 Visit Leif MERCER [id number] Health s MULTI [id number] SPECIALTY [id number] CLINIC 1 2021-10-09 2021-10-09 Orders Lisa Urias DARVIN 1.2.840.114 [id number] [place] 00:00:00 00:00:00 Only Lisa Urias [id number] Health MULTI [id number] SPECIALTY [id number] CLINIC 1 2021-10-09 2021-10-09 Telephone [place]Vibha [place] 1.2.84 0.114 [id number] [place] 00:00:00 00:00:00 Vibha Coughlin [id number] Health MEDICAL [id number] CENTER [id number] 2021-05-02 2021-05-02 Refill Adolfo DARVIN 1.2.840.114 [id number] [place] 00:00:00 00:00:00 Leif MERCER [id number] Health s MULTI [id number] SPECIALTY [id number] CLINIC 5 2017-07-23 2017-07-23 [facility]patient [facility] [id number] Memoria 11:33:00 20:00:00 nancy Cormier 35 [facility] 2017-07-23 2017-07-23 Outpatient Reg [facility] [id number] 06:33:00 15:00:00 Ghulam 35 2017-07-14 2017-07-21 Inpatient [facility] [id number] Memoria 16:28:00 19:16:00 nancy Cormier 67 [facility] 2017-07-14 2017-07-21 Outpatient Reg [facility] [id number] 11:28:00 14:16:00 Ghulam 67 Results Test Description Test Time Test Comments Results Result Comments Source CARDI[facility] ENZYMES 2017-07-23 11:54:00 Test Item Value Reference Range Interpretation Comme nts Troponin-I (test code = 1.65 See_Comment [Au tomated message] The system Troponin-I) which generated this result transmitted ref erence range: <=0.40. The ref erence range was not used to interpr et this result as normal/abnormal . [facility] [id number] 11:54:00 Test Item Value Reference Range Interpretation Comments Total CK (test code = Total CK) 229 12-191 [facility] [id number] 11:54:00 Test Item Value Reference Range Interpretation Comments eGFR (test code = eGFR) 68 [facility] [id number] 11:54:00 Test Item Value Reference Range Interpretation Comments Bili Total (test code = Bili Total) 0.4 0.2-1.3 [facility]2017-08-23 11:54:00 Test Item Value Reference Range Interpretation Comments AST (test code = AST) 34 See_Comment [Auto mated message] The system which ge nerated this result transmit terry reference range : <=37. The reference range was not used to interpr et this result as maria luz l/abnormal. [facility] [id number] 11:54:00 Test Item Value Reference Range Interpretation Comments Alk Phos (test code = Alk Phos) 132 39-136 [facility]2017-08-23 11:54:00 Test Item Value Reference Range Interpretation Comments Glucose Lvl (test code = Glucose Lvl) 121 70-99 [facility]2017-08-23 11:54:00 Test Item Value Reference Range Interpretation Comments Creatinine Lvl (test code = Creatinine 0.93 0.50-1.40 Lvl) [facility] [id number] 11:54:00 Test Item Value Reference Range Interpretation Comments BUN (test code = BUN) 21 7-22 [facility] [id number] 11:54:00 Test Item Value Reference Range Interpretation Comments ALT (test code = ALT) 53 See_Comment [Auto mated message] The system which ge nerated this result transmit terry reference range : <=65. The reference range was not used to interpr et this result as maria luz l/abnormal. [facility] [id number] 11:54:00 Test Item Value Reference Range Interpretation Comments Albumin Lvl (test code = Albumin Lvl) 3.3 3.5-5.0 [facility]2017-08-23 11:54:00 Test Item Value Reference Range Interpretation Comments CO2 (test code = CO2) 24-32 [facility]2017-08-23 11:54:00 Test Item Value Reference Range Interpretation Comments Potassium Lvl (test code = Potassium 3.9 3.5-5.1 Lvl) [facility]2017-08-23 11:54:00 Test Item Value Reference Range Interpretation Comments Chloride Lvl (test code = Chloride Lvl) 105 95-109 [facility]2017-08-23 11:54:00 Test Item Value Reference Range Interpretation Comments Sodium Lvl (test code = Sodium Lvl) 138 135-145 [facility]2017-08-23 11:54:00 Test Item Value Reference Range Interpretation Comments Calcium Lvl (test code = Calcium Lvl) 8.5 8.5-10.5 [facility]2017-08-23 11:54:00 Test Item Value Reference Range Interpretation Comments Total Protein (test code = Total 6.9 6.4-8.4 Protein) [facility]2017-08-23 11:54:00 Test Item Value Reference Range Interpretation Comments A/G Ratio (test code = A/G Ratio) 0.9 0.7-1.6 [facility]2017-08-23 11:54:00 Test Item Value Reference Range Interpretation Comments Globulin (test code = Globulin) 3.6 2.7-4.2 [facility]2017-08-23 11:54:00 Test Item Value Reference Range Interpretation Comments B/C Ratio (test code = B/C Ratio) 23 05- [facility]2017-08-23 11:54:00 Test Item Value Reference Range Interpretation Comments AGAP (test code = AGAP) 13.9 10.0-20.0 [facility] H[id number] 11:54:00 Test Item Value Reference Range Interpretation Comments Eosinophils # (test code 0.3 See_Comment [A utomated message] The = Eosinophils #) system [facility] h generated this result tra nsmitted reference range : <=0.5. The reference r hazel was not used to int erpret this result as normal/abnormal . [facility] H[id number] 11:54:00 Test Item Value Reference Range Interpretation Comments Basophils # (test code 0.1 See_Comment [Aut omated message] The = Basophils #) system which generated this result tra nsmitted reference range : <=0.2. The reference r hazel was not used to int erpret this result as normal/abnormal . [facility] HospitalSrrntmpFVFATRXGYC2650-81-89 11:54:00 Test Item Value Reference Range Interpretation Comments Monocytes # (test code 0.6 See_Comment [Aut omated message] The = Monocytes #) system which generated this result tra nsmitted reference range : <=0.8. The reference r hazel was not used to int erpret this result as normal/abnormal . [facility] HospitalSpsgszbCEONDCGNET4584-35-77 11:54:00 Test Item Value Reference Range Interpretation Comments Macrocyte (test code = 1+ *ABN*(07/23/17 Macrocyte) 6:54 AM) [facility] Hos[id number] 11:54:00 Test Item Value Reference Range Interpretation Comments Monocytes (test code = Monocytes) 6.7 2.0-12.0 [facility] HospitalJhgpoveMMTQTZZFYZ6699-82-92 11:54:00 Test Item Value Reference Range Interpretation Comments Segs (test code = Segs) 68.5 45.0-75.0 [facility] HospitalPsgzelcRGPKNYPXZQ5561-05-13 11:54:00 Test Item Value Reference Range Interpretation Comments Lymphocytes (test code = Lymphocytes) 20.8 20.0-40.0 [facility] HospitalLwlobhvGTXLRWJJBH3386-51-44 11:54:00 Test Item Value Reference Range Interpretation Comments Lymphocytes # (test code = Lymphocytes 1.8 1.0-5.5 #) [facility] HospitalOcfnzypBADAMVYZAS7838-10-40 11:54:00 Test Item Value Reference Range Interpretation Comments Eosinophils (test code = 3.1 See_Comment [A utomated message] The Eosinophils) system which ge nerated this result tra nsmitted reference range : <=4.0. The reference r hazel was not used to int erpret this result as normal/abnormal . [facility] HospitalZxzvyzbOKRSLYFYAY4469-81-55 11:54:00 Test Item Value Reference Range Interpretation Comments Basophils (test code = 0.9 See_Comment [Aut omated message] The Basophils) system which ge nerated this result tra nsmitted reference range : <=1.0. The reference r hazel was not used to int erpret this result as normal/abnormal . [facility] HospitalGcvzrfqHPQIANXCWT8388-53-47 11:54:00 Test Item Value Reference Range Interpretation Comments Segs-Bands # (test code = Segs-Bands #) 6.1 1.5-8.1 [facility] HospitalCtaxxbhHCYABEXYVW2190-00-20 11:54:00 Test Item Value Reference Range Interpretation Comments PTT (test code = PTT) 36.2 s 22.9-35.8 [facility] HospitalNbwxhqfWHHEAXVVQX8225-58-09 11:54:00 Test Item Value Reference Range Interpretation Comments PT (test code = PT) 13.6 s 12.0-14.7 [facility] HospitalTyzajaxUODEPZMNNV7864-99-37 11:54:00 Test Item Value Reference Range Interpretation Comments INR (test code = INR) 1.02 0.85-1.17 [facility] HospitalQytsyijCZRTWMHMZV2103-47-07 11:54:00 Test Item Value Reference Range Interpretation Comments Platelet (test code = Platelet) 178 133-450 [facility] HospitalTdrvqcsYNGVEXAUFN8581-14-64 11:54:00 Test Item Value Reference Range Interpretation Comments MPV (test code = MPV) 9.5 7.4-10.4 [facility] HospitalSfocddhHLHPQEIFEQ4467-03-96 11:54:00 Test Item Value Reference Range Interpretation Comments RDW (test code = RDW) 13.8 11.5-14.5 [facility] HospitalEquwjoaRMRPOCFESY3568-27-55 11:54:00 Test Item Value Reference Range Interpretation Comments MCHC (test code = MCHC) 33.5 32.0-36.0 [facility] HospitalXlykjbbMNHLSNBAPJ8937-28-81 11:54:00 Test Item Value Reference Range Interpretation Comments Hgb (test code = Hgb) 11.8 12.0-16.0 [facility] HospitalFxhiztfMARZZRJZNR7347-05-67 11:54:00 Test Item Value Reference Range Interpretation Comments Hct (test code = Hct) 35.3 36.0-48.0 [facility] HospitalNwdhlmsAVCAWXHSFZ4777-65-38 11:54:00 Test Item Value Reference Range Interpretation Comments MCV (test code = MCV) 102.9 80.0-98.0 [facility]entonCovxcaeJENDBWBLWH3046-16-62 11:54:00 Test Item Value Reference Range Interpretation Comments MCH (test code = MCH) 34.4 pg 27.0-31.0 [facility] DentonYohsgkvDXKSIBDTZZ8875-18-38 11:54:00 Test Item Value Reference Range Interpretation Comments WBC (test code = WBC) 8.8 3.7-10.4 [facility] DentonRwnezxdCPRZCMARDT3020-94-20 11:54:00 Test Item Value Reference Range Interpretation Comments RBC (test code = RBC) 3.43 4.20-5.40 [facility]entonannPARATHYROID [id number] 11:54:00 Test Item Value Reference Range Interpretation Comments Ca Norm WB (test code = Ca Norm WB) 0.96 1.05-1.25 [facility]entonannPARATHYROID [id number] 11:54:00 Test Item Value Reference Range Interpretation Comments Ca Ion WB (test code = Ca Ion WB) 0.93 1.05-1.25 [facility]entonannBACTERIAL - [id number] 11:54:00 Test Item Value Reference Range Interpretation Comments MRSA by PCR (test Negative (07/23/17 6:54 code = MRSA by PCR) AM) [facility] [id number] 11:54:00 Test Item Value Reference Range Interpretation Comments CK MB Index (test 1.9 See_Comment [Automate d message] The code = CK MB Index) system w [facility] generated this result transmit terry reference range : <=2.5. The reference range was not used to interpr et this result as maria luz l/abnormal. [facility] [id number] 11:54:00 Test Item Value Reference Range Interpretation Comments CK MB (test code = CK MB) 4.3 0.5-3.6 [facility]enton[facility] [id number] 11:54:00 Test Item Value Reference Range Interpretation Comments Troponin-T (test code 0.629 See_Comment [Auto mated message] The = Troponin-T) system which g enerated this result transmit terry reference range : <=0.100. The reference r hazel was not used to interpr et this result as maria luz l/abnormal. [facility]enton[facility] BANK [id number] 07:24:00 Test Item Value Reference Range Interpretation Comments Antibody Scrn (test Negative (07/21/17 2:24 code = Antibody Scrn) AM) [facility] [id number] 07:24:00 Test Item Value Reference Range Interpretation Comments ABO/Rh (test code = ABO/Rh) O POS [facility] [id number] 07:24:00 Test Item Value Reference Range Interpretation Comments Magnesium Lvl (test code = Magnesium 2.1 1.8-2.4 Lvl) [facility] [id number] 07:24:00 Test Item Value Reference Range Interpretation Comments Phosphorus (test code = Phosphorus) 3.2 2.5-4.5 [facility] [id number] 07:24:00 Test Item Value Reference Range Interpretation Comments eGFR (test code = eGFR) 63 [facility] [id number] 07:24:00 Test Item Value Reference Range Interpretation Comments Chloride Lvl (test code = Chloride Lvl) 103 95-109 [facility] [id number] 07:24:00 Test Item Value Reference Range Interpretation Comments Potassium Lvl (test code = Potassium 3.8 3.5-5.1 Lvl) [facility] [id number] 07:24:00 Test Item Value Reference Range Interpretation Comments BUN (test code = BUN) 18 - [facility] [id number] 07:24:00 Test Item Value Reference Range Interpretation Comments Sodium Lvl (test code = Sodium Lvl) 137 135-145 [facility] [id number] 07:24:00 Test Item Value Reference Range Interpretation Comments Creatinine Lvl (test code = Creatinine 1.00 0.50-1.40 Lvl) [facility] [id number] 07:24:00 Test Item Value Reference Range Interpretation Comments Calcium Lvl (test code = Calcium Lvl) 8.8 8.5-10.5 [facility] [id number] 07:24:00 Test Item Value Reference Range Interpretation Comments CO2 (test code = CO2) 28 24-32 [facility] [id number] 07:24:00 Test Item Value Reference Range Interpretation Comments Glucose Lvl (test code = Glucose Lvl) 120 70-99 [facility]2017-08-21 07:24:00 Test Item Value Reference Range Interpretation Comments AGAP (test code = AGAP) 9.8 10.0-20.0 [facility] HospitalVawjqsaEJPZWYHWUI2820-49-92 07:24:00 Test Item Value Reference Range Interpretation Comments RBC (test code = RBC) 3.54 4.20-5.40 [facility] HospitalZsuwqbtVETQOEUJNI5194-08-99 07:24:00 Test Item Value Reference Range Interpretation Comments Hct (test code = Hct) 35.9 36.0-48.0 [facility] HospitalPhpbaovEMWMDLJCWR4709-08-16 07:24:00 Test Item Value Reference Range Interpretation Comments Hgb (test code = Hgb) 12.3 12.0-16.0 [facility] HospitalMlnuxzcGQOEHAWWPF0264-25-13 07:24:00 Test Item Value Reference Range Interpretation Comments MCH (test code = MCH) 34.7 pg 27.0-31.0 [facility] HospitalTrwbguhJKOSRCZLMQ0114-81-42 07:24:00 Test Item Value Reference Range Interpretation Comments MCV (test code = MCV) 101.6 80.0-98.0 [facility] HospitalRcgszvrIZMPLARXLS7831-53-43 07:24:00 Test Item Value Reference Range Interpretation Comments WBC (test code = WBC) 8.6 3.7-10.4 [facility] HospitalEbbzfvxVYKBHMAJPQ5679-43-95 07:24:00 Test Item Value Reference Range Interpretation Comments MPV (test code = MPV) 10.1 7.4-10.4 [facility] HospitalHribaxuKFEAASJHOA6975-36-48 07:24:00 Test Item Value Reference Range Interpretation Comments Platelet (test code = Platelet) 160 133-450 [facility] HospitalYyakvykVNTODIHLFQ2974-43-13 07:24:00 Test Item Value Reference Range Interpretation Comments MCHC (test code = MCHC) 34.2 32.0-36.0 [facility] HospitalHrsgzbmUMQFZHBRHZ5715-68-95 07:24:00 Test Item Value Reference Range Interpretation Comments RDW (test code = RDW) 13.4 11.5-14.5 [facility] HospitalDiudzdrAPQBORDECF6476-34-70 07:24:00 Test Item Value Reference Range Interpretation Comments Macrocyte (test code = 1+ *ABN*(07/21/17 Macrocyte) 2:24 AM) [facility] HospitalSxrjvnnWPHUEMOQPY7374-26-72 07:24:00 Test Item Value Reference Range Interpretation Comments Basophils # (test code 0.1 See_Comment [Aut omated message] The = Basophils #) system which generated this result tra nsmitted reference range : <=0.2. The reference r hazel was not used to int erpret this result as normal/abnormal . [facility] HospitalRitaelkPBFSQUIPVI8877-80-00 07:24:00 Test Item Value Reference Range Interpretation Comments Lymphocytes # (test code = Lymphocytes 1.6 1.0-5.5 #) [facility] HospitalXddmiqwAGZLVBLHWI9116-28-10 07:24:00 Test Item Value Reference Range Interpretation Comments Segs-Bands # (test code = Segs-Bands #) 6.0 1.5-8.1 [facility] HospitalCnxnrylUQHVZHUABI1812-47-39 07:24:00 Test Item Value Reference Range Interpretation Comments Eosinophils # (test code 0.3 See_Comment [A utomated message] The = Eosinophils #) system whic h generated this result tra nsmitted reference range : <=0.5. The reference r hazel was not used to int erpret this result as normal/abnormal . [facility] HospitalAivbfjtZSDYJEWQEI1079-91-31 07:24:00 Test Item Value Reference Range Interpretation Comments Monocytes # (test code 0.7 See_Comment [Aut omated message] The = Monocytes #) system which generated this result tra nsmitted reference range : <=0.8. The reference r hazel was not used to int erpret this result as normal/abnormal . [facility] HospitalBjktyaqGDHQJCIFZQ9709-57-04 07:24:00 Test Item Value Reference Range Interpretation Comments Basophils (test code = 0.7 See_Comment [Aut omated message] The Basophils) system which ge nerated this result tra nsmitted reference range : <=1.0. The reference r hazel was not used to int erpret this result as normal/abnormal . [facility] HospitalNznecirBLOMIWQUEW2194-14-35 07:24:00 Test Item Value Reference Range Interpretation Comments Monocytes (test code = Monocytes) 7.9 2.0-12.0 [facility] HospitalJywdkncEZZBWACLKF4406-36-82 07:24:00 Test Item Value Reference Range Interpretation Comments Lymphocytes (test code = Lymphocytes) 18.4 20.0-40.0 [facility] HospitalAwiiwmsZUTZEQUVQO8892-05-66 07:24:00 Test Item Value Reference Range Interpretation Comments Eosinophils (test code = 3.7 See_Comment [A utomated message] The Eosinophils) system which ge nerated this result tra nsmitted reference range : <=4.0. The reference r hazel was not used to int erpret this result as normal/abnormal . [facility] DentonZdpnideZCVQUAVIOX0260-23-31 07:24:00 Test Item Value Reference Range Interpretation Comments Segs (test code = Segs) 69.3 45.0-75.0 [facility]PARATHYROID [id number] 07:24:00 Test Item Value Reference Range Interpretation Comments Ca Norm WB (test code = Ca Norm WB) 1.15 1.05-1.25 [facility]PARATHYROID [id number] 07:24:00 Test Item Value Reference Range Interpretation Comments Ca Ion WB (test code = Ca Ion WB) 1.16 1.05-1.25 [facility]CHEM [id number] 09:43:00 Test Item Value Reference Range Interpretation Comments Calcium Lvl (test code = Calcium Lvl) 8.2 8.5-10.5 [facility]PARATHYROID [id number] 09:43:00 Test Item Value Reference Range Interpretation Comments Ca Ion WB (test code = Ca Ion WB) 0.99 1.05-1.25 [facility]PARATHYROID [id number] 09:43:00 Test Item Value Reference Range Interpretation Comments Ca Norm WB (test code = Ca Norm WB) 1.03 1.05-1.25 [facility]CARDIAC [id number] 07:23:00 Test Item Value Reference Range Interpretation Comments CK MB Index (test 1.2 See_Comment [Automate d message] The code = CK MB Index) system w [facility] generated this result transmit terry reference range : <=2.5. The reference range was not used to interpr et this result as maria luz l/abnormal. [facility]CARDI[facility] [id number] 07:23:00 Test Item Value Reference Range Interpretation Comments CK MB (test code = CK MB) 2.5 0.5-3.6 [facility] [id number] 07:23:00 Test Item Value Reference Range Interpretation Comments Total CK (test code = Total CK) 217 12-191 [facility]2017-08-20 07:23:00 Test Item Value Reference Range Interpretation Comments Magnesium Lvl (test code = Magnesium 1.5 1.8-2.4 Lvl) [facility]2017-08-20 07:23:00 Test Item Value Reference Range Interpretation Comments Phosphorus (test code = Phosphorus) 2.4 2.5-4.5 [facility]2017-08-20 07:23:00 Test Item Value Reference Range Interpretation Comments eGFR (test code = eGFR) 62 [facility]2017-08-20 07:23:00 Test Item Value Reference Range Interpretation Comments CO2 (test code = CO2) 17 24-32 [facility]2017-08-20 07:23:00 Test Item Value Reference Range Interpretation Comments Chloride Lvl (test code = Chloride Lvl) 105 95-109 [facility]2017-08-20 07:23:00 Test Item Value Reference Range Interpretation Comments Calcium Lvl (test code = Calcium Lvl) 6.7 8.5-10.5 [facility]2017-08-20 07:23:00 Test Item Value Reference Range Interpretation Comments AGAP (test code = AGAP) 19.3 10.0-20.0 [facility]2017-08-20 07:23:00 Test Item Value Reference Range Interpretation Comments Potassium Lvl (test code = Potassium 4.3 3.5-5.1 Lvl) [facility]2017-08-20 07:23:00 Test Item Value Reference Range Interpretation Comments BUN (test code = BUN) 13 7-22 [facility]2017-08-20 07:23:00 Test Item Value Reference Range Interpretation Comments Glucose Lvl (test code = Glucose Lvl) 72 70-99 [facility]2017-08-20 07:23:00 Test Item Value Reference Range Interpretation Comments Sodium Lvl (test code = Sodium Lvl) 137 135-145 [facility]2017-08-20 07:23:00 Test Item Value Reference Range Interpretation Comments Creatinine Lvl (test code = Creatinine 1.01 0.50-1.40 Lvl) [facility]asuonyZHYKNOTEBH4275-49-06 07:23:00 Test Item Value Reference Range Interpretation Comments RDW (test code = RDW) 13.6 11.5-14.5 [facility] HospitalKrbsrtePCONXKCQFH1854-05-19 07:23:00 Test Item Value Reference Range Interpretation Comments MCHC (test code = MCHC) 33.7 32.0-36.0 [facility] HospitalEtotsyxHZOTLYYRFE4350-27-35 07:23:00 Test Item Value Reference Range Interpretation Comments MCH (test code = MCH) 34.8 pg 27.0-31.0 [facility] HospitalFfnfzbyEWRCIDFJXO0428-47-81 07:23:00 Test Item Value Reference Range Interpretation Comments MCV (test code = MCV) 103.1 80.0-98.0 [facility] HospitalQoyzqiyPZEFIKFXUV1688-42-90 07:23:00 Test Item Value Reference Range Interpretation Comments RBC (test code = RBC) 3.30 4.20-5.40 [facility] HospitalVijipayDEEZVISUVF7607-83-00 07:23:00 Test Item Value Reference Range Interpretation Comments Hgb (test code = Hgb) 11.5 12.0-16.0 [facility] HospitalJfsuajeURKPPMSNRH1188-68-93 07:23:00 Test Item Value Reference Range Interpretation Comments WBC (test code = WBC) 8.1 3.7-10.4 [facility] HospitalRybqgfuTXXFYBHGQP9096-02-38 07:23:00 Test Item Value Reference Range Interpretation Comments MPV (test code = MPV) 10.0 7.4-10.4 [facility] HospitalMvivhueUTRWHVKVGY3632-06-58 07:23:00 Test Item Value Reference Range Interpretation Comments Platelet (test code = Platelet) 141 133-450 [facility] HospitalAxpkgfqGAZBIQQCRV5514-72-92 07:23:00 Test Item Value Reference Range Interpretation Comments Hct (test code = Hct) 34.0 36.0-48.0 [facility] HospitalPqcxscbVLVJIGMUZI4763-51-48 07:23:00 Test Item Value Reference Range Interpretation Comments Eosinophils # (test code 0.3 See_Comment [A utomated message] The = Eosinophils #) system whic h generated this result tra nsmitted reference range : <=0.5. The reference r hazel was not used to int erpret this result as normal/abnormal . [facility] HospitalRgmuycwFFXAGDRNHT5504-18-82 07:23:00 Test Item Value Reference Range Interpretation Comments Basophils # (test code 0.1 See_Comment [Aut omated message] The = Basophils #) system which generated this result tra nsmitted reference range : <=0.2. The reference r hazel was not used to int erpret this result as normal/abnormal . [facility] HospitalIopmuouSCVEAPDWKZ0987-94-82 07:23:00 Test Item Value Reference Range Interpretation Comments Macrocyte (test code = 1+ *ABN*(07/20/17 Macrocyte) 2:23 AM) [facility] HospitalSxbxzfgAXPNZXRZHB1116-64-88 07:23:00 Test Item Value Reference Range Interpretation Comments Lymphocytes # (test code = Lymphocytes 1.6 1.0-5.5 #) [facility] HospitalRcrzowgMTOXAJPUKH7809-28-30 07:23:00 Test Item Value Reference Range Interpretation Comments Monocytes (test code = Monocytes) 6.2 2.0-12.0 [facility] HospitalShnlftrVAUXGDAHJN8228-36-94 07:23:00 Test Item Value Reference Range Interpretation Comments Eosinophils (test code = 4.0 See_Comment [A utomated message] The Eosinophils) system which ge nerated this result tra nsmitted reference range : <=4.0. The reference r hazel was not used to int erpret this result as normal/abnormal . [facility] HospitalJxvhtqyWLXHTZHLWM1018-46-15 07:23:00 Test Item Value Reference Range Interpretation Comments Basophils (test code = 1.1 See_Comment [Aut omated message] The Basophils) system which ge nerated this result tra nsmitted reference range : <=1.0. The reference r hazel was not used to int erpret this result as normal/abnormal . [facility] HospitalKpghpjvUAFPKDRQAN8389-98-42 07:23:00 Test Item Value Reference Range Interpretation Comments Segs-Bands # (test code = Segs-Bands #) 5.6 1.5-8.1 [facility] HospitalRwsplszPJBSXIKWEE5123-84-58 07:23:00 Test Item Value Reference Range Interpretation Comments Monocytes # (test code 0.5 See_Comment [Aut omated message] The = Monocytes #) system which generated this result tra nsmitted reference range : <=0.8. The reference r hazel was not used to int erpret this result as normal/abnormal . [facility] HospitalIyqmimbMMLOSNLLTM8397-26-26 07:23:00 Test Item Value Reference Range Interpretation Comments Lymphocytes (test code = Lymphocytes) 19.3 20.0-40.0 [facility] HospitalWtrxjnhTCAFFNDTCO8832-40-68 07:23:00 Test Item Value Reference Range Interpretation Comments Segs (test code = Segs) 69.4 45.0-75.0 [facility]2017-08-19 08:48:00 Test Item Value Reference Range Interpretation Comments Phosphorus (test code = Phosphorus) 2.5 2.5-4.5 [facility]2017-08-19 08:48:00 Test Item Value Reference Range Interpretation Comments Magnesium Lvl (test code = Magnesium 1.9 1.8-2.4 Lvl) [facility] HospitalFdypyeyWBXJHWTKDMEL3853-20-31 08:48:00 Test Item Value Reference Range Interpretation Comments CO2 (test code = CO2) 23 24-32 [facility] HospitalRmthqekSSEGSMJBEXXD8177-74-76 08:48:00 Test Item Value Reference Range Interpretation Comments AGAP (test code = AGAP) 13.8 10.0-20.0 [facility] HospitalGbipepdJCVAHGZNEHVQ8913-08-96 08:48:00 Test Item Value Reference Range Interpretation Comments eGFR (test code = eGFR) 70 [facility] HospitalRwfqowmIHBEFLQFHKJK9140-36-07 08:48:00 Test Item Value Reference Range Interpretation Comments BUN (test code = BUN) 22 7-22 [facility] HospitalSyhzzmrHUCJMZBEMFOF7234-70-75 08:48:00 Test Item Value Reference Range Interpretation Comments Chloride Lvl (test code = Chloride Lvl) 104 95-109 [facility] HospitalTbitmnrLHHRXODRHXNV8038-43-77 08:48:00 Test Item Value Reference Range Interpretation Comments Potassium Lvl (test code = Potassium 3.8 3.5-5.1 Lvl) [facility] HospitalBnkercaQMRCDXHTFAUQ8835-68-89 08:48:00 Test Item Value Reference Range Interpretation Comments Sodium Lvl (test code = Sodium Lvl) 137 135-145 [facility] HospitalYzucjvpHZIEZOUAWXND6833-72-82 08:48:00 Test Item Value Reference Range Interpretation Comments Creatinine Lvl (test code = Creatinine 0.91 0.50-1.40 Lvl) [facility] HospitalIktrovgDKAIZVCHRZEV5120-25-03 08:48:00 Test Item Value Reference Range Interpretation Comments Glucose Lvl (test code = Glucose Lvl) 156 70-99 [facility] HospitalKfrnbwwXWKCKEGRVT7418-76-05 08:48:00 Test Item Value Reference Range Interpretation Comments WBC (test code = WBC) 10.8 3.7-10.4 [facility] HospitalVothnstKKZKOOLMDW2433-38-84 08:48:00 Test Item Value Reference Range Interpretation Comments RBC (test code = RBC) 3.33 4.20-5.40 [facility] HospitalVgmthhdXQPJLXVJNC5213-20-02 08:48:00 Test Item Value Reference Range Interpretation Comments Hgb (test code = Hgb) 11.6 12.0-16.0 [facility] HospitalWqwgpcpAMQNVYZNXZ3720-92-11 08:48:00 Test Item Value Reference Range Interpretation Comments Hct (test code = Hct) 34.2 36.0-48.0 [facility] HospitalXjkwdazUVCYAQSVJX8901-92-43 08:48:00 Test Item Value Reference Range Interpretation Comments MCHC (test code = MCHC) 34.1 32.0-36.0 [facility] HospitalApjysmmDTRIAAPELX0518-78-20 08:48:00 Test Item Value Reference Range Interpretation Comments MCV (test code = MCV) 102.5 80.0-98.0 [facility] HospitalKpyybhpMDBKLHOAWS0159-01-93 08:48:00 Test Item Value Reference Range Interpretation Comments MCH (test code = MCH) 34.9 pg 27.0-31.0 [facility] HospitalTgvpibbJVTPOCCTMU1298-30-77 08:48:00 Test Item Value Reference Range Interpretation Comments Platelet (test code = Platelet) 142 133-450 [facility] HospitalReljgeiTCJDUXDGEZ6881-00-96 08:48:00 Test Item Value Reference Range Interpretation Comments MPV (test code = MPV) 10.3 7.4-10.4 [facility] HospitalVmjbbovNPYMJZLNMY0853-71-05 08:48:00 Test Item Value Reference Range Interpretation Comments RDW (test code = RDW) 13.6 11.5-14.5 [facility] HospitalUmtdlafMUJBNVECUO9690-21-21 08:48:00 Test Item Value Reference Range Interpretation Comments Eosinophils (test code = 2.8 See_Comment [A utomated message] The Eosinophils) system which ge nerated this result tra nsmitted reference range : <=4.0. The reference r hazel was not used to int erpret this result as normal/abnormal . [facility] HospitalEjcklhiNBKVLAWWEL9460-62-40 08:48:00 Test Item Value Reference Range Interpretation Comments Basophils (test code = 0.5 See_Comment [Aut omated message] The Basophils) system which ge nerated this result tra nsmitted reference range : <=1.0. The reference r hazel was not used to int erpret this result as normal/abnormal . [facility] HospitalFnoivftUXZQZATFIN5754-70-15 08:48:00 Test Item Value Reference Range Interpretation Comments Monocytes (test code = Monocytes) 6.5 2.0-12.0 [facility] HospitalMgyphehZRRPRRWFZA9347-52-81 08:48:00 Test Item Value Reference Range Interpretation Comments Macrocyte (test code = 1+ *ABN*(07/19/17 Macrocyte) 3:48 AM) [facility] HospitalRfxzxqlBGMAELDELF5419-21-01 08:48:00 Test Item Value Reference Range Interpretation Comments Segs (test code = Segs) 83.0 45.0-75.0 [facility] HospitalYyujioyOZTEDPNUXZ3976-34-31 08:48:00 Test Item Value Reference Range Interpretation Comments Lymphocytes (test code = Lymphocytes) 7.2 20.0-40.0 [facility] HospitalNzgbcgdMUHKPUGLMK9715-47-75 08:48:00 Test Item Value Reference Range Interpretation Comments Monocytes # (test code 0.7 See_Comment [Aut omated message] The = Monocytes #) system which generated this result tra nsmitted reference range : <=0.8. The reference r hazel was not used to int erpret this result as normal/abnormal . [facility] HospitalHzxngpeHBXMSJFACJ8447-21-21 08:48:00 Test Item Value Reference Range Interpretation Comments Eosinophils # (test code 0.3 See_Comment [A utomated message] The = Eosinophils #) system whic h generated this result tra nsmitted reference range : <=0.5. The reference r hazel was not used to int erpret this result as normal/abnormal . [facility] HospitalRadzyemCBJHOIZJEZ1098-77-48 08:48:00 Test Item Value Reference Range Interpretation Comments Segs-Bands # (test code = Segs-Bands #) 9.0 1.5-8.1 [facility] HospitalTktifgdPFXWMHXZRO1600-93-15 08:48:00 Test Item Value Reference Range Interpretation Comments Lymphocytes # (test code = Lymphocytes 0.8 1.0-5.5 #) [facility] HospitalQbjnjuqCSOPQYGNGO4864-30-61 08:48:00 Test Item Value Reference Range Interpretation Comments Basophils # (test code 0.1 See_Comment [Aut omated message] The = Basophils #) system which generated this result tra nsmitted reference range : <=0.2. The reference r hazel was not used to int erpret this result as normal/abnormal . [employer] FGDNIEB4015-78-44 08:48:00 Test Item Value Reference Range Interpretation Comments Ca Ion WB (test code = Ca Ion WB) 1.00 1.05-1.25 [facility] [employer] TURRDNV7641-15-24 08:48:00 Test Item Value Reference Range Interpretation Comments Ca Norm WB (test code = Ca Norm WB) 1.02 1.05-1.25 [employer] NWFLMOY1840-89-24 10:33:00 Test Item Value Reference Range Interpretation Comments Antibody Scrn (test Negative (07/18/17 5:33 code = Antibody Scrn) AM) [facility] [employer] KIBWRAR0587-55-17 10:33:00 Test Item Value Reference Range Interpretation Comments ABO/Rh (test code = ABO/Rh) O POS [facility] OwcwnfwHFTNYSEHED1200-48-30 10:33:00 Test Item Value Reference Range Interpretation Comments PTT (test code = PTT) 29.2 s 22.9-35.8 [facility] VuunraoKZMSLZHEJV6227-36-02 10:33:00 Test Item Value Reference Range Interpretation Comments PT (test code = PT) 13.5 s 12.0-14.7 [facility] UgupcgqNEZGOBGVGS9585-26-13 10:33:00 Test Item Value Reference Range Interpretation Comments INR (test code = INR) 1.01 0.85-1.17 [facility] [employer]2017-08-17 08:50:00 Test Item Value Reference Range Interpretation Comments Total CK (test code = Total CK) 547 12-191 [facility] [employer]2017-08-17 08:50:00 Test Item Value Reference Range Interpretation Comments CK MB Index (test 1.0 See_Comment [Automate d message] The code = CK MB Index) system w [facility] generated this result transmit terry reference range : <=2.5. The reference range was not used to interpr et this result as maria luz l/abnormal. [employer]2017-08-17 08:50:00 Test Item Value Reference Range Interpretation Comments CK MB (test code = CK MB) 5.3 0.5-3.6 [facility] Hit[facility] EQNJNTH4307-68-98 08:50:00 Test Item Value Reference Range Interpretation Comments Troponin-I (test code 17.30 See_Comment [Auto mated message] The = Troponin-I) system which g enerated this result transmit terry reference range : <=0.40. The reference r hazel was not used to interpr et this result as maria luz l/abnormal. [facility] IQSZOWR5583-30-52 08:50:00 Test Item Value Reference Range Interpretation Comments Troponin-T (test code 3.050 See_Comment [Auto mated message] The = Troponin-T) system which g enerated this result transmit terry reference range : <=0.100. The reference r hazel was not used to interpr et this result as maria luz l/abnormal. [facility]enton[facility] PQXRP8933-25-07 14:29:00 Test Item Value Reference Range Interpretation Comments Procalcitonin Lvl (test 0.06 See_Comment [Au tomated message] code = Procalcitonin Lvl) Th e system which generated this result transmitted ref erence range: <=0.10. The reference range was not used to interpr et this result as normal/abnormal . [facility] HospitalXryesnnMMEQHJUFVJ2759-69-06 08:04:00 Test Item Value Reference Range Interpretation Comments Large Plt (test code = Large Plt) Slight [facility] HospitalEolpqrkFJXSDKQJLR1455-21-30 08:04:00 Test Item Value Reference Range Interpretation Comments INR (test code = INR) 1.07 0.85-1.17 [facility] DentonJuswywhLHWKGXDXWR1539-12-32 08:04:00 Test Item Value Reference Range Interpretation Comments PTT (test code = PTT) 29.6 s 22.9-35.8 [facility] DentonRhvdnroAOIZMGIZBK7801-89-38 08:04:00 Test Item Value Reference Range Interpretation Comments PT (test code = PT) 14.1 s 12.0-14.7 [facility] ATWZRMC8421-79-63 22:16:00 Test Item Value Reference Range Interpretation Comments proBNP (test code = 6141 See_Comment [Automa terry message] The proBNP) system which ge nerated this result tra nsmitted reference range : <=125. The reference r hazel was not used to int erpret this result as maria luz l/abnormal. [employer] [id number] 22:16:00 Test Item Value Reference Range Interpretation Comments BNP (test code = BNP) 144 [facility] [employer] NHAAJFV8427-86-61 17:42:00 Test Item Value Reference Range Interpretation Comments Antibody Scrn (test Negative (07/15/17 code = Antibody Scrn) 12:42 PM) [facility] [employer] [id number] 17:42:00 Test Item Value Reference Range Interpretation Comments ABO/Rh (test code = ABO/Rh) O POS [facility] [employer] AZLPUFW7344-44-70 05:02:00 Test Item Value Reference Range Interpretation Comments Troponin-I (test >40 ng/mL See_Comment [Automated message] The code = Troponin-I) system wh ich generated this result tra nsmitted reference range : <=0.40. The reference r hazel was not used to int erpret this result as normal/abnormal . [facility] [employer] TFPCSDI9702-77-01 05:02:00 Test Item Value Reference Range Interpretation Comments BNP (test code = BNP) 280 [facility] [employer]SPE[employer] QTDSGRTAY7801-71-97 05:02:00 Test Item Value Reference Range Interpretation Comments Hgb A1C (test code = Hgb A1C) 11.1 [facility] DentonStudyBlueBACTERIAL - [id number] 18:44:00 Test Item Value Reference Range Interpretation Comments MRSA by PCR (test Negative (07/14/17 1:44 code = MRSA by PCR) PM) [facility]
[2022-12-25 00:51] LABS: Absolute Lymphocytes (CBC) 2.5 K/uL (0.7-4.9); Hematocrit 44.5 % (36.0-45.0); Lymphocytes % 45.5 % (15.3-44.8); MCV 96.8 fL (80-100); MPV 9.1 fL (7.6-11.3); RBC Red Blood Cell Count 4.59 M/uL (3.86-4.86)
[2022-12-25 01:16] LABS: BUN Blood Urea Nitrogen 18 mg/dL (7-18); Bicarbonate 31 mmol/L (21-32); Glomerular Filtration Rate 66 ml/min (=/>90); Glucose Level 294 mg/dL (74-106); Potassium 3.7 mmol/L (3.5-5.1); Sodium Level 141 mmol/L (136-145)
[2022-12-25 01:39] LABS: Protime INR 0.95
[2022-12-25 01:40] LABS: SARS-CoV-2 Antigen Rapid Res Negative (Negative)
--- NOTE | 2022-12-25 01:46 | EDPHYS ---
Physician Documentation [facility] Name: Hue Hernandez Age: 62 yrs Sex: Female : 1960 Arrival Date: 12/25/2022 Time: 00:10 Bed 23 Private MD: ED Physician Dejuan Pool HPI: 12/25 01:10 This 62 yrs old Female presents to ER via Ambulatory with complaints of rectal bleeding.rn 01:11 The patient presents to the emergency department with rectal bleeding, a moderate rn amount, bright red blood with bowel movement, in toilet bowl, with multiple such episodes, 2 times since symptom onset. Onset: The symptoms/episode began/occurred yesterday. Abdominal pain: none is appreciated. Modifying factors: The symptoms are alleviated by nothing, the symptoms are aggravated by nothing. Severity of symptoms: At their worst the symptoms were moderate in the emergency department the symptoms are unchanged. The patient has not experienced similar symptoms in the past. Historical: - Allergies: 00:40 Niacin; pf1 - PMHx: 00:40 Diabetes - IDDM; High Cholesterol; Myocardial infarction; pf1 - PSHx: 00:40 cardiac stents; pf1 - Immunization history:: Adult Immunizations up to date, Client reports receiving the 2nd dose of the Covid vaccine, Last tetanus immunization: < 10 years ago Flu vaccine is up to date. - Social history:: Smoking status: Patient denies any tobacco usage or history of. Patient/guardian denies using alcohol, street drugs. - Family history:: not pertinent. - Hospitalizations: : No recent hospitalization is reported. ROS: 01:11 Constitutional: Negative for fever, chills, and weight loss, Cardiovascular: Negative rn for chest pain, palpitations, and edema, Respiratory: Negative for shortness of breath, cough, wheezing, and pleuritic chest pain, Abdomen/GI: Negative for abdominal pain, nausea, vomiting, diarrhea, and constipation, MS/Extremity: Negative for injury and deformity, Skin: Negative for injury, rash, and discoloration, Neuro: Negative for headache, weakness, numbness, tingling, and seizure. Exam: 01:11 Constitutional: This is a well developed, well nourished patient who is awake, alert, rn and in no acute distress. Cardiovascular: Regular rate and rhythm. No pulse deficits. Respiratory: No increased work of breathing, no retractions or nasal flaring. Abdomen/GI: soft, non-tender, no peritoneal signs, + gross maroon blood on rectal exam. Skin: Warm, dry Vital Signs: 00:35 BP 152 / 82; Pulse 91; Resp 18; Temp 98; Pulse Ox 97% on R/A; Pain 0/10; pf1 00:51 Weight 79.38 kg; Height 5 ft. 9 in. (175.26 cm); pf1 01:17 BP 132 / 80; Pulse 88; Resp 18 S; Pulse Ox 95% on R/A; Pain 0/10; as6 00:51 Body Mass Index 25.84 (79.38 kg, 175.26 cm) pf1 MDM: 00:12 Patient medically screened. rn 01:43 Differential diagnosis: diverticulitis, hemorrhoids, diverticulosis, colitis, colon rn cancer. Data reviewed: vital signs, nurses notes, lab test result(s), and as a result, I will admit patient. Counseling: I had a detailed discussion with the patient and/or guardian regarding: the historical points, exam findings, and any diagnostic results supporting the discharge/admit diagnosis, lab results, the need for further work-up and treatment in the hospital. ED course: Pt with gross rectal bleeding, normal h/h and stable vitals, but does not seem to be stopping and on plavix. Will admit to Dr. Rodriguez with Dr. Peguero consult in AM. . 02:31 ED course: Pt is a patient of Dr. Peguero's and has had a colonoscopy with him before, rn normal h/h and vitals, no indication for emergent transfer. . 12/25 00:12 Order name: Basic Metabolic Panel; Complete Time: 04: rn 12/25 00:12 Order name: CBC with Diff; Complete Time: rn 12/25 00:52 Order name: Protime (+inr); Complete Time: rn 12/25 00:52 Order name: Ptt, Activated; Complete Time: rn 12/25 00:52 Order name: Type And Screen; Complete Time: 04:21 rn 12/25 00:52 Order name: SARS RAPID; Complete Time: rn 12/25 01:33 Order name: Liver (Hepatic) Function; Complete Time: 04:21 EDMS 12/25 01:33 Order name: Lipase; Complete Time: 04:21 EDTX 12/25 01:55 Order name: ABO/RH no charge; Complete Time: 04:21 EDTX 12/25 05:51 Order name: Hemoglobin; Complete Time: 06:36 EDMS 12/25 10:34 Order name: Hemoglobin EDTX 12/25 00:12 Order name: IV Saline Lock; Complete Time: 00:51 rn 12/25 00:12 Order name: Labs collected and sent; Complete Time: 00:51 rn 12/25 00:52 Order name: CT Abd/Pelvis - IV Contrast Only rn 12/25 11:59 Order name: Glucose, Ancillary Testing EDTX 12/25 16:50 Order name: Glucose, Ancillary Testing EDTX 12/25 20:34 Order name: Glucose, Ancillary Testing EDTX 12/26 04:09 Order name: CBC with Automated Diff EDTX 12/26 04:23 Order name: Basic Metabolic Panel EDTX 12/26 04:23 Order name: Magnesium EDTX 12/26 07:35 Order name: Glucose, Ancillary Testing EDTX 12/26 12:27 Order name: Glucose, Ancillary Testing EDTX Administered Medications: No medications were administered Disposition Summary: 12/25/22 01:45 Hospitalization Ordered Hospitalization Status: Observation rn Provider: Esther Rodriguez rn Condition: Stable rn Problem: new rn Symptoms: have improved rn Bed/Room Type: Standard rn Location: Telemetry/MedSur (observation)(12/26/22 13:21) dw Room Assignment: 201(12/26/22 13:21) dw Diagnosis - GI Bleed/ Gastrointestinal hemorrhage, unspecified rn Forms: - Medication Reconciliation Form rn - SBAR form rn Signatures: Dispatcher [employer] [facility] Britney Love RN Dejuan Sánchez MD MD rn Garcia, Cindy, RN RN cg finley, Pamala, RN RN pf1 Corrections: (The following items were deleted from the chart) 00:51 00:12 Urine Dipstick-Ancillary ordered. rn as6 01:11 00:13 Pelvis Complete+US.RAD.BRZ ordered. EDTX EDTX : 00:52 COMPREHENSIVE METABOLIC PANEL+C.LAB.BRZ ordered. EDTX EDTX 01:32 00:52 LIPASE+C.LAB.BRZ ordered. EDMS EDMS 01:32 01:26 Liver (Hepatic) Function ordered. EDMS EDMS 02:40 01:45 Telemetry/MedSurg (observation) rn 02:40 01:45 rn cg 12/26 13:21 12/25 02:40 BR ER [facility] cg dw 12/26 13:12/25 02:40 ERHOLD- dw
--- NOTE | 2022-12-25 01:46 | ER ---
Nurse's Notes [facility] Name: Hue Hernandez Age: 62 yrs Sex: Female : 1960 Arrival Date: 12/25/2022 Time: 00:10 Bed 23 Private MD: Diagnosis: GI Bleed/ Gastrointestinal hemorrhage, unspecified Presentation: 12/25 00:35 Chief complaint: Patient states: C/O possible rectal bleeding with clots,onset Friday. pf1 Patient stated is not for sure if it is vaginal or rectal bleeding, but thinks rectal. Patient denies any pain at this time. Patient stated did have some lower abdominal pain 1 week ago that resolved. Patient stated currently has a cough,onset 11/24/22. Coronavirus screen: Vaccine status: Patient reports receiving the 2nd dose of the covid vaccine. Client denies travel out of the [place] in the last 14 days. Client presents with at least one sign or symptom that may indicate coronavirus-19. Standard/surgical mask placed on the client. Ebola Screen: Patient negative for fever greater than or equal to 101.5 degrees Fahrenheit, and additional compatible Ebola Virus Disease symptoms. Initial Sepsis Screen: Does the patient meet any 2 criteria? No. Patient's initial sepsis screen is negative. Does the patient have a suspected source of infection? No. Patient's initial sepsis screen is negative. Risk Assessment: Do you want to hurt yourself or someone else? Patient reports no desire to harm self or others. Onset of symptoms was December 22, 2022. 00:35 Method Of Arrival: Ambulatory pf1 00:35 Acuity: TAYLOR 3 pf1 Historical: - Allergies: 00:40 Niacin; pf1 - PMHx: 00:40 Diabetes - IDDM; High Cholesterol; Myocardial infarction; pf1 - PSHx: 00:40 cardiac stents; pf1 - Immunization history:: Adult Immunizations up to date, Client reports receiving the 2nd dose of the Covid vaccine, Last tetanus immunization: < 10 years ago Flu vaccine is up to date. - Social history:: Smoking status: Patient denies any tobacco usage or history of. Patient/guardian denies using alcohol, street drugs. - Family history:: not pertinent. - Hospitalizations: : No recent hospitalization is reported. Screenin:16 [facility] ED Fall Risk Assessment (Adult) Score/Fall Risk Level 0 - 2 = Low Risk. Abuse as6 screen: Denies threats or abuse. Denies injuries from another. Nutritional screening: No deficits noted. Tuberculosis screening: No symptoms or risk factors identified. Assessment: 01:00 General: Appears in no apparent distress. Behavior is calm, cooperative, Reports as6 fatigue for. Pain: Denies pain. Neuro: Level of Consciousness is awake, alert, obeys commands, Oriented to person, place, time, situation. Cardiovascular: Capillary refill < 3 seconds Patient's skin is warm and dry. Respiratory: Respiratory effort is even, unlabored, Respiratory pattern is regular, symmetrical. GI: Reports rectal bleeding, bloody stool. Vital Signs: 00:35 BP 152 / 82; Pulse 91; Resp 18; Temp 98; Pulse Ox 97% on R/A; Pain 0/10; pf1 00:51 Weight 79.38 kg; Height 5 ft. 9 in. (175.26 cm); pf1 01:17 BP 132 / 80; Pulse 88; Resp 18 S; Pulse Ox 95% on R/A; Pain 0/10; as6 00:51 Body Mass Index 25.84 (79.38 kg, 175.26 cm) pf1 ED Course: 00:10 Patient arrived in ED. ja2 00:12 Dejuan Pool MD is Attending Physician. rn 00:22 Derrick Burns, JANA is Primary Nurse. as6 00:40 Triage completed. pf1 00:41 Inserted saline lock: 20 gauge in left antecubital area, using aseptic technique. Blood rv1 collected. 01:05 Inserted saline lock: 20 gauge in right forearm, using aseptic technique. Blood as6 collected. 01:13 SARS RAPID Sent. as6 01:13 Type And Screen Sent. as6 01:13 Ptt, Activated Sent. as6 01:13 Protime (+inr) Sent. as6 01:14 Arm band placed on. as6 01:15 Placed in gown. Bed in low position. Call light in reach. Side rails up X 1. Adult w/ as6 patient. Pulse ox on. NIBP on. Warm blanket given. 01:44 Esther Rodriguez MD is Hospitalizing Provider. rn 01:52 CT Abd/Pelvis - IV Contrast Only In Process Unspecified. EDMS 01:55 No provider procedures requiring assistance completed. Patient admitted, IV remains in as6 place. 12/26 07:07 Primary Nurse role handed off by Derrick Burns, JANA bp 07:07 Prateek Pappas, RN is Primary Nurse. bp Administered Medications: No medications were administered Medication: 12/25 01:16 VIS not applicable for this client. as6 Outcome: 01:45 Decision to Hospitalize by Provider. rn 01:55 Admitted to ER Hold. Please see [facility] for further documentation. as6 01:55 Condition: stable 01:55 Instructed on the need for admit. 12/26 15:39 Patient left the ED. bp Signatures: Dispatcher [employer] EDMS Dejuan Pool MD MD rn Peltier, Brian, RN RN Carla Vuong Ashby, JANA RN as6 Jodi caban RN RN pf1 Devora Jauregui [facility]
[2022-12-25 01:57] LABS: ALT/SGPT 24 U/L (13-56); AST/SGOT 6 U/L (15-37); Albumin 3.7 g/dL (3.4-5.0); Alkaline Phosphatase 76 U/L (45-117); Bilirubin Direct < 0.1 mg/dL (0-0.2); Bilirubin Total 0.2 mg/dL (0.2-1.0); Lipase 96 U/L (73-393); Protein, Total 7.7 g/dL (6.4-8.2)
[2022-12-25] MEDS ORDERED: ONDANSETRON 4 MG/2 ML VIAL IV PRN (02:38)
[2022-12-25] MEDS ORDERED: D5.45NS W/KCL 20MEQ 1,000 ML IV SCH (03:00)
[2022-12-25] MEDS ORDERED: D5.45NS W/KCL 20MEQ 1,000 ML IV ONE (03:20)
[2022-12-25 03:54] VITALS: BMI 25.8
[2022-12-25] MEDS ORDERED: D50W 25 GM/50 ML SYRINGE IV PRN (07:36)
[2022-12-25] MEDS ORDERED: GLUCAGON 1 MG/VIAL IM PRN (07:36)
[2022-12-25] MEDS ORDERED: D10W 125 ML IV PRN (07:43)
[2022-12-25] MEDS ORDERED: CIPROFLOXACIN 400mg IV 400 MG/200 ML BAG IV ONE ×2 (08:47→21:33)
[2022-12-25] MEDS ORDERED: METRONIDAZOLE 500mg IVPB 500 MG/100 ML BAG IV ONE ×2 (08:48→16:49)
[2022-12-25] MEDS: CIPROFLOXACIN 400mg IV 400 MG/200 ML BAG IV SCH ×2 (09:00→21:44)
[2022-12-25] MEDS: METRONIDAZOLE 500mg IVPB 500 MG/100 ML BAG IV SCH ×2 (09:00→17:00)
[2022-12-25] MEDS: INSULIN -REGULAR HUMAN 50 UNIT/0.5 ML ML SQ SCH ×3 (11:30→21:00)
[2022-12-25] MEDS ORDERED: INSULIN -REGULAR HUMAN 50 UNIT/0.5 ML ML ONE ×2 (11:58→21:43)
--- NOTE | 2022-12-25 13:14 | RAD REPORT ---
EXAM DESCRIPTION: CT - Abdomen Pelvis W Contrast - 12/25/2022 6:37 am CLINICAL HISTORY: Rectal bleeding TECHNIQUE: Axial computed tomography images of the abdomen and pelvis with intravenous contrast. S agittal and coronal reformatted images were created and reviewed. This CT exam was performed using one or more of the following dose reduction techniques: automated exposure control, adjustment of t he mA and/or kV according to patient size, and/or use of iterative reconstruction technique. COMPARISON: No relevant prior studies available. FINDINGS: Lung bases: Bibasilar subsegmental atelectasis/pleural parenchymal scar. Heart: Coronary artery calcification. Mediastinum: Small hiatal hernia. ABDOMEN: Liver: 1.9 cm cyst at the hepatic dome. No follow-up imaging is necessary. Gallbladder and bile ducts: Unremarkable. No calcified stones. No ductal dilation. Pancreas: Unremarkable. No mass. No ductal dilation. Spleen: Unremarkable. No splenomegaly. Adrenals: Unremarkable. No mass. Kidneys and ureters: Unremarkable. No solid mass. No hydronephrosis. Stomach and bowel: Moderate stool within the proximal to mid large bowel. Colonic diverticula wit hout adjacent inflammatory change. There are curvilinear hyperdense foci within the sigmoid colon ( series 501 images 69 through 72 and series 502 images 67 through 76). No mucosal thickening. PELVIS: Appendix: Normal caliber appendix. No findings to suggest acute appendicitis. Bladder: Unremarkable. No mass. Reproductive: Unremarkable as visualized. ABDOMEN and PELVIS: Intraperitoneal space: Unremarkable. No free air. No significant fluid collection. Bones/joints: No acute fracture. No dislocation. Soft tissues: Unremarkable. Vasculature: Mild to moderate atherosclerotic disease. Lymph nodes: Unremarkable. No enlarged lymph nodes. IMPRESSION: 1. Curvilinear hyperdense foci within the lumen of the sigmoid colon. Although diffi cult to confirm as no precontrast imaging was performed, findings may be related to areas of active b leeding. 2. Other findings as above. THIS REPORT CONTAINS FINDINGS THAT MAY BE CRITICAL TO PATIENT CARE: The findings were verbally discu ssed via telephone conference with Dr. Dejuan Pool on 12/25/2022 2:15 AM ENTRY LEVEL ELECTRICIAN. The results were acknowl edged and understood. Electronically signed by: Alice Cortez MD 12/25/2022 2:17 AM ENTRY LEVEL ELECTRICIAN Due to temporary technical issues with the PACS/Fluency reporting system, reports are being signed by the in house radiologists without review as a courtesy to insure prompt reporting. The interpreting radiologist is fully responsible for the content of the report.
[2022-12-26] MEDS: METRONIDAZOLE 500mg IVPB 500 MG/100 ML BAG IV SCH ×3 (01:00→17:04)
[2022-12-26] MEDS ORDERED: METRONIDAZOLE 500mg IVPB 500 MG/100 ML BAG IV ONE ×2 (01:44→08:33)
[2022-12-26 04:06] LABS: Hematocrit 38.6 % (36.0-45.0); Lymphocytes % 33.6 % (15.3-44.8); MCV 96.9 fL (80-100); MPV 9.5 fL (7.6-11.3); RBC Red Blood Cell Count 3.98 M/uL (3.86-4.86)
[2022-12-26 04:19] LABS: Magnesium 2.4 mg/dL (1.6-2.4); Potassium 3.6 mmol/L (3.5-5.1)
[2022-12-26] MEDS: INSULIN -REGULAR HUMAN 50 UNIT/0.5 ML ML SQ SCH ×4 (07:30→20:58)
[2022-12-26] MEDS: LEVOTHYROXINE SOD 0.1 MG TAB PO SCH (07:45)
--- NOTE | 2022-12-26 08:13 | HP ---
Date of Admission: 12/25/2022 Chief Complaint: Bleeding per rectum and abdominal pain. History Of Present Illness: This is a 62-year-old very pleasant female patient, who had some blood i n stool about 7-10 days ago and after a day or so, it subsided and she did not have any complaints un til 2 days ago, she started to have this bright red blood mixed with stool and this was rather large amount as she reported with a bowel movement. She also had some left lower quadrant abdominal discom fort with this. Denies any fever, chills. No nausea, no vomiting. No change in her bowel habits la tely. With this increase her rectal bleeding, she came into emergency room and after she was evaluat ed in the ER, she was admitted to the hospital. Allergies: TO NIACIN CAUSING RASH. Medications: She takes aspirin 81 mg daily, clopidogrel 75 mg daily, carvedilol 3.125 mg daily at be dtime, Jardiance 25 mg daily, Basaglar insulin she takes 50 units subcutaneous injection daily and sh e also takes NovoLog insulin 8 units 3 times a day with meal, rosuvastatin 40 mg daily in the evening , metformin 500 mg daily in the evening with meal, levothyroxine 50 mcg daily. Review of Systems: GI: As mentioned above. All other systems reviewed and negative. Past Medical History: Significant for hypothyroidism, type 2 diabetes mellitus, mixed hyperlipidemia , coronary artery disease, history of myocardial infarction July 14, 2017, diverticulosis, chronic kidney disease, hiatal hernia. Past Surgical History: Coronary artery angioplasty with stent placement July 14, 2017 and right an kle surgery. Family History: Father had diabetes and stroke. Mother had coronary artery disease, hypertension, a nd stroke. Sister has hypothyroidism. Social History: Negative for smoking and alcohol use. Physical Examination: Vital Signs: Height 5 feet inches, weight pounds, temperature , puls e , respiratory rate , blood pressure , oxygen saturation . General: Awake, alert, oriented, not in distress. HEENT: Head atraumatic, normocephalic. Conjunctivae nonerythematous. Sclerae white. Mouth, no thr ush or edema noted. Ears/Nose, no mass, lesion, discharge noted. Neck: Supple. No JVD, lymph nodes, bruit, thyromegaly noted. Lungs: Bilateral good equal air entry. Clear to auscultation. No rhonchi. No rales. Heart: Normal heart sounds, no murmur or gallop. Abdomen: Soft, bowel sounds normal. No guarding, rigidity, tenderness, mass, hepatosplenomegaly, dis tention, or bruit noted. Extremities: No leg edema. No calf tenderness. Skin: No rash, ulcer, cellulitis. Lymphatics: No lymph node enlargement in neck, supraclavicular, infraclavicular region. Neuro: No focal neurological deficit. Chest: Unremarkable. External Genitalia: Deferred. Rectal: Deferred. Laboratory Data: WBC 5.5, hemoglobin 14.9, platelets 228. Repeat hemoglobin early this morning was 12.9. Sodium 141, potassium 3.7, chloride 103, bicarb 31, BUN 18, creatinine 0.96, glucose 294. Shante er function tests unremarkable. Lipase 96. COVID-19 test negative. Pro-time 10.5, INR 0.95, PTT 26 .1. CAT scan of the abdomen and pelvis done in emergency room shows no acute findings. Presence of what appears to be is blood in her sigmoid colon area could be due to active to GI bleeding in that p articular location. Impression: 1.Lower gastrointestinal bleeding. 2.Diverticulosis. 3.Mixed hyperlipidemia. 4.Coronary artery disease. 5.Chronic anti-platelet therapy. 6.Hypothyroidism. 7.Type 2 diabetes mellitus. Plan: We will go ahead and admit the patient to hospital for further evaluation and management of th is problem. The patient is appropriate for inpatient and [facility] We will consult her family member caretaker, Dr. Peguero. We will monitor serial hemoglobin. Andrew mo, she is stable at this point. Different possible causes of lower GI bleeding explained to he r including very likely possibility of diverticular bleed that we probably dealing with. We will sta rt empiric antibiotics, Cipro and metronidazole as per order. Start her on clear liquid diet and the patient will definitely need colonoscopy and timing of the colonoscopy will be decided depending on her hospital course. We will hold her anti-platelet therapy and at appropriate time we will restart aspirin, but we will not start clopidogrel at this point. Continue her statin therapy for hyperlipid emia. Diabetes will be managed with sliding scale insulin per order. DVT prophylaxis will be given using SCD. Details and plan of treatment discussed with the patient. I will see her tomorrow for abdifatah aragon. BRIEN/MODL Voice ID: [id number]
[2022-12-26] MEDS ORDERED: CIPROFLOXACIN 400mg IV 400 MG/200 ML BAG IV ONE (08:33)
[2022-12-26] MEDS: CIPROFLOXACIN 400mg IV 400 MG/200 ML BAG IV SCH ×2 (09:00→20:58)
[2022-12-26] MEDS ORDERED: INSULIN -REGULAR HUMAN 50 UNIT/0.5 ML ML ONE (12:26)
[2022-12-26] MEDS ORDERED: ROSUVASTATIN 10 MG TAB PO SCH (21:00)
[2022-12-26 23:23] LABS: Hepatitis B Core IgM Nonreactive (Nonreactive); Hepatitis C Virus Ab Nonreactive (Nonreactive)
[2022-12-26 23:24] LABS: Hepatitis B Surface Ab - Quant < 3.10 mIU/mL (<8.0)
[2022-12-27] MEDS: METRONIDAZOLE 500mg IVPB 500 MG/100 ML BAG IV SCH ×2 (01:45→08:41)
[2022-12-27 06:03] VITALS: O2SAT 94
[2022-12-27 06:22] LABS: Absolute Lymphocytes (CBC) 2.4 K/uL (0.7-4.9); MCV 98.6 fL (80-100); RBC Red Blood Cell Count 4.26 M/uL (3.86-4.86)
[2022-12-27 06:31] LABS: Potassium 4.1 mmol/L (3.5-5.1)
[2022-12-27] MEDS: LEVOTHYROXINE SOD 0.1 MG TAB PO SCH (06:37)
--- NOTE | 2022-12-27 08:04 | PN ---
Date of Progress Note: 12/26/2022 Subjective: The patient was seen this morning for followup. She was lying in bed, not in distress. Denies any more bleeding per rectum. No abdominal pain. No nausea. No vomiting. She tolerated cl ear liquid diet very well. Vital signs reviewed. Physical Examination: HEENT: Unremarkable. Lungs: Clear to auscultation. Heart: Sounds normal. Abdomen: Soft. Bowel sounds normal. No guarding, rigidity, tenderness, distention. Extremities: No leg edema. Laboratory Data: White count 6, hemoglobin 13, platelets 194. Sodium 142, potassium 3.6, chloride 1 08, bicarb 27, BUN 10, creatinine 0.62, glucose 117, magnesium 2.4. Fingerstick blood sugar readings reviewed. Impression: 1.Lower gastrointestinal bleeding. 2.Possible diverticular bleed. 3.Coronary artery disease. 4.Hyperlipidemia. 5.Diabetes mellitus. Plan: We will go ahead and advance diet from clear liquid diet to soft diet. Continue current empir ic antibiotics. Ambulation was encouraged and I will see her tomorrow for followup. Possible dischar ge to go home tomorrow. BRIEN/MODL Voice ID: [id number] Report ID: [id number]
[2022-12-27] MEDS: CIPROFLOXACIN 400mg IV 400 MG/200 ML BAG IV SCH (08:46)
[2022-12-27] MEDS: INSULIN -REGULAR HUMAN 50 UNIT/0.5 ML ML SQ SCH (08:48)
[2022-12-27 09:07] VITALS: BP 95/65; TEMP 97
--- NOTE | 2022-12-27 12:40 | DS ---
Date of Discharge: 12/27/2022 Disposition: Discharged to go home. Physical Examination: HEENT: Unremarkable. Lungs: Clear to auscultation. Heart: Sounds normal. Abdomen: Soft. Bowel sounds normal. No guarding, rigidity, tenderness, distention. Extremities: No leg edema. Laboratory Data: Upon admission on 12/25/2022; white count 5.5, hemoglobin 14.9, platelets 228. Tod ay; white count 6.9, hemoglobin 13.7, platelets 184. Today chemistry; sodium 139, potassium 4.1, chl oride 105, bicarb 29, BUN 20, creatinine 0.78, glucose 171. Upon admission; sodium 141, potassium 3. 7, chloride 103, bicarb 31, BUN 18, creatinine 0.96, glucose 294. Liver function tests unremarkable. Lipase 96. Discharge Medications And Instructions: Continue all prior home medications except following changes ; 1.Basaglar insulin, take 20 units at bedtime for 2 days, then 30 units at bedtime for 2 days, then 4 0 units at bedtime for 2 days, then 50 units at bedtime to continue your usual maintenance dose. 2.Start Cipro 500 mg 2 times a day with food for 1 week. 3.Metronidazole 500 mg 3 times a day with food for 1 week. 4.Stop Plavix, which is clopidogrel. 5.NovoLog insulin, take 5 units 3 times a day with meal for 2 days, then 6 units 3 times a day with meals for 2 days, then 7 units 3 times a day with meal for 2 days, then 8 units 3 times a day with me al for 2 days, then 9 unit 3 times a day with meal for 2 days, then 10 units 3 times a day with meal to continue as maintenance dose. 6.Follow up in my office next week. 7.Follow up with Dr. Peguero as per instruction. Hospital Course: This is a 62-year-old very pleasant female patient, who came into emergency room wi complaints of bleeding per rectum and lower abdominal pain. Please see dictated H and P for more information. After the patient was evaluated in the emergency room, she was admitted to the hospital . Hemodynamically, the patient remained stable during this hospitalization. Her hemoglobin was foll owed closely and that remained stable. Her bleeding problem has resolved. Initially, she had left l ower quadrant tenderness, which actually has resolved. Empiric IV antibiotics, Cipro and metronidazo le were started and GI consultation was obtained from her therapy assistant, Dr. Peguero. She was in itially on clear liquid diet, subsequently we advanced her diet and she has tolerated that very well. She is ambulating well and has no GI complaints. I suspect that her bleeding is diverticular bleed and I did recommend her to discontinue her Plavix permanently. She had [place] and coronary artery stent placement in 2017 and has not had any cardiac problems since that time and prior to this hospital ad mission, she was taking aspirin and Plavix. I did call and talk to her health assistant, Dr. Jang today and all the details were discussed with him and he agrees to discontinue Plavix permanently and the patient was made aware of this. We will see her at office next week for followup and she will f ollow up with Dr. Peguero to plan outpatient colonoscopy. Final Diagnoses: 1.Lower gastrointestinal bleeding. 2.Diverticulosis. 3.Mixed hyperlipidemia. 4.Coronary artery disease. 5.Chronic anti-platelet therapy. 6.Hypothyroidism. 7.Type 2 diabetes mellitus. BRIEN/MODL Voice ID: [id number] Report ID: [id number]
== END 2022-12-27 12:18 | disposition home or self-care (01) | DRG 379 ==
LOC: ER 00:06 → ERHOLD 02:32 → OBSVTOIN 21:55 → ERHOLD 12-26 11:12 → 2ND 12-26 15:18
PROVIDERS: ADMIT Internal Medicine; ATTEND Internal Medicine
DX: K57.31 Diverticulosis of large intestine without perforation or abscess with bleeding (principal); E03.9 Hypothyroidism, unspecified; N18.9 Chronic kidney disease, unspecified; E11.22 Type 2 diabetes mellitus with diabetic chronic kidney disease; E78.2 Mixed hyperlipidemia; I25.10 Atherosclerotic heart disease of native coronary artery without angina pectoris; I25.2 Old myocardial infarction; Z95.5 Presence of coronary angioplasty implant and graft; Z88.8 Allergy status to other drugs, medicaments and biological substances; Z20.822 Contact with and (suspected) exposure to COVID-19
CPT/HCPCS: 36415; 74177; 80048; 80076; 82947; 83690; 83735; 85018; 85025; 85610; 85730; 86705; 86706; 86803; 86850; 86900; 86901; 87811; 99285; G0378; G0433; J0744; J1815; Q9967

== ENCOUNTER 2023-01-15 07:20 | Day surgery (SDC) | payer OTHER ==
[2023-01-15] MEDS: NA CHLORIDE 0.9% 1,000 ML ONE ×2 (07:32→08:52)
[2023-01-15] MEDS ORDERED: NA CIT/CITRIC AC 30 ML ORAL UDC ONE (07:41)
[2023-01-15] MEDS ORDERED: propofoL 200 MG/20 ML VIAL IV ONE ×2 (08:59→09:00)
[2023-01-15] MEDS ORDERED: LIDOCAINE 1% MPF 5 ML VIAL ONE (09:00)
[2023-01-15] MEDS ORDERED: NS 0.9% VIAL 10 ML ONE (09:10)
[2023-01-15] MEDS ORDERED: EPHEDRINE SULF 50 MG/ML VIAL ONE (09:10)
[2023-01-15 14:31] VITALS: BP 106/61; TEMP 97.3; O2SAT 95
== END 2023-01-15 10:16 | disposition home or self-care (01) ==
LOC: OR 07:20
PROVIDERS: ATTEND Internal Medicine Gastroenterology
PROC: 0DJD8ZZ Inspection of Lower Intestinal Tract, Via Natural or Artificial Opening Endoscopic (ICD-10-PCS; principal; 2023-01-15 08:45)
DX: K92.1 Melena (principal); D64.9 Anemia, unspecified; K57.30 Diverticulosis of large intestine without perforation or abscess without bleeding; K64.8 Other hemorrhoids; E11.9 Type 2 diabetes mellitus without complications; E03.9 Hypothyroidism, unspecified; I25.2 Old myocardial infarction; K31.7 Polyp of stomach and duodenum
CPT/HCPCS: 82947; 45378; J2704 ×2; J2001; A4216; J7030

== ENCOUNTER 2023-12-17 14:39 | Inpatient (IN) | payer OTHER ==
[2023-12-17] MEDS ORDERED: GLUCAGON 1 MG/VIAL IM PRN (15:41)
[2023-12-17] MEDS ORDERED: D10W 250 ML BAG IV PRN (15:41)
[2023-12-17] MEDS: INSULIN REGULAR (HUMAN) 100 UNIT/ML SQ SCH ×2 (16:30→21:00)
[2023-12-17] MEDS: NA CHLORIDE 0.9% 1,000 ML IV SCH (17:43)
[2023-12-17 18:00] VITALS: BMI 24.7
[2023-12-17 18:17] LABS: Hematocrit 49.9 % (36.0-45.0); Lymphocytes % 26.9 % (15.3-44.8); MCV 98.1 fL (80-100); MPV 9.5 fL (7.6-11.3); Platelets 188 thou/uL (152-406); RBC Red Blood Cell Count 5.09 M/uL (3.86-4.86)
[2023-12-17 18:33] LABS: ALT/SGPT 18 U/L (13-56); Albumin 3.3 g/dL (3.4-5.0); Alkaline Phosphatase 87 U/L (45-117); BUN Blood Urea Nitrogen 20 mg/dL (7-18); Bicarbonate 27 mEq/L (21-32); Bilirubin Total 0.4 mg/dL (0.2-1.0); Glomerular Filtration Rate 56 ml/min (=/>90); Glucose Level 98 mg/dL (74-106); Magnesium 1.9 mg/dL (1.6-2.4); Potassium 2.9 mEq/L (3.5-5.1); Protein, Total 7.1 g/dL (6.4-8.2); Sodium Level 135 mEq/L (136-145)
[2023-12-17 18:34] LABS: AST/SGOT < 4 U/L (15-37)
[2023-12-17] MEDS ORDERED: POTASSIUM CL 40 MEQ in NA CHLORIDE 0.9% 500 ML IV SCH (19:00)
[2023-12-17] MEDS ORDERED: KCL 20 MEQ/100 mL IVPB 20 MEQ/100 ML BAG IV SCH ×2 (19:00→23:00)
[2023-12-17 19:18] LABS: White Blood Cell Scan OK (OK)
[2023-12-17 19:19] LABS: Blood Morphology Comment NOT SEEN (NOT SEEN); Platelet Estimate ADEQ
[2023-12-17 19:59] LABS: Specific Gravity > 1.030 (1.005-1.030); Urine Bacteria <20 /HPF (<20); Urine Bilirubin NEGATIVE (Negative); Urine Blood Negative (Negative); Urine Clarity Extremely Turbid (Clear); Urine Color Yellow (Yellow); Urine Crystals Unidentified Few /HPF (None Seen); Urine Glucose 1+ (Negative); Urine Mucus 4+ /HPF (None Seen); Urine Protein 2+ (Negative); Urine Urobilinogen Normal (Normal); Urine WBC Clump Few /HPF (None Seen)
[2023-12-17] MEDS: CIPROFLOXACIN 400mg IV 400 MG/200 ML BAG IV SCH (20:18)
[2023-12-17 21:00] LABS: C.diff Antigen/Toxin Ag neg : Tox neg (NEG : NEG)
[2023-12-18] MEDS: NA CHLORIDE 0.9% 1,000 ML IV SCH ×3 (05:12→20:41)
[2023-12-18] MEDS: LEVOTHYROXINE SOD 0.1 MG TAB PO SCH (05:13)
--- NOTE | 2023-12-18 06:35 | HP ---
Date of Admission: 12/17/2023 Chief Complaint: Diarrhea and shortness of breath. History Of Present Illness: This is a 63-year-old pleasant female patient who came into office today with 3-4 days history of diarrhea and shortness of breath. She denies any chest pain or palpitation s. She describes her diarrhea with frequency about 5 times a day and it is liquidy stool. Denies an y blood in stool. No abdominal pain. No fever, chills, nausea, vomiting. After she was evaluated a office, decision was made to admit her to the hospital with this problem. The patient's blood pres sure was low at office, arrangements were made for direct admission and the patient was admitted to [facility]. Allergies: TO NIACIN CAUSING RASH. Medications: Aspirin 81 mg daily; carvedilol 3.125 mg 2 times a day; Jardiance 25 mg daily; Basaglar insulin 50 units subcutaneously at bedtime; Humalog insulin, she takes 10-12 units 3 times a day at meal time; levothyroxine 200 mcg daily and 50 mcg, she takes 1 tablet daily except none on Friday; me tformin 500 mg 2 times a day; rosuvastatin 40 mg daily at bedtime; Mounjaro 5 mg subcutaneous injecti on once a week; vitamin B12 500 mcg daily. Review of Systems: Respiratory: As mentioned above. GI: As mentioned above. All other systems reviewed and negative. Social History: Negative for smoking and alcohol use. Family History: Father had diabetes, stroke. Mother, coronary artery disease, hypertension, stroke. Siblings with diabetes and thyroid disease. Past Surgical History: Right ankle surgery, coronary artery stent placement, July 14, 2017. Past Medical History: Hypothyroidism, type 2 diabetes mellitus, mixed hyperlipidemia, coronary arter y disease, history of myocardial infarction July 14, 2017, diverticulosis, hiatal hernia, and chron ic kidney disease stage 3. Physical Examination: Vital signs: At office, her blood pressure was 97/67; pulse was 123, regular; temperature 97.4; resp iratory rate 18; weight 163.4 pounds. General: Awake, alert, oriented, not in distress. HEENT: Head atraumatic, normocephalic. Conjunctivae nonerythematous. Sclerae white. Mouth, no thr ush or edema noted. Ears/Nose, no mass, lesion, discharge noted. Neck: Supple. No JVD, lymph nodes, bruit, thyromegaly noted. Lungs: Bilateral good equal air entry. Clear to auscultation. No rhonchi. No rales. Heart: Normal heart sounds, no murmur or gallop. Abdomen: Soft, bowel sounds normal. No guarding, rigidity, tenderness, mass, hepatosplenomegaly, dis tention, or bruit noted. Extremities: No leg edema. No calf tenderness. Skin: No rash, ulcer, cellulitis. Lymphatics: No lymph node enlargement in neck, supraclavicular, infraclavicular region. Neuro: No focal neurological deficit. Chest: Unremarkable. External Genitalia: Deferred. Rectal: Deferred. Laboratory Data: White count 11.1, hemoglobin 16.7, platelets 188. Sodium 135, potassium 2.9, chlor judy 103, bicarb 27, BUN 20, creatinine 1.11, glucose 98. Liver function tests unremarkable. Urinaly sis, leukocyte esterase 500, wbc more than 50, bacteria less than 20. Impression: 1.Acute gastroenteritis. 2.Volume depletion. 3.Hypokalemia. 4.Urinary tract infection. 5.Coronary artery disease. 6.Hypertension. 7.Mixed hyperlipidemia. 8.Type 2 diabetes mellitus. 9.Hypothyroidism. Plan: We will go ahead and admit the patient to hospital for further evaluation and management of th is problem. The patient is appropriate for inpatient and is [facility] IV fluid will be given for volume depletion problem. For hypokalemia, we will replace potassium per electrolyte replacement protocol and follow up on results. For her acute gastroenteritis, we [facility] go ahead and start her on Cipro. Stool culture and stool for C diff was ordered, we will follow up on that result. For urinary tract infection, we will go ahead and continue Cipro. Follow up on uri ne culture results. Diabetes will be managed with sliding scale insulin at this time and her long-ac ting insulin will be restarted at appropriate time. We will not give any carvedilol at this time con sidering low blood pressure problem. We will continue her aspirin and other home medications per ord er. DVT prophylaxis will be given using Lovenox. Plan of treatment discussed with the patient. I w ill see her tomorrow for followup. BRIEN/MODL Voice ID: [id number]
[2023-12-18] MEDS: INSULIN REGULAR (HUMAN) 100 UNIT/ML SQ SCH ×4 (07:30→20:40)
[2023-12-18] MEDS: CIPROFLOXACIN 400mg IV 400 MG/200 ML BAG IV SCH ×2 (07:35→20:40)
[2023-12-18] MEDS: ENOXAPARIN 40 MG/0.4 ML SQ SCH (07:35)
[2023-12-18] MEDS: ASPIRIN EC 81 MG TAB PO SCH (07:35)
[2023-12-18 08:28] LABS: Potassium 3.3 mEq/L (3.5-5.1)
[2023-12-18 08:32] LABS: Thyroid Stimulating Hormone 18.8 uIU/mL (0.358-3.740)
[2023-12-18] MEDS ORDERED: POTASSIUM 25 MEQ EFFERV TAB PO ONE ×2 (09:30→18:00)
[2023-12-19] MEDS: LEVOTHYROXINE SOD 0.1 MG TAB PO SCH (06:15)
[2023-12-19] MEDS: INSULIN REGULAR (HUMAN) 100 UNIT/ML SQ SCH ×4 (07:30→21:00)
[2023-12-19] MEDS: NA CHLORIDE 0.9% 1,000 ML IV SCH (08:00)
[2023-12-19] MEDS: ENOXAPARIN 40 MG/0.4 ML SQ SCH (08:42)
[2023-12-19] MEDS: CIPROFLOXACIN 400mg IV 400 MG/200 ML BAG IV SCH ×2 (08:43→22:22)
[2023-12-19] MEDS: ASPIRIN EC 81 MG TAB PO SCH (08:43)
[2023-12-19] MEDS ORDERED: POTASSIUM 25 MEQ EFFERV TAB PO ONE (09:00)
--- NOTE | 2023-12-19 10:24 | PN ---
Date of Progress Note: 12/18/2023 Subjective: The patient was seen this morning for followup. She was lying in bed, not in any distre ss. Denies any abdominal pain, nausea, vomiting. Reported that she had 2 watery liquidy bowel movem ents overnight after her admission to the hospital. She is tolerating clear liquid diet well. Objective: Vital Signs: Reviewed. HEENT: Unremarkable. Lungs: Clear to auscultation. Heart: Sounds normal. Abdomen: Soft. Bowel sounds normal. No guarding, rigidity, tenderness, distention. Extremities: No leg edema. Laboratory Data: Reviewed. Impression: 1.Acute gastroenteritis. 2.Hypokalemia. 3.Volume depletion. 4.Type 2 diabetes mellitus. 5.Coronary artery disease. Plan: We will go ahead and continue IV fluid. Continue current antibiotics. Urine culture result i s pending. Stool for C difficile came back negative. We will replace potassium per protocol and mon itor blood work. Continue IV Cipro, IV fluid, and ambulation was encouraged and we will change her d iet to full liquid diet. BRIEN/MODL Voice ID: [id number] Report ID: [id number]
[2023-12-19] MEDS: D5 0.9 NS 1,000 ML IV SCH (10:57)
[2023-12-19 12:30] LABS: Protime INR 1.24
[2023-12-19] MEDS: HEPARIN/D5W 25,000 UNIT/500 ML BAG IV SCH (14:50)
[2023-12-20 04:01] LABS: Absolute Lymphocytes (CBC) 2.9 K/uL (0.7-4.9); Hematocrit 40.8 % (36.0-45.0); MCV 99.1 fL (80-100); MPV 9.9 fL (7.6-11.3); Platelets 150 thou/uL (152-406); RBC Red Blood Cell Count 4.12 M/uL (3.86-4.86)
[2023-12-20 04:12] LABS: Magnesium 1.7 mg/dL (1.6-2.4); Potassium 3.4 mEq/L (3.5-5.1)
[2023-12-20] MEDS: LEVOTHYROXINE SOD 0.1 MG TAB PO SCH (06:27)
[2023-12-20] MEDS: D5 0.9 NS 1,000 ML IV SCH ×2 (07:00→11:44)
--- NOTE | 2023-12-20 07:12 | PN ---
Date of Progress Note: 12/19/2023 Subjective: The patient was seen this morning for followup. She was lying in bed, not in any distre ss, and overall, her diarrhea is better. Yesterday, she had about 3 loose watery bowel movement duri ng daytime and 2 during previous nights, altogether about 5 loose watery bowel movement since her adm ission. She reports that last night she only had 1 bowel movement. 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 No nausea, vomiting. No blood in stool. Overall, she feels better. She had complaints of tracy rtness of breath before she came in and that actually has resolved. No chest pain. Objective: Vital Signs: Reviewed. HEENT: Unremarkable. Lungs: Clear to auscultation. Cardiac: Heart sounds normal. Abdomen: Soft. Bowel sounds normal. No guarding, rigidity, tenderness, distention. Extremities: No leg edema. Impression: 1.Acute gastroenteritis. 2.Coronary artery disease. 3.Type 2 diabetes mellitus. 4.Hypothyroidism. 5.Hyperlipidemia. 6.Hypokalemia. Plan: We will go ahead and continue current antibiotics. Stool C diff came back negative. Stool cu lture is pending. We will have to make adjustment on her levothyroxine as her TSH is higher than nor mal range. Today decided to go ahead and order an echocardiogram to mainly evaluate her left ventric ular ejection fraction considering her blood pressure is running on the lower side with her history o f coronary artery disease, and after echocardiogram was done, today Dr. 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 Segovia to evaluate the patient from Cardiolog y point of view, and as he recommended, we started the patient on heparin drip immediately. He also suggested to keep the patient n.p.o. in case after he evaluates if he decides to take her to cardiac cath. We will continue to follow up with him and I will see her tomorrow for followup. BRIEN/MODL Voice ID: [id number] Report ID: [id number]
[2023-12-20] MEDS: INSULIN REGULAR (HUMAN) 100 UNIT/ML SQ SCH ×4 (07:30→20:26)
[2023-12-20] MEDS: ASPIRIN EC 81 MG TAB PO SCH (08:56)
[2023-12-20] MEDS: CIPROFLOXACIN 400mg IV 400 MG/200 ML BAG IV SCH ×2 (08:59→20:21)
[2023-12-20] MEDS ORDERED: POTASSIUM 25 MEQ EFFERV TAB PO ONE (09:00)
[2023-12-20] MEDS ORDERED: MAGNESIUM SULFATE 1 gm IVPB 1 GM/100 ML BAG IV ONE (09:00)
--- NOTE | 2023-12-20 12:06 | PN ---
Date of Progress Note: 12/20/2023 Subjective: The patient was seen this morning for followup. No new complaints or problems reported by the patient, lying in bed, not in any distress. Her was with her at bedside. She denies having any chest pain or shortness of breath. She had shortness of breath before she came into the h ospital, which has resolved now. The patient today also reports that her diarrhea problem has resolv ed now. So overall she is feeling much better. Objective: Vital Signs: Reviewed. HEENT: Unremarkable. Lungs: Clear to auscultation. Heart: Sounds normal. Abdomen: Soft. Bowel sounds normal. No guarding, rigidity, tenderness, distention. Extremities: No leg edema. Laboratory Data: Echocardiogram finding reviewed with core shaper top. Official result is pending, but details were discussed with Dr. Segovia today. Dr. Segovia informed me that the left ventricular apic al thrombus appears to be old and it is not new and he is not concerned about any acute myocardial ev ent. Impression: 1.Acute gastroenteritis. 2.Hypokalemia. 3.Coronary artery disease. 4.Left ventricular thrombus. 5.Type 2 diabetes mellitus. 6.Hypothyroidism. Plan: We will go ahead and continue current IV fluid. We will allow her to eat her diabetic diet. She is on heparin drip per protocol and we will start long-term anticoagulation therapy. At least, o ur plan is to do 6 months of anticoagulation therapy and we will go ahead and initiate that with dieudonne hernandez therapy. We will start warfarin as of this evening and continue heparin drip once the INR gets in the therapeutic range. We will discontinue her heparin drip at that time and then plan to dischar ge her to go home, so hopefully we might be able to discharge her to go home by Friday or so. Dr. Ra garcia has not suggested any other intervention at this point. We will continue Cipro and continue oth er current medical management and I will see her tomorrow for followup. BRIEN/MODL Voice ID: [id number] Report ID: [id number]
[2023-12-20] MEDS ORDERED: WARFARIN SODIUM 5 MG TAB PO ONE (21:00)
[2023-12-20] MEDS: HEPARIN/D5W 25,000 UNIT/500 ML BAG IV SCH (21:44)
[2023-12-21] MEDS: LEVOTHYROXINE SOD 0.1 MG TAB PO SCH (05:54)
[2023-12-21] MEDS: INSULIN REGULAR (HUMAN) 100 UNIT/ML SQ SCH ×4 (07:30→20:17)
[2023-12-21] MEDS: CIPROFLOXACIN 400mg IV 400 MG/200 ML BAG IV SCH ×2 (08:49→20:17)
[2023-12-21] MEDS: ASPIRIN EC 81 MG TAB PO SCH (08:49)
[2023-12-21 09:02] LABS: Protime INR 1.16
[2023-12-21] MEDS ORDERED: WARFARIN SODIUM 7.5 MG TAB PO SCH (21:00)
[2023-12-22] MEDS: LEVOTHYROXINE SOD 0.1 MG TAB PO SCH (05:44)
[2023-12-22] MEDS: HEPARIN/D5W 25,000 UNIT/500 ML BAG IV SCH (05:44)
[2023-12-22 06:20] LABS: Absolute Lymphocytes (CBC) 2.4 K/uL (0.7-4.9); Hematocrit 41.7 % (36.0-45.0); Lymphocytes % 27.5 % (15.3-44.8); MCV 98.8 fL (80-100); MPV 9.5 fL (7.6-11.3); Platelets 146 thou/uL (152-406); RBC Red Blood Cell Count 4.22 M/uL (3.86-4.86)
[2023-12-22 06:34] LABS: Protime INR 1.69
--- NOTE | 2023-12-22 06:36 | PN ---
Date of Progress Note: 12/21/2023 Subjective: The patient was seen this morning for followup. She was lying in bed, not in distress. Denies any complaints. No abdominal pain. No nausea, vomiting, and her diarrhea problem has resolv ed now. Objective: Vital Signs: Reviewed. HEENT: Unremarkable. Lungs: Clear to auscultation. Heart: Sounds normal. Abdomen: Soft. Bowel sounds normal. No guarding, rigidity, tenderness, distention. Extremities: No leg edema. Laboratory Data: Las reviewed. PT/INR results reviewed. Impression: 1.Acute gastroenteritis, improved. 2.Coronary artery disease. 3.Left ventricular thrombus. 4.Type 2 diabetes mellitus. 5.Hyperlipidemia. 6.Hypothyroidism. Plan: We will go ahead and continue current heparin drip. She is tolerating that very well. Does n ot show any signs of bleeding. She received 10 mg of warfarin last night and today we will give her 7.5 mg warfarin tonight. We will repeat PT/INR tomorrow morning and I did discuss with the patient i n details today regarding importance of close monitoring with PT/INR with her warfarin therapy and in teraction between vitamin K and other vitamin K content of different food discussed with her. She wa s advised to avoid dark green leafy vegetables and she was instructed to try to have more or less suki e amount of green vegetables for a smaller quantity on a daily basis since she likes to have green sa lad maybe 3 times a week. I instructed her to have a smaller quantity on a daily basis to have some consistency. She was also instructed to avoid any fall and head injury and was instructed to come to emergency room in the event if she has any bleeding like nosebleed, coughing up blood, blood in the urine, blood in stool, or any skin laceration that results in ongoing bleeding or any head injury she needs to report to emergency room to get further evaluation. Risk of spontaneous bleeding is small possible and all those details were discussed with her as well. She is going to think about whether she wants to continue to follow up with her logistics vice president in [place] or she wants to change to our [facility] logistics vice president, Dr. Segovia and says she is going to think about that and make appropriate decision a nd appointment with logistics vice president of her choice. She will have weekly PT/INR done at the office for c lose monitoring of warfarin therapy. She was instructed to stop aspirin once she starts this warfari n therapy. BRIEN/MODL Voice ID: [id number] Report ID: [id number]
[2023-12-22 06:41] LABS: Magnesium 2.2 mg/dL (1.6-2.4); Potassium 4.2 mEq/L (3.5-5.1)
--- NOTE | 2023-12-22 07:02 | ECHO ---
HEIGHT: 5 ft 8 in WEIGHT: 163 lb 0 oz DATE OF STUDY: 12/19/[address]: Armando Rodriguez MD 2-DIMENSIONAL: YES M.MODE: YES DOPPLER: YES COLOR FLOW: YES TDS: PORTABLE: YES DEFINITY: BUBBLE STUDY: DIAGNOSIS: CORONARY ARTERY DISEASE CARDIAC HISTORY: CATHERIZATION: YES SURGERY: NO PROSTHETIC VALVE: NO PACEMAKER: NO MEASUREMENTS (cm) DIASTOLIC (NORMALS) SYSTOLIC (NORMALS) IVSd 0.9 (0.6-1.2) LA Diam 3.0 (1.9-4.0) LVEF 50% LVIDd 4.5 (3.5-5.7) LVIDs 3.4 (2.0-3.5) %FS 25% LVPWd 1.0 (0.6-1.2) Ao Diam 2.7 (2.0-3.7) 2 DIMENSIONAL ASSESSMENT: RIGHT ATRIUM: NORMAL LEFT ATRIUM: NORMAL RIGHT VENTRICLE: NORMAL LEFT VENTRICLE: NORMAL TRICUSPID VALVE: NORMAL MITRAL VALVE: MILD MITRAL REGURGITATION PULMONIC VALVE: NORMAL AORTIC VALVE: NORMAL PERICARDIAL EFFUSION: NONE AORTIC ROOT: NORMAL LEFT VENTRICULAR WALL MOTION: APICAL DISKINESIS (DISTAL) DOPPLER/COLOR FLOW: SEE BELOW COMMENTS: 1. LOW NORMAL LEFT VENTRICULAR EJECTION FRACTION OF 50-55% 2. DISTAL APICAL DYSKINESIS 3. APICAL LEFT VENTRICULAR THROMBUS IS SEEN MEASURING 1.5 BY 1.4 CENTIM[employer]ERS 4. MILD MITRAL REGURGITATION TECHNOLOGIST: YANG HEMPHILL
[2023-12-22] MEDS: INSULIN REGULAR (HUMAN) 100 UNIT/ML SQ SCH ×4 (07:30→20:32)
[2023-12-22] MEDS: ASPIRIN EC 81 MG TAB PO SCH (08:00)
--- NOTE | 2023-12-22 16:56 | EKG ---
Test Date: 2023-12-20 Test Time: 15:31:43 Flatbed Press Operator: REBEKAH MEASUREMENT RESULTS: Intervals: Rate: 67 CA: 156 QRSD: 88 QT: 438 QTc: 462 [place]: P: 46 CA: 156 QRS: 0 T: 64 INTERPRETIVE STATEMENTS: Normal sinus rhythm Nonspecific T wave abnormality Abnormal ECG Compared to ECG 03/11/2022 18:42:37 T-wave abnormality now present ST (T wave) deviation no longer present Possible ischemia no longer present Electronically Signed On 12-22-23 16:52:31 [employer] by [place] Segovia
--- NOTE | 2023-12-22 18:36 | CON ---
Date of Consultation: 12/19/2023 Reason For Consultation: Abnormal echo findings. History Of Present Illness: A 63-year-old female with history of coronary artery disease, status pos t CT to the LAD with PCI many years back. She is following up with cell room supervisor in [place]. Denies having any chest pain or shortness of breath. She was admitted with some diarrhea. An echo was orde red and found to have large LV apical thrombus, hence I was consulted. I evaluated her by bedside. She has no chest pain, but she has history of CT in the past as outlined above. Past Medical History: As outlined above. Coronary artery disease, hypertension, stroke. Medications: Refer to reconciliation sheet for detailed list. Allergies: NIACIN. Family History: No premature coronary artery disease or cancer. Social History: She does not smoke or drink. Does not use any drugs. Review of Systems: All systems reviewed and they were negative except what mentioned in HPI. Physical Examination: Vital Signs: Reviewed. Head and Neck: Pupils are equal, reactive to light. Intact eye movements. No JVD. No cervical lym phadenopathy. Neck is supple. Thyroid is not enlarged. Lungs: Clear to auscultation bilaterally. No rhonchi, wheezing, or crackles. No accessory muscle u se. Heart: Regular rate and rhythm. No extra sounds. Abdomen: Soft, nontender. Bowel sounds positive. No organomegaly. No masses or hernia. No rigidi ty or rebound. Extremities: No edema, clubbing, or cyanosis. Intact pulses. Skin: No rash. Neurologic: Alert, awake, oriented x3. No acute focal deficits appreciated. Investigations: Labs were reviewed. Assessment And Recommendations: 1.Apical LV thrombus 1.5 x 1.4 cm. Recommend start her on IV heparin or Lovenox to bridge with Coum shen until INR is between 2 and 3 and recommend further evaluation of this in few months post anticoa gulation. On the echo there is dyskinesis of the apex, but the EF is normal and she has no active sy mptoms of ischemia or chest pain. 2.Coronary artery disease. No chest pain. She had history of heart attack in the past that was cor rected and she follows up with a cell room supervisor. As a result of the apical dyskinesis, she developed a n LV apical thrombus. Continue anticoagulation. Thank you for the consult. The patient is to follow up with her primary cell room supervisor post discharge and Cardiology will sign off. SR/MODAnneliese Voice ID: [id number] Report ID: [id number]
--- NOTE | 2023-12-22 20:03 | PN ---
Date of Progress Note: 12/22/2023 Subjective: The patient was seen this morning for followup. She was lying in bed, not in distress. No abdominal pain, nausea, vomiting. No diarrhea. Objective: Vital Signs: Reviewed. HEENT: Unremarkable. Lungs: Clear to auscultation. Heart: Sounds normal. Abdomen: Soft. Bowel sounds normal. No guarding, rigidity, tenderness, distention. Extremities: No leg edema. Laboratory Data: INR 1.69. CBC unremarkable. Impression: 1.Acute gastroenteritis, resolved. 2.Left ventricular thrombus. 3.Coronary artery disease. 4.Hypertension. 5.Hyperlipidemia. 6.Diabetes mellitus. 7.Hypothyroidism. Plan: Patient takes levothyroxine 200 mcg daily and levothyroxine 50 mcg 1 tablet daily from Friday through Friday and does not take it on Friday. So, with elevated TSH that we have seen in the hosp ital, I have instructed her to change her levothyroxine 50 mcg and to take 1 tablet daily and not to skip Sundays and she will continue her 200 mcg every day as prescribed before. I will discontinue he nancy Colero today and her INR was 1.69. She got warfarin 7.5 mg yesterday and 10 mg day before, so today I will give her 5 mg warfarin. I will repeat PT/INR tomorrow and I am hoping by tomorrow, her INR w ill be between 2-3 and then we will plan to discharge her to go home tomorrow depending on her INR. Continue heparin drip per protocol. Continue current diabetes management. I will see her tomorrow morning. BRIEN/MODL Voice ID: [id number] Report ID: [id number]
[2023-12-22] MEDS ORDERED: WARFARIN SODIUM 5 MG TAB PO SCH (21:00)
[2023-12-22 22:25] VITALS: O2SAT 95
[2023-12-23] MEDS: LEVOTHYROXINE SOD 0.1 MG TAB PO SCH (06:15)
[2023-12-23] MEDS ORDERED: LEVOTHYROXINE SOD 0.05 MG TABLET PO SCH (06:30)
[2023-12-23 06:36] LABS: Protime INR 2.2
[2023-12-23 08:31] VITALS: BP 88/56; TEMP 97.3
== END 2023-12-23 09:45 | disposition home or self-care (01) | DRG 392 ==
LOC: 2ND 14:39 → UNDOADMOB 14:39 → OBSVTOIN 20:55
PROVIDERS: ADMIT Internal Medicine; ATTEND Internal Medicine
DX: K52.9 Noninfective gastroenteritis and colitis, unspecified (principal); N39.0 Urinary tract infection, site not specified; E86.9 Volume depletion, unspecified; E87.6 Hypokalemia; E78.2 Mixed hyperlipidemia; E03.9 Hypothyroidism, unspecified; N18.30 Chronic kidney disease, stage 3 unspecified; E11.22 Type 2 diabetes mellitus with diabetic chronic kidney disease; I51.3 Intracardiac thrombosis, not elsewhere classified; I25.2 Old myocardial infarction; I25.10 Atherosclerotic heart disease of native coronary artery without angina pectoris; Z88.1 Allergy status to other antibiotic agents; Z95.5 Presence of coronary angioplasty implant and graft; Z79.4 Long term (current) use of insulin; Z79.82 Long term (current) use of aspirin; Z79.02 Long term (current) use of antithrombotics/antiplatelets; Z79.84 Long term (current) use of oral hypoglycemic drugs; Z79.890 Hormone replacement therapy; Z79.899 Other long term (current) drug therapy
CPT/HCPCS: 36415; 80048; 80053; 81001; 82947; 83036; 83735; 84132; 84439; 84443; 84484; 85025; 85610; 85730; 87045; 87046; 87086; 87088; 87324; 93005; 93306; G0378; G0379; J0744; J1644; J1650; J1815; J3475; J3480; J7030; J7040; J7042